=== PATIENT | female | born 1945 | race Caucasian/White ===

== ENCOUNTER 2024-01-16 14:05 | Inpatient (IN) ==
--- NOTE | 2024-01-16 14:19 | ED Triage Note ---
Date of Service January 16, 2024 Provider in Triage Author: Jesus Conley History of Present Illness This patient was briefly evaluated while in triage. An abbreviated physical exam was performed. This patient is a 78-year-old Female who presents to the ED for evaluation nausea/vomiting/diarrhea, weakness, syncope in the last several days seen by urology today and was scheduled for surgery tomorrow came from [facility] with sodium on 121 wasn't taking diabetic medications x 5 days, BSGs were in the 400s Physical Exam GENERAL: NAD CARDIOVASCULAR: RRR RESPIRATORY: CTA ABDOMEN: BS x 4. Nontender to palpation. Initial orders for labs and / or imaging were placed and patient was placed in the waiting area until a bed is available. Please see further documentation for the full ED course.
--- NOTE | 2024-01-16 15:31 | Emergency Department Note ---
Impression & Plan Weakness, Mass of bladder, Acute hyponatremia, Elevated serum creatinine ED Provider Note Provider: Walker Rahman MD DATE OF SERVICE: 01/16/2024 CHIEF COMPLAINT: Weight, nausea, abnormal blood work HISTORY OF PRESENT ILLNESS: Patient is a 78-year-old female distant history of cervical cancer, [id number] diabetes, hypertension, and recently found bladder mass sent in today after abnormal blood work. Patient's for about the past 3 weeks has been having some pain in the left lower quadrant of the abdomen/groin region. Lives in [place] by herself. Had a workup there in the outpatient setting with a CT scan showing a left bladder mass. Son lives in town here and works for the health system and as such patient came here for urology appointment regarding this today. Patient saw urology and then went to anesthesia for eval for likely cystoscopy and surgery tomorrow with urology. From this her sodium level was noted to be 121. Patient has been reporting over the past week significant nausea and vomiting. Increased weakness. Continued pain but no change in the left lower quadrant abdominal pain. Denies chest pain. Maybe a little bit winded with exertion and some mild headaches at times. Last night had a near syncopal event but did not fall to the ground when getting out of the shower. Family was there to help her. W was reportedly "out of it "for a few hours according to son and [id number]. Moving all extremities now. Does endorse a little bit of nausea. Blood sugars have been running high and the patient for almost a week has not been taking her home medications. Lives by herself but on the weekend family went to get her and bring her here so she could be cared for until her appointment today and they are concerned how long she may have been weak and not herself there. Patient does straight cath. PAST MEDICAL HISTORY: As noted above MEDICATIONS: Reviewed no medications although several days last week did not take. Has been doing hydrocodone for pain SOCIAL HISTORY: Normally resides by herself PHYSICAL EXAM: GENERAL: alert and oriented in no acute distress on stretcher Head: normocephalic and atraumatic EYES: No injection, discharge or icterus. EOMI. NECK: Trachea midline. ENT: Mucous membranes pink and moist. LUNGS: Airway patent. No retractions. Breath sounds clear with good air entry bilaterally. HEART: Regular rate and rhythm. No chest wall tenderness ABDOMEN: Soft with some mild left lower quadrant tenderness. No left flank tenderness. No peritonitis or guarding. SKIN: Acyanotic, warm, dry, without rashes EXTREMITIES: Without swelling, tenderness or deformity NEUROLOGICAL: No focal deficits. No aphasia. No facial droop or slurred speech. Ambulatory. EK bpm sinus rhythm occasional PVC. No acute ST segment elevation or depression with a QTc of 450. CONTINUOUS CARDIAC MONITORING: was ordered and showed a heart rate of 80s to 90s bpm in normal sinus rhythm rare PVCs Patient's laboratory studies and imaging reviewed. Differential includes electrolyte abnormality, CVA, ICH, meningitis, ACS, PE, appendicitis, infections, diverticulitis, UTI, obstruction, mesenteric ischemia, aortic pathology, inflammatory bowel disease, renal colic, PUD, pancreatitis, biliary pathology, hernia, volvulus, constipation, as well as other pathologies. IMPRESSION/MEDICAL DECISION MAKING: Did recheck chemistries here and confirms hyponatremia sodium 121. Patient answers questions and seems appropriate here. Does seem to minimize symptoms to some degree. Blood work shows a creatinine 1.6. Known history of left bladder mass and some left hydronephrosis based on outpatient scan available in the medical record system. Was following with urology with hopes for possible surgical evaluation of this and procedure. Given the low sodium and her nausea and vomiting discussed with her staying here for further care. Some IV fluid and antiemetics given here. Hydrocodone is working for pain at this time and she did not request anything further for this. Will have nursing obtain a straight cath bladder sample as the patient straight caths. Patient's abdominal pain has been constant and has had CT imaging for this and do not feel at this time we need repeat imaging. There are no other significant focal neurological deficits and I doubt acute CVA or head bleed at this point. Family updated on plan for further care here and hospitalist contacted. DIAGNOSIS: Weakness, hyponatremia, bladder mass, elevated creatinine DISPOSITION: Hospitalist will evaluate Patient was agreeable with this plan. Past Med/Surg History Problem List (Updated 01/16/24 @ 17:42 by Prema Bryson PA-C) Diabetes mellitus type 2 in nonobese Ureteral obstruction, left UTI (urinary tract infection) Pelvic mass Elevated serum creatinine (Acute) Acute hyponatremia (Acute) Mass of bladder (Acute) Weakness (Acute) Bladder mass Gross hematuria Encounter for pre-operative examination Hypertension Diabetes Prolapse of female pelvic organs Acute urinary retention Frequent UTI Medical History (Updated 01/16/24 @ 17:42 by Prema Bryson PA-C) Bladder mass Osteoporosis Gross hematuria GERD (gastroesophageal reflux disease) Sleep apnea no device Family history of reaction to anesthesia SISTER - N/V Nausea and vomiting after administration of anesthetic agent Frequent UTI as of 01/16/24, currently on abx HTN (hypertension) Diabetes NIDDM Per patient's daughter in law- patient went off DM meds five days ago- as of 01/15/24- glucose was in 400s- patient restarted diabetes meds 01/15/24 (except Ozempic) Cervical cancer hx 1982, hx radiation , and 2 nicole implants Surgical History S/P cystoscopy with ureteral stent placement w/ureteroscopy, bilat. RP, urethral dilation, 2021 History of endoscopy History of colonoscopy History of surgery nicole implants for hx cervical cancer History of cholecystectomy Family History Grandmother Family history of diabetes mellitus Mother Pre-diabetes Social History Smoking Status: Never smoker Second Hand Exposure: No; Do You Dip or Chew Tobacco: No; Hx Alcohol Use: Yes (years ago, no longer drinks) Hx Substance Use: No Preferred Language: Persian Communication Ability: Effective Elastic Attacher Chainstitch Required: No Beliefs That Will Affect Care: None marital status: / Current Living Situation: Alone current occupational status: retired Feels Safe at Home: Yes Assistive Devices: Glasses Allergies Allergies Allergy/AdvReac Type Severity Reaction Status Date / Time No Known Allergies Allergy Verified 01/16/24 11:49 Home Meds Home Medications Medication Instructions Recorded Confirmed diltiazem HCl 180 mg 180 mg PO QAM 06/23/21 01/16/24 capsule,extended release 24 hr (Cardizem CD) glipizide 10 mg tablet 10 mg PO QAM 06/23/21 01/16/24 lisinopril 20 mg tablet 20 mg PO QAM 06/23/21 01/16/24 magnesium oxide 400 mg PO BID 06/23/21 01/16/24 metformin 500 mg tablet 1,000 mg PO BID 06/23/21 01/16/24 pantoprazole 40 mg tablet,delayed 40 mg PO QAM 06/23/21 01/16/24 release (Protonix) sitagliptin phosphate 100 mg 100 mg PO QAM 06/23/21 01/16/24 tablet (Januvia) cinnamon bark 500 mg capsule 1,000 mg PO QAM 07/14/21 01/16/24 (Cinnamon) multivitamin 1 cap PO QAM 07/14/21 01/16/24 prednisone 2 mg tablet,delayed 2 mg PO QAM 07/14/21 01/16/24 release fluconazole 200 mg tablet 200 mg PO DAILY 01/16/24 01/16/24 gabapentin 400 mg capsule 400 mg PO TID 01/16/24 01/16/24 hydrocodone bitartrate 10 mg 10 mg PO Q4H PRN Pain 01/16/24 01/16/24 capsule, oral only, extended rel 12 hr pravastatin 20 mg tablet 20 mg PO DAILY 01/16/24 01/16/24 semaglutide 0.25 mg or 0.5 mg (2 0.5 mg subcut Q7D 01/16/24 01/16/24 mg/3 mL) subcutaneous pen injector (Ozempic) Results & Data (ED) Vital Signs Vital Signs - 24 hr 01/16/24 14:17 01/16/24 14:57 01/16/24 14:57 Temperature 36.4 C L Temperature Source Oral Pulse Rate 82 85 Pulse Rate [Apical] 87 Respiratory Rate 18 17 17 Respiratory Effort / Characteristics Non-Labored Spontaneous Non-Labored Spontaneous Respiratory Depth Normal Normal Respiratory Pattern Regular Blood Pressure 105/58 L Blood Pressure [Left Arm] 106/56 L Blood Pressure Mean 73 Blood Pressure Mean [Left Arm] 72 Blood Pressure Position [Left Arm] Sitting Pulse Oximetry 98 99 98 Oxygen Delivery Method Room Air Room Air Room Air Sepsis Recent Fever Within 48 Hours No Sepsis New/Unexplained Change in Mental Status N/A Sepsis Action Taken by Nursing No Action Required 01/16/24 15:07 01/16/24 16:08 Temperature Temperature Source Pulse Rate 93 H Pulse Rate [Apical] 81 Respiratory Rate 20 Respiratory Effort / Characteristics Non-Labored Spontaneous Respiratory Depth Normal Respiratory Pattern Blood Pressure Blood Pressure [Left Arm] 121/65 Blood Pressure Mean Blood Pressure Mean [Left Arm] 83 Blood Pressure Position [Left Arm] Semi-fowlers Pulse Oximetry 96 Oxygen Delivery Method Room Air Sepsis Recent Fever Within 48 Hours Sepsis New/Unexplained Change in Mental Status Sepsis Action Taken by Nursing Laboratory Data 01/16/24 20:13 Lab Results 01/16/24 01/16/24 Range/Units 15:07 16:26 Sodium 121 L (136-145) mmol/L Potassium 3.4 L (3.5-5.1) mmol/L Chloride 87 L (98-107) mmol/L Carbon Dioxide 23 (21-32) mmol/L Anion Gap 11 (3-11) BUN 19 (6-23) mg/dl Creatinine 1.66 H (0.6-1.2) mg/dl Est Cr Clr Drug Dosing 26.6 ml/min eGFR 31.58 BUN/Creatinine Ratio 11.4 (10-20) Glucose 123 H (70-99(Fasting)) mg/dl Osmolality 259 L (280-300) mOsm/kg Calcium 8.3 L (8.6-10.3) mg/dl Magnesium 1.7 (1.7-2.4) mg/dl Total Bilirubin 0.5 (0.2-1.0) mg/dl AST 33 (13-39) U/L ALT 20 (7-52) U/L Alkaline Phosphatase 54 (34-104) U/L Troponin I High Sens 11.1 (0-14) pg/ml Total Protein 6.9 (6.0-8.3) gm/dl Albumin 3.2 L (3.4-5.0) gm/dl Globulin 3.7 (2.5-4.0) gm/dl Albumin/Globulin Ratio 0.9 (0.9-2) TSH 2.523 (0.300-4.500) uIu/ml Urine Color Dark Yellow Urine Appearance Turbid A (Clear) Urine pH 5.5 (4.5-7.5) Ur Specific [place] 1.018 (1.000-1.030) Urine Protein 2+ H (Negative) Urine Glucose (UA) Negative (Negative) Urine Ketones Trace H (Negative) Urine Blood 2+ H (Negative) Urine Nitrite Negative (Negative) Urine Bilirubin Negative (Negative) Urine Urobilinogen Negative (Negative) Ur Leukocyte Esterase 3+ H (Negative) Urine WBC (Auto) >50 H (0-5) /hpf Urine RBC (Auto) 0-2 (0-2) /hpf U Hyaline Cast (Auto) >20 H (0-2) /lpf U Epithel Cells (Auto) 6-10 H (0-2) /hpf Urine Bacteria (Auto) None Seen (None Seen) Urine Mucus Present A (None Prsent) Urine Osmolality 307 L (500-800) mOsm/kg Ur Random Sodium 57 mmol/L Administered Medications Acetaminophen (Acetaminophen 325 Mg Tab) 650 mg PO Q4H PRN PRN Reason: Pain or Fever Stop: 02/15/24 19:26 Last Admin: 01/16/24 21:06 Dose: 650 mg Documented By: JUAN Gabapentin (Gabapentin 400 Mg Cap) 400 mg PO TID [facility] Stop: 02/15/24 20:59 Last Admin: 01/16/24 21:06 Dose: 400 mg Documented By: JUAN Ceftriaxone Sodium (Rocephin) 2,000 mg in 50 mls @ 100 mls/hr IV Q24H [facility] Stop: 01/26/24 17:59 Last Infusion: 01/16/24 18:50 Dose: Infused Documented By: Admin: 01/16/24 18:19 Dose: 100 mls/hr Documented By: ADRIANO Insulin Aspart (Insulin Aspart Per Unit Charge) 0 units SC ACHS [facility] Stop: 02/15/24 19:26 Last Admin: 01/16/24 21:47 Dose: Not Given Documented By: Admin: 01/16/24 20:57 Dose: Not Given Documented By: JUAN Insulin Glargine (Lantus Per Unit Charge) 6 units SQ BID [facility] Stop: 02/15/24 20:59 Last Admin: 01/16/24 21:47 Dose: Not Given Documented By: JUAN Miscellaneous (Carbohydrates For Hypoglycemia ) 15 - 30 gm PO UD PRN PRN Reason: Hypoglycemia Protocol Stop: 02/15/24 19:26 Last Admin: 01/16/24 20:58 Dose: 30 gm Documented By: JUAN Discontinued Medications Sodium Chloride (Nss) 500 mls @ 999 mls/hr IV .Q31M ONE Stop: 01/16/24 15:51 Last Infusion: 01/16/24 17:00 Dose: Infused Documented By: Admin: 01/16/24 16:10 Dose: 999 mls/hr Documented By: ADRIANO Ondansetron HCl (Ondansetron Inj 2 Mg/Ml 2 Ml Vial) 4 mg IV NOW STA Stop: 01/16/24 15:22 Last Admin: 01/16/24 16:10 Dose: 4 mg Documented By: ADRIANO Potassium Chloride (Potassium Chloride Crtab 20 Meq Tabcr) 40 meq PO NOW STA Stop: 01/16/24 17:18 Last Admin: 01/16/24 18:18 Dose: 40 meq Documented By: ADRIANO Discharge Plan Visit Data Chief Complaint: Abnormal Labs/Diagnostic Testing Stated Complaint: HIGH SODIUM LEVEL ED Provider: Walker Rahman Discharge Problem: Weakness, Mass of bladder, Acute hyponatremia, Elevated serum creatinine Patient Disposition: Being Evaluated by Hospitalist Discharge Instructions Interventions: ED Discharge Assessment Last Done: 01/16/24 20:18
[2024-01-16 15:52] LABS: Albumin Globulin Ratio 0.9 (0.9-2); Albumin Level 3.2 gm/dl (3.4-5.0); BUN Creatinine Ratio 11.4 (10-20); Bilirubin,Total 0.5 mg/dl (0.2-1.0); Calcium 8.3 mg/dl (8.6-10.3); Creatinine Clr Calc Pharmacy 26.6 ml/min; Globulin 3.7 gm/dl (2.5-4.0); Magnesium 1.7 mg/dl (1.7-2.4); Potassium 3.4 mmol/L (3.5-5.1); Total Protein 6.9 gm/dl (6.0-8.3)
[2024-01-16 15:59] LABS: Troponin I High Sensitivity 11.1 pg/ml (0-14)
[2024-01-16 16:08] LABS: Thyroid Stimulating Hormone 2.523 uIu/ml (0.300-4.500)
[2024-01-16] MEDS: ONDANSETRON INJ 2 MG/ML 2 ML VIAL IV STA (16:10)
[2024-01-16] MEDS: SODIUM CHLORIDE 0.9% 500 ML IV ONE (16:10)
[2024-01-16 17:05] LABS: Appearance Urine Turbid (Clear); Bacteria Urine Automated None Seen (None Seen); Bilirubin Urine Negative (Negative); Blood Urine 2+ (Negative); Cast Urine Automated >20 /lpf (0-2); Color Urine Dark Yellow; Glucose Urine UA Negative (Negative); Ketones Urine Trace (Negative); Leukocyte Esterase Urine 3+ (Negative); Mucus Urine Present (None Prsent); Nitrite Urine Negative (Negative); Protein Urine 2+ (Negative); RBC Urine Automated 0-2 /hpf (0-2); Specific Gravity Urine 1.018 (1.000-1.030); Urobilinogen Urine Negative (Negative); WBC Urine Automated >50 /hpf (0-5); pH Urine 5.5 (4.5-7.5)
--- NOTE | 2024-01-16 17:26 | History & Physical Report ---
Date of Service January 16, 2024 Assessment & Plan (1) Acute hyponatremia: Plan: Hypochloremic hyponatremia in setting of a 6x6 cm pelvic mass, n/v/d and poor oral intake - Admit to pcu - Diabetic diet - Urine osmol 307 mOsm and serum osmol is 259 suggestive of SIADH - Random urine sodium ordered, pending - Possibly mixed picture with a degree of dehydration, received 1L of NSS in ED - Repeat BMP @ 2100 and 4h until AM - Defer further fluids for now and fluid restrict to 1500 ml (2) Pelvic mass: Plan: Newly found/discovered, highly suspicious for malignancy - Likely the cause of her left lower quadrant pain and appears to be stemming from the cervix and invading the bladder and compressing the left ureter - Case discussed with Dr. Johnson, plans for tissue bx and possibly left ureteral stent tomorrow (01/16) - NPO after MN - Pain control with Dilaudid 0.25mg q4 prn moderate pain and 0.5mg q4 prn severe pain - Antiemetics with Zofran 4mg IV q6 prn n/v (3) UTI (urinary tract infection): Plan: Acute - No culture data to review as this was done at outside hospital - Leukocytosis on CBC this AM with neutrophilic predominance - UA appears grossly infected, urine culture ordered, pending - Received 3 doses of Macrobid, will d/c in favor of Ceftriaxone 2g IV daily, first dose now - Repeat CBC in AM (4) Ureteral obstruction, left: Plan: Uncertain chronicity but from effect of pelvic mass and likely contributing to her elevation in her serum creatinine - Received 1L of NSS, defer further fluids for now - NPO after MN and consult to urology, Dr. Johnson, OR tomorrow for possible stent placement - Hold Lisinopril and avoid any nephrotoxic meds in setting of mild IVONNE, repeat BMP in AM (5) Diabetes mellitus type 2 in nonobese: Plan: Chronic - Not taking any of her medications - Hold all DM meds - Basal/bolus ordered - Accuchecks ac and hs - Update A1c Plan Other medical issues - Hypokalemia - replaced with KCl 40 meq pox1 - HTN - chronic, continue Diltiazem - GERD - continue Protonix - Chronic right shoulder pain - placed on Prednisone 2mg daily x several years, does not require stress dose steroids at present. continue. Defer Lovenox due to plans for OR tomorrow with tissue bx. Will order SCDs to b/l LE. PT/OT eval and treat. AM labs ordered. Plan of care has been d/w Dr. Altamirano who will also see and evaluate this patient. Further orders will be implemented as warranted by attending. History of Present Illness Chief Complaint: Abnormal labs Primary Care Provider: MACRINA Ramirez Rosaura is a 78 yo F with a pmhx of cervical cancer s/p radiation in 1982, DMT2, HTN, and HLD who presents to the ER accompanied by her family with multiple complaints/concerns. The patient normally lives alone in [place] and her family reside in [place] (son and daughter in law). Reportedly, the patient has been suffering from over 3 weeks of left sided pelvic pain. The patient notes that her pain is exacerbated by certain position changes. She also notes that over the past week she has been having episodes of diarrhea, nausea, dry heaves and vomiting. She does not feel that it has worsened since the onset 3 weeks ago, however, since the onset, she finally presented to her family doctor last Tuesday for evaluation. She was referred to the ER where she lives where she underwent a CT scan as well as urine studies. She was found to have a pelvic mass that is compressing her left ureter as well as a UTI. She was ordered an antibiotic but it was not picked up and started until this past Tuesday by her family. Her family, who works at [employer], was able to make arrangements for her to be seen by [facility]. She had labs done this AM and had an appointment with Dr. Johnson who reviewed her CT and wanted to make arrangements for an elective tissue biopsy as well as a possible stent of the left ureter, however, she was found to have a sodium level of 121. Family felt that she warranted evaluation and possible admission and brought her to the ER. In her earlier labs, she was also noted to have a leukocytosis of 15.25 with neutrophilic predominance. Her creatinine is elevated 1.66 and potassium is low at 3.4. Her family notes that she has not been taking any of her medications and that she has not been eating/drinking well. She is also unsteady on her feet and they are concerned about her being a fall risk. In the ER, she was medicated with a dose of IV Zofran and received 1L of NSS and has been referred for admission to the hospital medicine service. Allergies Allergy/AdvReac Type Severity Reaction Status Date / Time No Known Allergies Allergy Verified 01/16/24 11:49 Home Medications Medication Instructions Recorded Confirmed Type diltiazem HCl 180 mg 180 mg PO QAM 06/23/21 01/16/24 History capsule,extended release 24 hr (Cardizem CD) glipizide 10 mg tablet 10 mg PO QAM 06/23/21 01/16/24 History lisinopril 20 mg tablet 20 mg PO QAM 06/23/21 01/16/24 History magnesium oxide 400 mg PO BID 06/23/21 01/16/24 History metformin 500 mg tablet 1,000 mg PO BID 06/23/21 01/16/24 History pantoprazole 40 mg tablet,delayed 40 mg PO QAM 06/23/21 01/16/24 History release (Protonix) sitagliptin phosphate 100 mg 100 mg PO QAM 06/23/21 01/16/24 History tablet (Januvia) cinnamon bark 500 mg capsule 1,000 mg PO QAM 07/14/21 01/16/24 History (Cinnamon) multivitamin 1 cap PO QAM 07/14/21 01/16/24 History prednisone 2 mg tablet,delayed 2 mg PO QAM 07/14/21 01/16/24 History release fluconazole 200 mg tablet 200 mg PO DAILY 01/16/24 01/16/24 History gabapentin 400 mg capsule 400 mg PO TID 01/16/24 01/16/24 History hydrocodone bitartrate 10 mg 10 mg PO Q4H PRN Pain 01/16/24 01/16/24 History capsule, oral only, extended rel 12 hr pravastatin 20 mg tablet 20 mg PO DAILY 01/16/24 01/16/24 History semaglutide 0.25 mg or 0.5 mg (2 0.5 mg subcut Q7D 01/16/24 01/16/24 History mg/3 mL) subcutaneous pen injector (Ozempic) Past Med/Surg History Problem List (Updated 01/16/24 @ 17:42 by Prema Bryson PA-C) Diabetes mellitus type 2 in nonobese Ureteral obstruction, left UTI (urinary tract infection) Pelvic mass Elevated serum creatinine (Acute) Acute hyponatremia (Acute) Mass of bladder (Acute) Weakness (Acute) Bladder mass Gross hematuria Encounter for pre-operative examination Hypertension Diabetes Prolapse of female pelvic organs Acute urinary retention Frequent UTI Medical History (Updated 01/16/24 @ 17:42 by Prema Bryson PA-C) Bladder mass Osteoporosis Gross hematuria GERD (gastroesophageal reflux disease) Sleep apnea no device Family history of reaction to anesthesia SISTER - N/V Nausea and vomiting after administration of anesthetic agent Frequent UTI as of 01/16/24, currently on abx HTN (hypertension) Diabetes NIDDM Per patient's daughter in law- patient went off DM meds five days ago- as of 01/15/24- glucose was in 400s- patient restarted diabetes meds 01/15/24 (except Ozempic) Cervical cancer hx 1982, hx radiation , and 2 nicole implants Surgical History S/P cystoscopy with ureteral stent placement w/ureteroscopy, bilat. RP, urethral dilation, 2021 History of endoscopy History of colonoscopy History of surgery nicole implants for hx cervical cancer History of cholecystectomy Family History Grandmother Family history of diabetes mellitus Mother Pre-diabetes Social History Smoking Status: Never smoker Second Hand Exposure: No; Do You Dip or Chew Tobacco: No; Hx Alcohol Use: Yes (years ago, no longer drinks) Hx Substance Use: No Preferred Language: Kazakh Communication Ability: Effective Client Customer Manager Required: No Beliefs That Will Affect Care: None marital status: / Current Living Situation: Alone current occupational status: retired Feels Safe at Home: Yes Assistive Devices: Glasses Review of Systems 2 Review of Systems: All systems reviewed and are unremarkable except as noted in HPI and below. Denies fever, chills, fatigue, headache, nasal congestion, sore throat, cough, chest pain, shortness of breath, palpitations, orthopnea, PND, constipation, dysuria, frequency, back pain, joint pain or swelling, easy bruising or bleeding, skin lesions or rashes. Physical Exam 2 Physical Exam: GENERAL: 78 yo well nourished elderly WF. NAD. EYES: EOMI. PERRLA. Anicteric. HENT: Moist mucous membranes. No scleral icterus. No cervical lymphadenopathy. LUNGS: Clear to auscultation bilaterally. No accessory muscle use. No W/R/R. CARDIOVASCULAR: Regular rate and rhythm. No M/G/R. No JVD. ABDOMEN: Soft, moderately distended with LLQ tenderness. BS normoactive x 4 quad. EXTREMITIES: No edema. Non-tender. Peripheral pulses +2/4. NEUROLOGIC: A&O x3. No focal neurological deficits. CN II-XII grossly intact. PSYCHIATRIC: Cooperative. Appropriate mood and affect. SKIN: Warm, dry, intact. No rashes or lesions. Results & Data Results & Data Vital Signs (Past 12 Hours) Vital Signs Temp Pulse Pulse Resp BP BP Pulse Ox 01/16/24 16:08 81 20 121/65 96 01/16/24 15:07 93 H 01/16/24 14:57 85 17 98 01/16/24 14:57 87 17 106/56 L 99 01/16/24 14:17 36.4 C L 82 18 105/58 L 98 O2 Del Method 01/16/24 16:08 Room Air 01/16/24 15:07 01/16/24 14:57 Room Air 01/16/24 14:57 Room Air 01/16/24 14:17 Room Air Laboratory Results 01/16/24 15:07 ECG Additional Comments: NSR w/ PVC - rate 88, no ST elevation Code Status & VTE Plan Code Status Full code upon discussion with patient and family VTE Prophylaxis Plan VTE Prophylaxis will be ordered: Yes Supervising Physician Co-Signing Physician Notes Patient seen and examined, chart reviewed, case discussed with Prema Bryson PA-C and I agree with the assessment and plan as above except as otherwise noted Labs and images reviewed 78-year-old female with past medical history of a pelvic mass highly spacious for malignancy who presents with hyponatremia and IVONNE. Also with UTI. Continue on Rocephin for UTI. Hyponatremic to 121 on admission. Urine sodium is inappropriately elevated suspect SIADH either from pain or malignancy. Patient is fluid restricted. Has received NSS 500 cc while in the ER. Restrict fluid intake to 1300 cc daily, if sodium does not improve can add salt tablets. If sodium downtrends or goes below 120 will add 50 cc boluses of 3% saline. Sodium trended every 4 hours. Signed out to overnight team for monitoring. Patient is pending stent placement for a left ureteral obstruction and biopsy of a pelvic mass. This is anticipated for 01/16 although this may need to be delayed as with optimal rate of sodium rise may only be around [id number] by this time. Seen discussed with family extensively at bedside. No additional questions. Continue as above PG Care Time/CCT Total # of Minutes Spent Total Time Spent with Patient: Total time spent is greater than 50% in coordination of care (as documented) at patient's floor/unit and/or counseling patient: 80 minutes Coding Level of Care Code 43964 INT INP/OBS CARE 3/75MIN Diagnoses Acute hyponatremia E87.1 Pelvic mass R19.00 UTI (urinary tract infection) N39.0 Ureteral obstruction, left N13.5 Diabetes mellitus type 2 in nonobese E11.9
[2024-01-16] MEDS: POTASSIUM CHLORIDE CRTAB 20 MEQ TABCR PO STA (18:18)
[2024-01-16] MEDS: cefTRIAXone SODIUM 2,000 MG/50 ML BAG IV SCH (18:19)
[2024-01-16] MEDS ORDERED: DEXTROSE 50% 50 ML SYRINGE IV PRN (19:27)
[2024-01-16] MEDS ORDERED: MAGNESIUM HYDROXIDE SUSP 30 ML UDC PO PRN (19:27)
[2024-01-16] MEDS ORDERED: ONDANSETRON INJ 2 MG/ML 2 ML VIAL IV PRN (19:27)
[2024-01-16] MEDS ORDERED: GLUCAGON FOR INJ 1 MG VIAL SQ PRN (19:27)
[2024-01-16] MEDS ORDERED: ALUMINUM/MAGNESIUM SUSP 30 ML UDC PO PRN (19:27)
[2024-01-16] MEDS ORDERED: GLUCOSE 40% GEL 15 GM TUBE PO PRN (19:27)
[2024-01-16] MEDS ORDERED: HYDROmorphone INJ 0.5 MG/0.5 ML SYR IV PRN (19:27)
[2024-01-16] MEDS ORDERED: GLUCOSE 10 TAB/TUBE PO PRN (19:27)
[2024-01-16 20:51] LABS: BUN Creatinine Ratio 13.2 (10-20); Calcium 7.9 mg/dl (8.6-10.3); Creatinine Clr Calc Pharmacy 29.2 ml/min; Potassium 3.2 mmol/L (3.5-5.1)
[2024-01-16] MEDS: INSULIN ASPART PER UNIT CHARGE SC SCH (20:57)
[2024-01-16] MEDS: CARBOHYDRATES FOR HYPOGLYCEMIA PO PRN (20:58)
[2024-01-16] MEDS: GABAPENTIN 400 MG CAP PO SCH (21:06)
[2024-01-16] MEDS: ACETAMINOPHEN 325 MG TAB PO PRN (21:06)
[2024-01-16] MEDS: LANTUS PER UNIT CHARGE SQ SCH (21:47)
--- NOTE | 2024-01-16 23:02 | Urology Consultation ---
Date of Consultation January 16, 2024 Assessment & Plan (1) Pelvic mass: Patient has been admitted on the hospitalist service. From a urologic perspective we recommend the following: The patient is tentatively scheduled for cystoscopy with potential biopsy of a pelvic mass on 01/17/[address] Johnson Patient has been found to have hyponatremia requiring admission to the hospital -The hospital service is currently working on correcting the patient's hyponatremia fluid restriction. They are going to see however sodium response to this modality with further interventions to be undertaken based on how her sodium trends. Performance of patient's cystoscopy will be dependent on patient's sodium levels on serial labs Would recommend keeping the patient n.p.o. for the present time in the event that her sodium does correct appropriately and she can undergo her planned procedure History of Present Illness Reason for Consultation: Pelvic mass Attending Physician: Yonatan Altamirano MD History of Present Illness This is a 78-year-old female who has a history of radiation for cervical cancer approximately 41 years ago. She was recently found to have a mass in the posterior aspect of the lower portion of her bladder with obstruction of the left ureter. This was diagnosed by CT scan at an outside facility on 01/08this showed the patient had a left-sided urinary obstruction secondary to encasement of the distal left ureter by soft tissue mass. Patient was seen in the office today by Dr. Osuna and the [facility] group urology and he felt it was in the best patient's interest to obtain a tissue diagnosis as this has not yet been done. Dr. Goddard had tentatively scheduled the patient for a cystoscopy and biopsy of the a forementioned mass on 01/17/2024. Patient did have outpatient labs done today in anticipation of planned procedure.. CBC revealed white blood cell count was elevated 15.2. Hemoglobin and hematocrit are 11.9 and 36.0. Platelet count was 20 17,000. Chemistry profile showed sodium is 121 with a potassium of 3.4. BUN and creatinine were 19 and 1.4. Because of patient's abnormal sodium was recommended that she report to the hospital for admission for correction of her sodium. Since arrival to the hospital she has had a repeat chemistry profile shows sod ium of 123 with a potassium of 3.2. Her BUN and creatinine are 21.5. She denies any nausea or vomiting. She denies any fevers, shakes, or chills. Patient notes that she does have a history of urinary dysfunction/urine incontinence and she self caths herself several times per day. She says she has had no difficulty cathing herself but notes that her urine output has been somewhat decreased. I visited with the patient at the bedside and she presently is resting comfortably in bed without complaints. She notes only minor discomfort on the left side of her abdomen. At the time of my interview the patient was resting comfortably in bed and she has no distress Allergies Allergy/AdvReac Type Severity Reaction Status Date / Time No Known Allergies Allergy Verified 01/16/24 11:49 Home Medications Medication Instructions Recorded Confirmed Type diltiazem HCl 180 mg 180 mg PO QAM 06/23/21 01/16/24 History capsule,extended release 24 hr (Cardizem CD) glipizide 10 mg tablet 10 mg PO QAM 06/23/21 01/16/24 History lisinopril 20 mg tablet 20 mg PO QAM 06/23/21 01/16/24 History magnesium oxide 400 mg PO BID 06/23/21 01/16/24 History metformin 500 mg tablet 1,000 mg PO BID 06/23/21 01/16/24 History pantoprazole 40 mg tablet,delayed 40 mg PO QAM 06/23/21 01/16/24 History release (Protonix) sitagliptin phosphate 100 mg 100 mg PO QAM 06/23/21 01/16/24 History tablet (Januvia) cinnamon bark 500 mg capsule 1,000 mg PO QAM 07/14/21 01/16/24 History (Cinnamon) multivitamin 1 cap PO QAM 07/14/21 01/16/24 History prednisone 2 mg tablet,delayed 2 mg PO QAM 07/14/21 01/16/24 History release fluconazole 200 mg tablet 200 mg PO DAILY 01/16/24 01/16/24 History gabapentin 400 mg capsule 400 mg PO TID 01/16/24 01/16/24 History hydrocodone bitartrate 10 mg 10 mg PO Q4H PRN Pain 01/16/24 01/16/24 History capsule, oral only, extended rel 12 hr pravastatin 20 mg tablet 20 mg PO DAILY 01/16/24 01/16/24 History semaglutide 0.25 mg or 0.5 mg (2 0.5 mg subcut Q7D 01/16/24 01/16/24 History mg/3 mL) subcutaneous pen injector (Ozempic) Patient History Medical History Bladder mass Osteoporosis Gross hematuria GERD (gastroesophageal reflux disease) Sleep apnea no device Family history of reaction to anesthesia SISTER - N/V Nausea and vomiting after administration of anesthetic agent Frequent UTI as of 01/16/24, currently on abx HTN (hypertension) Diabetes NIDDM Per patient's daughter in law- patient went off DM meds five days ago- as of 01/15/24- glucose was in 400s- patient restarted diabetes meds 01/15/24 (except Ozempic) Cervical cancer hx 1982, hx radiation , and 2 nicole implants Surgical History S/P cystoscopy with ureteral stent placement w/ureteroscopy, bilat. RP, urethral dilation, 2021 History of endoscopy History of colonoscopy History of surgery nicole implants for hx cervical cancer History of cholecystectomy Family History Grandmother Family history of diabetes mellitus Mother Pre-diabetes Social History Smoking Status: Never smoker Second Hand Exposure: No; Do You Dip or Chew Tobacco: No; Hx Alcohol Use: No Hx Substance Use: No Preferred Language: Citizen Of [place] Communication Ability: Effective Change Director Required: No Beliefs That Will Affect Care: None marital status: / Current Living Situation: Alone Current Living Situation Comment: home alone current occupational status: retired Feels Safe at Home: Yes Assistive Devices: Glasses Review of Systems Review of Systems: All systems reviewed & are unremarkable except as noted in HPI & below Physical Exam Constitutional: WD/WN, vitals as above Eyes: Wears glasses ENMT: Ears: no hearing impairment Mouth: no oropharynx abnormality Neck: trachea midline Respiratory: normal respiratory effort; no respiratory distress and no labored breathing Cardiovascular: Rate/Rhythm: regular rate and regular rhythm Gastrointestinal (Abdomen): Abdomen is soft and nondistended. There is minimal pain with palpation in the left lower quadrant of her abdomen Musculoskeletal: No calf tenderness Neurologic: moves all extremities Psychiatric: A+Ox3, euthymic affect Results & Data Vital Signs (Past 12 Hours) Vital Signs Temp Pulse Pulse Resp BP BP Pulse Ox 01/16/24 21:36 36.7 C 85 18 93/53 L 95 01/16/24 20:18 91 H 16 109/49 L 98 01/16/24 20:16 85 16 109/49 L 98 01/16/24 19:52 91 H 115/56 L 97 01/16/24 19:00 91 H 18 127/83 95 01/16/24 18:53 83 01/16/24 18:13 82 16 116/57 L 92 01/16/24 16:08 81 20 121/65 96 01/16/24 15:07 93 H 01/16/24 14:57 85 17 98 01/16/24 14:57 87 17 106/56 L 99 01/16/24 14:17 36.4 C L 82 18 105/58 L 98 O2 Del Method O2 Flow Rate 01/16/24 21:36 Room Air 01/16/24 20:18 Nasal Cannula 2 01/16/24 20:16 Nasal Cannula 2 01/16/24 19:52 Nasal Cannula 2 01/16/24 19:00 Room Air 01/16/24 18:53 01/16/24 18:13 Room Air 01/16/24 16:08 Room Air 01/16/24 15:07 01/16/24 14:57 Room Air 01/16/24 14:57 Room Air 01/16/24 14:17 Room Air PG Care Time/CCT Total # of Minutes Spent Total Time Spent with Patient: Total time spent is greater than 50% in coordination of care (as documented) at patient's floor/unit and/or counseling patient: Coding Level of Care Code None Diagnoses Pelvic mass R19.00
[2024-01-17 00:59] LABS: BUN Creatinine Ratio 12.7 (10-20); Calcium 7.5 mg/dl (8.6-10.3); Creatinine Clr Calc Pharmacy 24.4 ml/min; Potassium 3.7 mmol/L (3.5-5.1)
[2024-01-17] MEDS: predniSONE 1 MG TAB PO SCH (07:59)
[2024-01-17] MEDS: dilTIAZem HCL 180 MG CAPCR PO SCH (07:59)
[2024-01-17] MEDS: PRAVASTATIN SOD 20 MG TAB PO SCH (08:00)
[2024-01-17] MEDS: PANTOprazole 40 MG TAB PO SCH (08:00)
[2024-01-17 08:14] LABS: Basophils # (auto) 0.02 K/uL (0.00-0.20); Basophils % (auto) 0.2 %; Eosinophils # (auto) 1.91 K/uL (0.00-0.50); Eosinophils % (auto) 18.1 %; Hematocrit (blood only) 30.4 % (37.0-47.0); Hemoglobin 10.3 g/dl (12.0-16.0); Immature Granulocytes # (auto) 0.05 K/uL (0.01-0.20); Immature Granulocytes % (auto) 0.5 %; Lymphocytes # (auto) 0.86 K/uL (1.20-3.40); Lymphocytes % (auto) 8.2 %; Mean Corpuscular Hemoglobin 29.1 pg (25.0-34.0); Mean Corpuscular Hgb Conc 33.9 g/dL (32.0-36.0); Mean Corpuscular Volume 85.9 fL (80.0-100.0); Mean Platelet Volume 9.5 fL (9.4-12.4); Monocytes # (auto) 0.35 K/uL (0.11-0.59); Monocytes % (auto) 3.3 %; Neutrophils # (auto) 7.36 K/uL (1.40-6.50); Neutrophils % (auto) 69.7 %; Platelet Count 357 K/uL (130-400); RDW Coefficient of Variation 13.7 % (11.5-14.5); RDW Standard Deviation 43.6 fL (36.4-46.3); Red Blood Count 3.54 M/uL (4.20-5.40); White Blood Count 10.55 K/ul (4.8-10.8)
[2024-01-17 08:25] LABS: Estimated Average Glucose 237 mg/dl; Hemoglobin A1C 9.9 % (4.5-5.6)
[2024-01-17] MEDS ORDERED: Nursing to Pharmacy Communication SCH (08:30)
[2024-01-17 08:31] LABS: BUN Creatinine Ratio 15.6 (10-20); Calcium 7.7 mg/dl (8.6-10.3); Creatinine Clr Calc Pharmacy 27.6 ml/min; Magnesium 1.7 mg/dl (1.7-2.4); Potassium 3.8 mmol/L (3.5-5.1)
--- NOTE | 2024-01-17 10:09 | Nephrology Consultation ---
Date of Consultation January 17, 2024 Assessment & Plan (1) IVONNE (acute kidney injury): (2) Hyponatremia: (3) Ureteral obstruction, left: (4) Pelvic mass: Plan Rosaura is a 78 year old female who presented with an incidental finding of hyponatremia on a workup for a bladder mass. She is asymptomatic and this is likely a combination of volume depletion, hyperglycemia, and low dietary intake causing a moderate hyponatremia that is already self-correcting. There is low suspicion for a glucocorticoid deficiency. Hyponatremia (chronic, asymptomatic, moderate to severe, volume + solute depleted) -1g NaCl now -Plasma-Lyte 500 ml -repeat urine osmolality to monitor for improvement -continue trending labs to monitor for Na level improvement -one time dose of 10 mg prednisone if sodium and BP do not improve IVONNE -non-oliguric, latest UA shows WBC, + hyaline casts, no RBC -CT 01/08 showed L sided urinary obstruction secondary to encasement of distal left ureter -electrolytes are otherwise normal with the exception of hyponatremia -volume status: slightly hypovolemic -medications are appropriate for kidney function, gabapentin dose is excessive but she seems to be tolerating it ok -continue trending labs Pelvic mass -Patient to proceed to operating room. Case discussed with anesthesia. 0.9% saline to be administered intraoperatively with close monitoring for serum sodium. History of Present Illness Reason for Consultation: hyponatremia Requesting Physician: Kaveh Henry MD Attending Physician: Kaveh Henry MD History of Present Illness Rosaura is a 78 year old female with a past medical history including cervical cancer, non-insulin dependent diabetes mellitus, hypertension, CIC use due to obstructive urinary symptoms, bladder mass, and polymyalgia rheumatica who presents with hyponatremia. Sodium levels were 121 mEq/L at admission, now 123 mEq/L after 1 L NSS. She started having left sided pelvic pain about a week ago without radiation. CT revealed a left bladder mass and mild hydronephrosis. She was also recently sick, and endorsed nausea, vomiting, and diarrhea last night. She has not been eating well. She also reports missing several doses of medications, including a few days without prednisone. She has never seen a taproom attendant before and has no family history of kidney concerns. Today, she feels well. She denies shortness of breath, difficulty breathing, or extremity edema. Most recent labs show Na 123 mEq/L, BUN 25, Cr 1.60 (uptrending from 1.43), K 3.8 mEq/L (up from 3.4 mEq/L), A1C 9.9. Urinalysis shows UTI with urine osmolality 307 mOsm/kg. Currently NPO for cystoscopy and stent placement. Plan of care was discussed with anesthesia this AM. Allergies Allergy/AdvReac Type Severity Reaction Status Date / Time No Known Allergies Allergy Verified 01/16/24 11:49 Home Medications Medication Instructions Recorded Confirmed Type diltiazem HCl 180 mg 180 mg PO QAM 06/23/21 01/16/24 History capsule,extended release 24 hr (Cardizem CD) glipizide 10 mg tablet 10 mg PO QAM 06/23/21 01/16/24 History lisinopril 20 mg tablet 20 mg PO QAM 06/23/21 01/16/24 History magnesium oxide 400 mg PO BID 06/23/21 01/16/24 History metformin 500 mg tablet 1,000 mg PO BID 06/23/21 01/16/24 History pantoprazole 40 mg tablet,delayed 40 mg PO QAM 06/23/21 01/16/24 History release (Protonix) sitagliptin phosphate 100 mg 100 mg PO QAM 06/23/21 01/16/24 History tablet (Januvia) cinnamon bark 500 mg capsule 1,000 mg PO QAM 07/14/21 01/16/24 History (Cinnamon) multivitamin 1 cap PO QAM 07/14/21 01/16/24 History prednisone 2 mg tablet,delayed 2 mg PO QAM 07/14/21 01/16/24 History release fluconazole 200 mg tablet 200 mg PO DAILY 01/16/24 01/16/24 History gabapentin 400 mg capsule 400 mg PO TID 01/16/24 01/16/24 History hydrocodone bitartrate 10 mg 10 mg PO Q4H PRN Pain 01/16/24 01/16/24 History capsule, oral only, extended rel 12 hr pravastatin 20 mg tablet 20 mg PO DAILY 01/16/24 01/16/24 History semaglutide 0.25 mg or 0.5 mg (2 0.5 mg subcut Q7D 01/16/24 01/16/24 History mg/3 mL) subcutaneous pen injector (Ozempic) Patient History Medical History Bladder mass Osteoporosis Gross hematuria GERD (gastroesophageal reflux disease) Sleep apnea no device Family history of reaction to anesthesia SISTER - N/V Nausea and vomiting after administration of anesthetic agent Frequent UTI as of 01/16/24, currently on abx HTN (hypertension) Diabetes NIDDM Per patient's daughter in law- patient went off DM meds five days ago- as of 01/15/24- glucose was in 400s- patient restarted diabetes meds 01/15/24 (except Ozempic) Cervical cancer hx 1982, hx radiation , and 2 nicole implants Surgical History S/P cystoscopy with ureteral stent placement w/ureteroscopy, bilat. RP, urethral dilation, 2021 History of endoscopy History of colonoscopy History of surgery nicole implants for hx cervical cancer History of cholecystectomy Family History Grandmother Family history of diabetes mellitus Mother Pre-diabetes Social History Smoking Status: Never smoker Second Hand Exposure: No; Do You Dip or Chew Tobacco: No; Hx Alcohol Use: No Hx Substance Use: No Preferred Language: Cameroonian Communication Ability: Effective Correctional Therapy Teacher Required: No Beliefs That Will Affect Care: None marital status: / Current Living Situation: Alone Current Living Situation Comment: home alone current occupational status: retired Feels Safe at Home: Yes Assistive Devices: Glasses Review of Systems Review of Systems: All systems reviewed & are unremarkable except as noted in HPI & below Physical Exam Constitutional: well developed; no acute distress Eyes: + anicteric sclerae; no conjunctival abn ormality ENMT: Mouth: + dry oral mucous membranes Neck: normal visual inspection and trachea midline Respiratory: normal respiratory effort Auscultation: lungs clear to auscultation bilaterally Cardiovascular: Rate/Rhythm: regular rate Heart Sounds: normal S1 and normal S2 Extremities: no edema Musculoskeletal: Extremities: no cyanosis and no clubbing Skin: normal turgor; no jaundice Neurologic: Motor/Sensory: no tremor and no asterixis Psychiatric: Orientation: alert and oriented x 3 Genitourinary: Saenz draining concentrated urine Results & Data Vital Signs (Past 12 Hours) Vital Signs Temp Pulse Pulse Resp BP BP Pulse Ox 01/17/24 09:00 73 01/17/24 07:27 36.6 C 81 18 110/58 L 94 01/17/24 03:49 36.4 C L 74 18 95/58 L 96 01/16/24 23:51 87 O2 Del Method 01/17/24 09:00 01/17/24 07:27 Room Air 01/17/24 03:49 Room Air 01/16/24 23:51 Laboratory Results 01/17/24 01/17/24 01/17/24 07:52 07:38 07:19 WBC 10.55 RBC 3.54 L Hgb 10.3 L Hct 30.4 L MCV 85.9 MCH 29.1 MCHC 33.9 RDW Std Deviation 43.6 RDW Coeff of Anders 13.7 Plt Count 357 MPV 9.5 Immature Gran % (Auto) 0.5 Neut % (Auto) 69.7 Lymph % (Auto) 8.2 [place] % (Auto) 3.3 Eos % (Auto) 18.1 Baso % (Auto) 0.2 Neut # (Auto) 7.36 H Lymph # (Auto) 0.86 L [place] # (Auto) 0.35 Eos # (Auto) 1.91 H Baso # (Auto) 0.02 Immature Gran # (Auto) 0.05 Sodium 123 L Potassium 3.8 Chloride 92 L Carbon Dioxide 22 Anion Gap 9 BUN 25 H Creatinine 1.60 H Est Cr Clr Drug Dosing 27.6 eGFR 33.01 BUN/Creatinine Ratio 15.6 Glucose 107 H POC Glucose 110 H 64 L* Estimat Average Glucose 237 Hemoglobin A1c 9.9 H Osmolality Calcium 7.7 L Magnesium 1.7 Total Bilirubin AST ALT Alkaline Phosphatase Troponin I High Sens Total Protein Albumin Globulin Albumin/Globulin Ratio TSH Urine Color Urine Appearance Urine pH Ur Specific [place] Urine Protein Urine Glucose (UA) Urine Ketones Urine Blood Urine Nitrite Urine Bilirubin Urine Urobilinogen Ur Leukocyte Esterase Urine WBC (Auto) Urine RBC (Auto) U Hyaline Cast (Auto) U Epithel Cells (Auto) Urine Bacteria (Auto) Urine Mucus Urine Osmolality Ur Random Sodium 01/17/24 01/17/24 01/17/24 07:03 07:01 00:16 WBC RBC Hgb Hct MCV MCH MCHC RDW Std Deviation RDW Coeff of Anders Plt Count MPV Immature Gran % (Auto) Neut % (Auto) Lymph % (Auto) [place] % (Auto) Eos % (Auto) Baso % (Auto) Neut # (Auto) Lymph # (Auto) [place] # (Auto) Eos # (Auto) Baso # (Auto) Immature Gran # (Auto) Sodium 122 L Potassium 3.7 Chloride 91 L Carbon Dioxide 22 Anion Gap 9 BUN 23 Creatinine 1.81 H D Est Cr Clr Drug Dosing 24.4 eGFR 28.47 BUN/Creatinine Ratio 12.7 Glucose 127 H POC Glucose 56 L* 59 L* Estimat Average Glucose Hemoglobin A1c Osmolality Calcium 7.5 L Magnesium Total Bilirubin AST ALT Alkaline Phosphatase Troponin I High Sens Total Protein Albumin Globulin Albumin/Globulin Ratio TSH Urine Color Urine Appearance Urine pH Ur Specific [place] Urine Protein Urine Glucose (UA) Urine Ketones Urine Blood Urine Nitrite Urine Bilirubin Urine Urobilinogen Ur Leukocyte Esterase Urine WBC (Auto) Urine RBC (Auto) U Hyaline Cast (Auto) U Epithel Cells (Auto) Urine Bacteria (Auto) Urine Mucus Urine Osmolality Ur Random Sodium 01/16/24 01/16/24 01/16/24 21:46 21:17 21:15 WBC RBC Hgb Hct MCV MCH MCHC RDW Std Deviation RDW Coeff of Anders Plt Count MPV Immature Gran % (Auto) Neut % (Auto) Lymph % (Auto) [place] % (Auto) Eos % (Auto) Baso % (Auto) Neut # (Auto) Lymph # (Auto) [place] # (Auto) Eos # (Auto) Baso # (Auto) Immature Gran # (Auto) Sodium Potassium Chloride Carbon Dioxide Anion Gap BUN Creatinine Est Cr Clr Drug Dosing eGFR BUN/Creatinine Ratio Glucose POC Glucose 117 H 68 L* 58 L* Estimat Average Glucose Hemoglobin A1c Osmolality Calcium Magnesium Total Bilirubin AST ALT Alkaline Phosphatase Troponin I High Sens Total Protein Albumin Globulin Albumin/Globulin Ratio TSH Urine Color Urine Appearance Urine pH Ur Specific [place] Urine Protein Urine Glucose (UA) Urine Ketones Urine Blood Urine Nitrite Urine Bilirubin Urine Urobilinogen Ur Leukocyte Esterase Urine WBC (Auto) Urine RBC (Auto) U Hyaline Cast (Auto) U Epithel Cells (Auto) Urine Bacteria (Auto) Urine Mucus Urine Osmolality Ur Random Sodium 01/16/24 01/16/24 01/16/24 20:52 20:49 20:13 WBC RBC Hgb Hct MCV MCH MCHC RDW Std Deviation RDW Coeff of Anders Plt Count MPV Immature Gran % (Auto) Neut % (Auto) Lymph % (Auto) [place] % (Auto) Eos % (Auto) Baso % (Auto) Neut # (Auto) Lymph # (Auto) [place] # (Auto) Eos # (Auto) Baso # (Auto) Immature Gran # (Auto) Sodium 123 L Potassium 3.2 L Chloride 91 L Carbon Dioxide 22 Anion Gap 10 BUN 20 Creatinine 1.51 H Est Cr Clr Drug Dosing 29.2 eGFR 35.39 BUN/Creatinine Ratio 13.2 Glucose 46 L* POC Glucose 54 L* 53 L* Estimat Average Glucose Hemoglobin A1c Osmolality Calcium 7.9 L Magnesium Total Bilirubin AST ALT Alkaline Phosphatase Troponin I High Sens Total Protein Albumin Globulin Albumin/Globulin Ratio TSH Urine Color Urine Appearance Urine pH Ur Specific [place] Urine Protein Urine Glucose (UA) Urine Ketones Urine Blood Urine Nitrite Urine Bilirubin Urine Urobilinogen Ur Leukocyte Esterase Urine WBC (Auto) Urine RBC (Auto) U Hyaline Cast (Auto) U Epithel Cells (Auto) Urine Bacteria (Auto) Urine Mucus Urine Osmolality Ur Random Sodium 01/16/24 01/16/24 16:26 15:07 WBC RBC Hgb Hct MCV MCH MCHC RDW Std Deviation RDW Coeff of Anders Plt Count MPV Immature Gran % (Auto) Neut % (Auto) Lymph % (Auto) [place] % (Auto) Eos % (Auto) Baso % (Auto) Neut # (Auto) Lymph # (Auto) [place] # (Auto) Eos # (Auto) Baso # (Auto) Immature Gran # (Auto) Sodium 121 L Potassium 3.4 L Chloride 87 L Carbon Dioxide 23 Anion Gap 11 BUN 19 Creatinine 1.66 H Est Cr Clr Drug Dosing 26.6 eGFR 31.58 BUN/Creatinine Ratio 11.4 Glucose 123 H POC Glucose Estimat Average Glucose Hemoglobin A1c Osmolality 259 L Calcium 8.3 L Magnesium 1.7 Total Bilirubin 0.5 AST 33 ALT 20 Alkaline Phosphatase 54 Troponin I High Sens 11.1 Total Protein 6.9 Albumin 3.2 L Globulin 3.7 Albumin/Globulin Ratio 0.9 TSH 2.523 Urine Color Dark Yellow Urine Appearance Turbid A Urine pH 5.5 Ur Specific [place] 1.018 Urine Protein 2+ H Urine Glucose (UA) Negative Urine Ketones Trace H Urine Blood 2+ H Urine Nitrite Negative Urine Bilirubin Negative Urine Urobilinogen Negative Ur Leukocyte Esterase 3+ H Urine WBC (Auto) >50 H Urine RBC (Auto) 0-2 U Hyaline Cast (Auto) >20 H U Epithel Cells (Auto) 6-10 H Urine Bacteria (Auto) None Seen Urine Mucus Present A Urine Osmolality 307 L Ur Random Sodium 57
[2024-01-17] MEDS: SODIUM CHLORIDE 1 GM TABLET PO STA (10:50)
[2024-01-17] MEDS: PLASMA-LYTE A 500 ML IV ONE (10:50)
--- NOTE | 2024-01-17 10:53 | Urology Progress Note ---
Date of Service January 17, 2024 Assessment & Plan (1) Pelvic mass: (2) Acute hyponatremia: Plan 78yo F admitted with hyponatremia - Afebrile with stable vitals - Labs today show Na 123, WBC 10.55, Hgb 10.3, Creatinine 1.60 - Urine culture pending - She is on Ceftriaxone - The patient is tentatively scheduled today for TURBT and possible left stent placement with Dr. Johnson - Performance of patient's procedure will be dependent on patient's sodium levels and anesthesia clearance - Would recommend keeping the patient n.p.o. for the present time in the event she can undergo her planned procedure later today - Urology will follow along Admission and Anticipated Discharge Date Admission Date: January 16, 2024 Supervising Physician Co-Signing Physician Notes will plan to keep her on the OR schedule today to attempt to obtain a tissue diagnosis her Na levels are concerning and given her relatively dehydration recently, I consider a paraneoplastic process/SIADH on the differential list of possible causes Subjective Pt seen at bedside this AM. Awake and resting in bed on arrival. No acute distress. She had juice around 7AM. Review of Systems Constitutional: as per Subjective / HPI Genitourinary: as per Subjective / HPI Physical Exam Constitutional: no acute distress Respiratory: no respiratory distress and no labored breathing Musculoskeletal: Head/Neck/Chest: normocephalic Neurologic: moves all extremities and awake Psychiatric: A+Ox3, euthymic affect Results & Data Vital Signs (Past 12 Hours) Vital Signs Temp Pulse Pulse Resp BP BP Pulse Ox 01/17/24 09:00 73 01/17/24 07:27 36.6 C 81 18 110/58 L 94 01/17/24 03:49 36.4 C L 74 18 95/58 L 96 01/16/24 23:51 87 O2 Del Method 01/17/24 09:00 01/17/24 07:27 Room Air 01/17/24 03:49 Room Air 01/16/24 23:51 PG Care Time/CCT Total # of Minutes Spent Total Time Spent with Patient: Total time spent is greater than 50% in coordination of care (as documented) at patient's floor/unit and/or counseling patient: Coding Level of Care Code 97375 SUB INP/OBS CARE 2/35MIN Diagnoses Pelvic mass R19.00 Acute hyponatremia E87.1
--- NOTE | 2024-01-17 11:52 | Hospitalist Progress Note ---
Date of Service January 17, 2024 Assessment & Plan (1) Acute hyponatremia: Plan: -Na+ on admission 122, now 123 -hypochloremic hyponatremia with urine osm 307 and serum osm 259, possible SIADH -fluid restriction to 1500, fluids on hold -nephrology consulted -f/u repeat BMP (2) Pelvic mass: Plan: -recently found on CT 01/08 -Urology planning tissue biopsy and left ureteral stent -pain control -NPO (3) UTI (urinary tract infection): Plan: -rocephin -f/u urine C&S (4) Ureteral obstruction, left: Plan: -2nd to pelvic mass -urology following (5) Diabetes mellitus type 2 in nonobese: Plan: - Accuchecks ac and hs Plan -awaiting correcting of Na+ prior to pelvic mass biopsy and left ureteral stent placement. Admission and Anticipated Discharge Date Admission Date: January 16, 2024 Subjective Pt seen and examined resting comfortably in bed. No complaints at this time, awaiting possible urology procedure if Na+ improves. Review of Systems Review of Systems: CONST: Negative for fever, body aches and chills. HENT: Negative for neck pain/stiffness, headache, congestion, sore throat, swelling. EYES: Negative for discharge/pain or vision changes. RESP: Negative for cough/hemoptysis and shortness of breath. CV: Negative chest pain, difficulty breathing, palpitations. ABD: Negative pain, nausea, vomiting. : Negative increase frequency, dysuria, blood in urine or stool. MUSC: Negative for muscle aches, edema. SKIN: Negative rash, lesions/sores. NEURO: Negative headache, dizziness, weakness. Physical Exam Physical Exam: GENERAL APPEARANCE NAD, activity normal for age, well developed/ well nourished, no cyanosis, pallor, or diaphoresis. EYES lids/conjunctiva normal. EARS/NOSE/THROAT Mucous membranes moist, nares normal, lips/teeth normal uvula midline without oral pharyngeal erythema, exudate or swelling TMs normal bilaterally. No lymphangitis/lymphedema. HEAD/NECK normocephalic atraumatic, no facial trauma, neck is supple. RESPIRATORY respiratory effort normal, speaks in full sentences, no tripod pos ition, no accessory muscle use. Lungs clear to auscultation without rhonchi, wheezes, rales CARDIAC Regular rate and rhythm, no edema. ABDOMINAL Soft, ND/NT. No evidence of fluid wave. No pulsatile masses on exam, rebound tenderness, Landrum sign or pain over Mcburney's point. MUSCLES/EXTREMITIES No abnormal range of motion, no swelling. SKIN Warm, pink and dry. No rashes, dermatoses, petechiae or lesions. NEUROLOGICAL Speech is clear and appropriate. Normal level of consciousness. Gait and coordination are normal. 5/5 strength in all extremities. PSYCH Normal mood and affect. Judgement/competence is appropriate Results & Data Results & Data Vital Signs (Past 12 Hours) Vital Signs Temp Pulse Pulse Resp BP BP Pulse Ox 01/17/24 11:05 37.1 C 83 17 120/67 95 01/17/24 09:00 73 01/17/24 07:27 36.6 C 81 18 110/58 L 94 01/17/24 03:49 36.4 C L 74 18 95/58 L 96 01/16/24 23:51 87 O2 Del Method 01/17/24 11:05 Room Air 01/17/24 09:00 01/17/24 07:27 Room Air 01/17/24 03:49 Room Air 01/16/24 23:51 PG Care Time/CCT Total # of Minutes Spent Total Time Spent with Patient: Total time spent is greater than 50% in coordination of care (as documented) at patient's floor/unit and/or counseling patient: Coding Level of Care Code 34602 SUB INP/OBS CARE 2/35MIN Diagnoses Acute hyponatremia E87.1 Pelvic mass R19.00 UTI (urinary tract infection) N39.0 Ureteral obstruction, left N13.5 Diabetes mellitus type 2 in nonobese E11.9
[2024-01-17] MEDS: SODIUM CHLORIDE 0.9% 500 ML IV SCH (12:00)
[2024-01-17 12:26] LABS: BUN Creatinine Ratio 17.4 (10-20); Calcium 7.5 mg/dl (8.6-10.3); Creatinine Clr Calc Pharmacy 33.4 ml/min
[2024-01-17] MEDS: SCOPOLAMINE 1 MG/72 HR TDSY PATCH TD ONE (12:29)
--- NOTE | 2024-01-17 12:43 | History & Physical Bridge Note ---
Date of Service January 17, 2024 History & Physical Bridge Note I have examined the patient, reviewed the History & Physical and in the interval since the performance of the History & Physical I have noted the following changes of clinical significance: no changes noted
--- NOTE | 2024-01-17 13:55 | Operative Report ---
PG Post Operative Report Pre & Post Diagnosis Operation Date: 01/17/24 12:35 Pre-Op Diagnosis: Pelvic mass, Acute hyponatremia Post-Op Diagnosis: Pelvic mass, Acute hyponatremia I identified the patient and participated in the time-out.: Yes Procedure Operation Date: 01/17/24 12:35 <No data on this case meets the specified criteria> Surgeon Harsh Johnson MD Securities Underwriter none Estimated Blood Loss 0 Findings Consistent with Post-Op Diagnosis Specimens 1. Vaginal fibrinous exudate 2. Vaginal wall biopsy Description of Procedure The patient was identified in the preoperative holding area, appropriate informed consents were reviewed and completed and the patient was transferred to the operative suite. Upon arrival, appropriate antibiotics and anesthesia were administered and the patient was placed in dorsal lithotomy position and prepped and draped in sterile fashion. To begin the case I passed a 21 [place]raini cystoscope with 30 degree lens. Inspection revealed a relatively healthy appearing bladder without any mass effect or mucosal changes. Left and right ureteral orifices were identified in orthotopic position. She has some catheter related cystitis on the upper wall from self catheterizations but otherwise no abnormalities. Certainly no evidence of TCC. Full inspection was conducted with both a 30 and 70 degree lens. Of note, this patient had prior radiation therapy for cervical cancer 41 years ago and on preoperative imaging appears to have some development of a mass posterior to the bladder and impacting the left trigone and distal left ureter. I anticipated seeing some abnormality of the bladder wall, however inspection failed to confirm this. Following my full inspection I turned my attention to the left UO and cannulated it with a sensor wire which advanced the kidney without difficulty. I then placed a 7 [place]raini by 26 cm silicone catheter. There was good curl in the kidney as well as the bladder. Given that her initial hope was to obtain tissue for potential diagnosis and guidance of future treatments, I elected to perform a vaginoscopy with the cystoscope. Inspection revealed a white fibrinous material filling the upper aspect of the vaginal vault. I attempted to grasp some of this material with a grasping forcep, however it was quite adherent to the wall and did not want to be removed easily. A cash applications representative sample was collected and passed off the table. More importantly, clearing this area allowed exposure of some of the underlying tissue. Although I cannot definitively say that it was grossly abnormal in appearance, I did attempt to perform tube vaginal wall biopsies of the base of the fibrinous area. These were passed off the table as a separate specimen. Hemostasis was excellent. I elected to conclude the case at that time and reversed from anesthesia. If we do not have tissue diagnosis from the procedure today, I think we would likely have to engage either gynecology or interventional radiology to pursue biopsy of another area. I attest to the content of the Intraoperative Record and any orders documented therein. Any exceptions are noted below.
[2024-01-17] MEDS: CHECK SCOPOLAMINE PATCH PLACEMENT SCH (15:45)
[2024-01-17] MEDS: HYDROmorphone INJ 0.5 MG/0.5 ML SYR IV PRN (15:55)
[2024-01-17 16:43] LABS: BUN Creatinine Ratio 14.7 (10-20); Calcium 7.5 mg/dl (8.6-10.3); Creatinine Clr Calc Pharmacy 34.2 ml/min; Potassium 3.8 mmol/L (3.5-5.1)
[2024-01-17] MEDS: SODIUM CHLORIDE 1 GM TABLET PO ONE (17:46)
[2024-01-18 08:08] LABS: Albumin Level 2.9 gm/dl (3.4-5.0); BUN Creatinine Ratio 13.9 (10-20); Calcium 7.7 mg/dl (8.6-10.3); Creatinine Clr Calc Pharmacy 40.8 ml/min; Phosphorus 2.2 mg/dl (2.5-4.9); Potassium 4.3 mmol/L (3.5-5.1)
--- NOTE | 2024-01-18 08:33 | Hospitalist Progress Note ---
Date of Service January 18, 2024 Assessment & Plan (1) Pelvic mass: Plan: -recently found on CT 01/08-> history of cervical cancer 41 years ago s/p radiation -cystoscopy 01/16 did not reveal overt bladder mass and his recommendation was to obtain additional samples in an alternative manner pending Transvaginal US< possible gyne consult [facility] some discussion from family that this may have been infection, requests to keep rocephin (2) UTI (urinary tract infection): Plan: -rocephin, inital culture was < 1000 colonies (3) Ureteral obstruction, left: Plan: -2nd to pelvic mass -urology following renal function stable (4) Diabetes mellitus type 2 in nonobese: Plan: - Accu checks ac and hs family requests to go home on insulin Admission and Anticipated Discharge Date Admission Date: January 16, 2024 Subjective pt has no complaints is ambulatory, st cath by nurses, decided on [facility] Physical Exam Physical Exam: pt is without distress cardiac is regular lungs are clear abd is soft and non tender Results & Data Results & Data Vital Signs (Past 12 Hours) Vital Signs Temp Pulse Pulse Resp BP Pulse Ox O2 Del Method 01/18/24 07:25 98.8 F 80 17 111/64 95 Room Air 01/18/24 03:37 98.4 F 82 21 119/61 94 Room Air 01/17/24 23:26 79 01/17/24 22:34 98.2 F 81 17 117/64 96 Room Air Laboratory Results reviewed chemistry spoke to family on phone spoke to [facility] PG Care Time/CCT Total # of Minutes Spent Total Time Spent with Patient: Total time spent is greater than 50% in coordination of care (as documented) at patient's floor/unit and/or counseling patient: Coding Level of Care Code 70780 SUB INP/OBS CARE 3/50MIN Diagnoses Pelvic mass R19.00 UTI (urinary tract infection) N39.0 Ureteral obstruction, left N13.5 Diabetes mellitus type 2 in nonobese E11.9
--- NOTE | 2024-01-18 09:46 | Nephrology Progress Note ---
Date of Service January 18, 2024 Assessment & Plan (1) IVONNE (acute kidney injury): (2) Hyponatremia: (3) Ureteral obstruction, left: (4) Pelvic mass: Plan Rosaura is a 78 year old female who presented with an incidental finding of hyponatremia on a workup for a bladder mass. Hyponatremia attributed to a combination of volume depletion, hyperglycemia, and low dietary intake. Hyponatremia - Improved - Volume status acceptable - Normal kidney function - Encourage oral solute intake IVONNE - Improved - Attributed to intravascular volume depletion Pelvic mass - Pathology pending Admission and Anticipated Discharge Date Admission Date: January 16, 2024 Subjective No acute events overnight. Rosaura feels well this AM. She reports good appetite. No fluid retention or edema. Lightheadedness has improved. Tolerated cystoscopy/vaginoscopy well. Review of Systems Review of Systems: All systems reviewed & are unremarkable except as noted in HPI & below Physical Exam Constitutional: well developed; no acute distress Eyes: + anicteric sclerae; no conjunctival abn ormality ENMT: Mouth: + dry oral mucous membranes Neck: normal visual inspection and trachea midline Respiratory: normal respiratory effort Auscultation: lungs clear to auscultation bilaterally Cardiovascular: Rate/Rhythm: regular rate Heart Sounds: normal S1 and normal S2 Extremities: no edema Musculoskeletal: Extremities: no cyanosis and no clubbing Skin: normal turgor; no jaundice Neurologic: Motor/Sensory: no tremor and no asterixis Psychiatric: Orientation: alert and oriented x 3 Results & Data Vital Signs (Past 12 Hours) Vital Signs Temp Pulse Pulse Resp BP Pulse Ox O2 Del Method 01/18/24 08:00 86 01/18/24 07:25 37.1 C 80 17 111/64 95 Room Air 01/18/24 03:37 36.9 C 82 21 119/61 94 Room Air 01/17/24 23:26 79 01/17/24 22:34 36.8 C 81 17 117/64 96 Room Air Laboratory Results Laboratory Results - last 24 hr 01/17/24 01/17/24 01/17/24 11:19 11:57 14:04 Sodium 125 L Potassium 4.0 Chloride 94 L Carbon Dioxide 23 Anion Gap 8 BUN 23 Creatinine 1.32 H Est Cr Clr Drug Dosing 33.4 eGFR 41.58 BUN/Creatinine Ratio 17.4 Glucose 94 POC Glucose 101 H 94 Calcium 7.5 L Phosphorus Albumin 01/17/24 01/17/24 01/17/24 15:58 16:21 20:27 Sodium 127 L Potassium 3.8 Chloride 97 L Carbon Dioxide 22 Anion Gap 8 BUN 19 Creatinine 1.29 H Est Cr Clr Drug Dosing 34.2 eGFR 42.75 BUN/Creatinine Ratio 14.7 Glucose 111 H POC Glucose 117 H 142 H Calcium 7.5 L Phosphorus Albumin 01/18/24 01/18/24 07:03 07:33 Sodium 134 L Potassium 4.3 Chloride 100 Carbon Dioxide 26 Anion Gap 8 BUN 15 Creatinine 1.08 Est Cr Clr Drug Dosing 40.8 eGFR 52.90 BUN/Creatinine Ratio 13.9 Glucose 227 H POC Glucose 229 H Calcium 7.7 L Phosphorus 2.2 L Albumin 2.9 L PG Care Time/CCT Total # of Minutes Spent Total Time Spent with Patient: Total time spent is greater than 50% in coordination of care (as documented) at patient's floor/unit and/or counseling patient: Coding Level of Care Code 96344 SUB INP/OBS CARE 3/50MIN Diagnoses IVONNE (acute kidney injury) N17.9 Hyponatremia E87.1 Ureteral obstruction, left N13.5 Pelvic mass R19.00
--- NOTE | 2024-01-18 11:24 | Electrocardiogram Report ---
Test Reason : Blood Pressure : */* mmHG Vent. Rate : 88 BPM Atrial Rate : 88 BPM P-R Int : 126 ms QRS Dur : 90 ms QT Int : 372 ms P-R-T Axes : 42 -1 34 degrees QTcB Int : 450 ms Sinus rhythm with occasional Premature ventricular complexes Otherwise normal ECG When compared with ECG of 16-Jan-2024 11:45, (unconfirmed) Premature ventricular complexes are now Present Confirmed by Justyn Beyer ([id number]) on 01/18/2024 11:23:34 AM Referred By: Confirmed By: Justyn Beyer
[2024-01-18] MEDS ORDERED: SODIUM PHOSPHATE 3 MMOL/1 ML INFUSION IV STA (15:35)
[2024-01-18] MEDS: SODIUM PHOSPHATE 15 MMOL in SODIUM CHLORIDE 0.9% 250 ML IV ONE (16:24)
--- NOTE | 2024-01-19 01:19 | Ultrasound Report ---
Exam(s): US PELVIS EXAM: US Pelvis Transabdominal, Complete CLINICAL HISTORY: Reason for exam: eval pelvic mass. TECHNIQUE: Real-time complete transabdominal pelvic ultrasound with image documentation. The patient refused endovaginal scanning. COMPARISON: No relevant prior studies available. FINDINGS: Uterus/cervix: The uterus is small at 5.5 x 4.8 x 2.0 cm. The endometrial stripe measures approximately 2 mm.. No myometrial mass. Right ovary: 3.0 x 1.6 x 2.4 cm cyst in the region of the right ovary. A small amount of blood flow is seen along the periphery. Left ovary: Not visualized due to overlying gas. Free fluid: No free fluid. Bladder: Unremarkable as visualized. Wall is normal thickness for degree of distention. Other: There appears to be a complex fluid collection near the region of the cervix measuring up to 6.6 x 5.8 x 2.1 cm. IMPRESSION: Complex lower pelvic fluid collection near the cervix which may represent an abscess. This appears larger than a CT scan of January 09, 2024. Electronically signed by: Royer Haji MD 01/19/24 01:17 AM
[2024-01-19 07:46] LABS: Hematocrit (blood only) 30.4 % (37.0-47.0); Hemoglobin 9.8 g/dl (12.0-16.0); Mean Corpuscular Hemoglobin 28.9 pg (25.0-34.0); Mean Corpuscular Hgb Conc 32.2 g/dL (32.0-36.0); Mean Corpuscular Volume 89.7 fL (80.0-100.0); Mean Platelet Volume 9.3 fL (9.4-12.4); Platelet Count 377 K/uL (130-400); RDW Coefficient of Variation 14.7 % (11.5-14.5); RDW Standard Deviation 47.7 fL (36.4-46.3); Red Blood Count 3.39 M/uL (4.20-5.40); White Blood Count 9.42 K/ul (4.8-10.8)
[2024-01-19 08:12] LABS: BUN Creatinine Ratio 8.6 (10-20); Creatinine Clr Calc Pharmacy 47.4 ml/min; Potassium 4.4 mmol/L (3.5-5.1)
--- NOTE | 2024-01-19 08:43 | Hospitalist Progress Note ---
Date of Service January 19, 2024 Assessment & Plan (1) Pelvic mass: Plan: -recently found on CT 01/08-> history of cervical cancer 41 years ago s/p radiation -cystoscopy 01/16 did not reveal overt bladder mass and his recommendation was to obtain additional samples in an alternative manner Transvaginal US< complex fluid collection seen on imaging gyne feels not entirely consistent with abscess, not tender, also not consistent with recurrent cervical ca, recommend gye onc follow up, [facility] ask for [facility] referral consider discharge on po antibiotic once blood glucose in control, will need follow up with bracer onc and family wants to establish a local pcp (2) Ureteral obstruction, left: Plan: -2nd to pelvic mass -urology following, after cysto did not recommend stents aicha on ckd 3 resolved renal function stable SIADH, hyponatremia resolved with fluid collection, release fluid restriction (3) Diabetes mellitus type 2 in nonobese: Plan: - poor contorol aic is 9.9 Accu checks ac and hs family requests to go home on insulin, rug inspector is seeing will have home regimen calculated (4) UTI (urinary tract infection): Plan: -rocephin, inital culture was < 1000 colonies urine infection ruled out Admission and Anticipated Discharge Date Admission Date: January 16, 2024 Subjective No acute events overnight. Feeling better overall.. Appetite is good. Denies orthostatic lightheadedness able to walk around room updated family Physical Exam Physical Exam: pt is without distress cardiac is regular lungs are clear abd is soft and non tender Results & Data Results & Data Vital Signs (Past 12 Hours) Vital Signs Temp Pulse Pulse Resp BP Pulse Ox O2 Del Method 01/19/24 06:51 98.2 F 77 18 125/55 L 95 Room Air 01/19/24 03:00 99.0 F 78 20 111/54 L 92 Room Air 01/18/24 22:56 98.2 F 76 20 139/59 L 95 Room Air 01/18/24 22:32 77 Laboratory Results review cbc review chemistry PG Care Time/CCT Total # of Minutes Spent Total Time Spent with Patient: Total time spent is greater than 50% in coordination of care (as documented) at patient's floor/unit and/or counseling patient: Coding Level of Care Code 36400 SUB INP/OBS CARE 3/50MIN Diagnoses Pelvic mass R19.00 Ureteral obstruction, left N13.5 Diabetes mellitus type 2 in nonobese E11.9 UTI (urinary tract infection) N39.0
[2024-01-19] MEDS: 4.5GM X1 IV STA (08:49)
--- NOTE | 2024-01-19 08:52 | Urology Progress Note ---
<Statement entered by Jordi Duffy MD - 01/19/24 12:27> I have discussed Ms. Pino's case with MACRINA Garcia and agree with the above documentation. Cystoscopy did not identify any abnormalities within the bladder. Vaginoscopy demonstrated necrotic tissue. Further workup pending with CREDIT CONTROL OFFICER. She can resume CIC. No plan for additional urologic intervention at this point. Please call with any questions or concerns -Jordi Duffy MD. Date of Service January 19, 2024 Assessment & Plan (1) Pelvic mass: Plan 78yo F admitted with hyponatremia on preop labs. Recent pelvic mass found on CT 01/08-this showed the patient had a left-sided urinary obstruction secondary to encasement of the distal left ureter by soft tissue mass. - Pt s/p day 2 cystoscopy/vaginoscopy with left stent placement with Dr. Johnson. No bladder masses were found, healthy appearing bladder. He did obtain biopsies during vaginoscopy -Pathology revealed necrotic tissue and inflamed patient -Gynecology has been consulted for further evaluation - Afebrile, hemodynamically stable - Labs today show Na 135, WBC 9.42, Hgb 9.8, Creatinine 0.93 - Urine culture showed no growth - She is on Zosyn - Urology will s/o. Please contact us for any further questions or concerns. - We can arrange outpatient follow-up once discharged. Admission and Anticipated Discharge Date Admission Date: January 16, 2024 Subjective Pt seen at bedside this AM. Awake and resting in bed on arrival. No acute distress. Denies pain, acute urological concerns History of CIC at home Currently being straight cathed in hospital Review of Systems Constitutional: as per Subjective / HPI Genitourinary: as per Subjective / HPI Physical Exam Constitutional: well developed and well nourished; no acute distress Respiratory: normal respiratory effort and able to speak in complete sentences Musculoskeletal: Extremities: extremities normal to inspection Psychiatric: Orientation: alert and oriented x 3 Results & Data Vital Signs (Past 12 Hours) Vital Signs Temp Pulse Pulse Resp BP Pulse Ox O2 Del Method 01/19/24 06:51 36.8 C 77 18 125/55 L 95 Room Air 01/19/24 03:00 37.2 C 78 20 111/54 L 92 Room Air 01/18/24 22:56 36.8 C 76 20 139/59 L 95 Room Air 01/18/24 22:32 77 PG Care Time/CCT Total # of Minutes Spent Total Time Spent with Patient: Total time spent is greater than 50% in coordination of care (as documented) at patient's floor/unit and/or counseling patient: Coding Level of Care Code 78076 SUB INP/OBS CARE 25MIN Diagnoses Pelvic mass R19.00
[2024-01-19] MEDS: POLYETHYLENE (MIRALAX) 17 GM PACK PO PRN (08:55)
--- NOTE | 2024-01-19 10:25 | OB/GYN Consultation ---
Date of Consultation January 19, 2024 Assessment & Plan (1) Pelvic mass: (2) History of cervical cancer: Plan Discussed with patient her history and findings on exam and imaging. Description of paracervical mass by CT more soft tissue mass like but imaging by u/s, looks more like collection. Of note, based on dimensions and imaging by u/s of this area, more likely a collection of fluid (6x6x2), which is not how cervical cancer would spread, it would be more mass like and firm and so far I can't appreciate that on bedside exam. She has been on abx and i see wbc has been driven down to normal but if was abscess not only would i suspect iv abx would not have hit it for trt, but if it did, it is really no different in size which is strange and would suspect until drained she would be tender and she is not. Obviously some type of mass that needs further investigation and from school crossing guard standpoint best done with school crossing guard oncology as consult. She notes her original trt for cx cancer was in [place] but that was 40yrs ago. She can consider consult with [facility] school crossing guard onc and we can facilitate referral if primary team needs us to do so. I wrote down my name and referral options for her to review with her family. I offered to speak to her family but she declined. History of Present Illness Reason for Consultation: vaginal lesion Requesting Physician: Dr. Lay Attending Physician: Anastacio Lay MD History of Present Illness 78yo with cc of being asked for school crossing guard consult by Dr. Lay after vaginal lesion noted on eua and collection seen paracervical on imaging. Patient had cervical cancer 40yrs ago treated with radiation. Up until 2-3 yrs ago was seeing her school crossing guard regularly in [place], [place]. She also has seen Urogyn at [facility] in 2021. Both of whom told her that her vagina is scarred and foreshortened due to her radiation. They cannot see her cx on exam is what she has been told. She notes she was having cold sx for about a week and then on and off for 10d prior to her admission she has having left sided pelvic and groin pain. Could be sharp, came and went. She went to ER more near where she lives and had a CT scan and saw urology near her and they felt there was some type of mass blocking her left ureter and she was considering surgery with them. Upon discussion with her son and daughter in law, they wanted [place] [facility] [place] and [place]. She came to her son's home in [place] this past weekend for a planned apt with urology on tuesday. She saw urology and had planned surgery for but when she had PATs on tuesday, her sodium was too low and she was called in for admission. On that tuesday she did say she had some n/v. On she did have the urologic surgery and of note a stent was placed and since that time has had resolution of her left sided pain. At that time, on , bx taken of exudate and lesion of vagina by urology that returned as inflammation. She feels well today. No fever. No pain. She does say she is on iv abx. She does CIC at home and has incontinence. She thinks is close to being ready for next cath. She feels her iv abx are for uti, but i see on 01/15 straight cath culture no infection noted. Imaging in system reviewed and pelvic u/s imaging reviewed. She does have right ovarian cyst that is small with no internal vascularity. There is description of [id number] collection near cx on u/s which correlates to what is described as a soft tissue mass in the CT scan from outside hospital. Same dimensions virtually. OBGYNH: x 1, regular school crossing guard care up until 2-3 yrs ago, no concern for recurrence. did not have any recent imaging ie. last 10yrs by u/s for any reason she can recall with that provider. he retired. not sa for 20yrs. prior to that was sa for about 20yrs after her radiation trt for cervical cancer. All Active Problems (Updated 01/17/24 @ 12:23 by Lamin Rothman DO) Hyponatremia (Medical) E87.1 - Hypo-osmolality and hyponatremia (ICD-10) IVONNE (acute kidney injury) (Medical) N17.9 - Acute kidney failure, unspecified (ICD-10) Diabetes mellitus type 2 in nonobese (Medical) E11.9 - Type 2 diabetes mellitus without complications (ICD-10) Ureteral obstruction, left (Medical) N13.5 - Crossing vessel and stricture of ureter without hydronephrosis (ICD- 10) UTI (urinary tract infection) (Medical) N39.0 - Urinary tract infection, site not specified (ICD-10) Pelvic mass (Medical) R19.00 - Intra-abdominal and pelvic swelling, mass and lump, unspecified site (ICD-10) Mass of bladder (Acute Medical) N32.89 - Other specified disorders of bladder (ICD-10) Weakness (Acute Medical) R53.1 - Weakness (ICD-10) Gross hematuria (Medical) R31.0 - Gross hematuria (ICD-10) Hypertension (Medical) I10 - Essential (primary) hypertension (ICD-10 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.9 - Female genital prolapse, unspecified (ICD-10) Acute urinary retention (Medical) R33.8 - Other retention of urine (ICD-10) Frequent UTI (Medical) N39.0 - Urinary tract infection, site not specified (ICD-10) Allergies Allergy/AdvReac Type Severity Reaction Status Date / Time No Known Allergies Allergy Verified 01/16/24 11:49 Home Medications Medication Instructions Recorded Confirmed Type diltiazem HCl 180 mg 180 mg PO QAM 06/23/21 01/16/24 History capsule,extended release 24 hr (Cardizem CD) glipizide 10 mg tablet 10 mg PO QAM 06/23/21 01/16/24 History lisinopril 20 mg tablet 20 mg PO QAM 06/23/21 01/16/24 History magnesium oxide 400 mg PO BID 06/23/21 01/16/24 History metformin 500 mg tablet 1,000 mg PO BID 06/23/21 01/16/24 History pantoprazole 40 mg tablet,delayed 40 mg PO QAM 06/23/21 01/16/24 History release (Protonix) sitagliptin phosphate 100 mg 100 mg PO QAM 06/23/21 01/16/24 History tablet (Januvia) cinnamon bark 500 mg capsule 1,000 mg PO QAM 07/14/21 01/16/24 History (Cinnamon) multivitamin 1 cap PO QAM 07/14/21 01/16/24 History prednisone 2 mg tablet,delayed 2 mg PO QAM 07/14/21 01/16/24 History release fluconazole 200 mg tablet 200 mg PO DAILY 01/16/24 01/16/24 History gabapentin 400 mg capsule 400 mg PO TID 01/16/24 01/16/24 History hydrocodone bitartrate 10 mg 10 mg PO Q4H PRN Pain 01/16/24 01/16/24 History capsule, oral only, extended rel 12 hr pravastatin 20 mg tablet 20 mg PO DAILY 01/16/24 01/16/24 History semaglutide 0.25 mg or 0.5 mg (2 0.5 mg subcut Q7D 01/16/24 01/16/24 History mg/3 mL) subcutaneous pen injector (Ozempic) Patient History Medical History Bladder mass Osteoporosis Gross hematuria GERD (gastroesophageal reflux disease) Sleep apnea no device Family history of reaction to anesthesia SISTER - N/V Nausea and vomiting after administration of anesthetic agent Frequent UTI as of 01/16/24, currently on abx HTN (hypertension) Diabetes NIDDM Per patient's daughter in law- patient went off DM meds five days ago- as of 01/15/24- glucose was in 400s- patient restarted diabetes meds 01/15/24 (except Ozempic) Cervical cancer hx 1982, hx radiation , and 2 nicole implants Surgical History S/P cystoscopy with ureteral stent placement w/ureteroscopy, bilat. RP, urethral dilation, 2021 History of endoscopy History of colonoscopy History of surgery nicole implants for hx cervical cancer History of cholecystectomy Family History Grandmother Family history of diabetes mellitus Mother Pre-diabetes Social History Smoking Status: Never smoker Second Hand Exposure: No; Do You Dip or Chew Tobacco: No; Hx Alcohol Use: No Hx Substance Use: No Preferred Language: Azerbaijani Communication Ability: Effective Publishing Systems Analyst Required: No Beliefs That Will Affect Care: None marital status: / Current Living Situation: Alone Current Living Situation Comment: home alone current occupational status: retired Feels Safe at Home: Yes Assistive Devices: Cane Review of Systems Constitutional: as per Subjective / HPI Physical Exam Constitutional: WD/WN, vitals as above Gastrointestinal (Abdomen): Percussion/Palpation: abdomen soft; abdomen nontender and no guarding Neurologic: grossly normal Psychiatric: A+Ox3, euthymic affect Genitourinary: normal external appearance (atrophy) Speculum/Bimanual Exam: normal bimanual exam (cannot palpate cx, some adhesions at cuff palpated. no lesion or mass palp) and normal vaginal palpation; no abnormal vaginal discharge (not noted on glove), no vaginal tenderness, no vaginal mass, uterus not enlarged, uterus nontender and no adnexal mass (mobile pelvis) Results & Data Vital Signs (Past 12 Hours) Vital Signs Temp Pulse Pulse Resp BP Pulse Ox O2 Del Method 01/19/24 06:51 98.2 F 77 18 125/55 L 95 Room Air 01/19/24 03:00 99.0 F 78 20 111/54 L 92 Room Air 01/18/24 22:56 98.2 F 76 20 139/59 L 95 Room Air 01/18/24 22:32 77 PG Care Time/CCT Total # of Minutes Spent Total Time Spent with Patient: Total time spent is greater than 50% in coordination of care (as documented) at patient's floor/unit and/or counseling patient: Coding Level of Care Code 24610 INT INP/OBS CARE 3/75MIN Diagnoses Pelvic mass R19.00 History of cervical cancer Z85.41
--- NOTE | 2024-01-19 10:39 | Nephrology Progress Note ---
Date of Service January 19, 2024 Assessment & Plan (1) IVONNE (acute kidney injury): (2) Hyponatremia: (3) Ureteral obstruction, left: (4) Pelvic mass: Plan Rosaura is a 78 year old female who presented with an incidental finding of hyponatremia on a workup for a bladder mass. Hyponatremia attributed to a combination of volume depletion, hyperglycemia, and low dietary intake. Sodium improved with isotonic fluids and oral NaCl. Serum sodium acceptable. No free water restriction. No additional recommendations at this time. However, outpatient follow up to monitor serum sodium is encouraged. Hyponatremia - Volume status acceptable - Normal kidney function - Encourage oral solute intake - Follow up in the nephrology clinic within 1-2 weeks of hospital discharge IVONNE - Improved - Attributed to intravascular volume depletion Pelvic mass - Pathology nondiagnostic - Pelvic/vaginal US and bulk sealer operator consult pending Admission and Anticipated Discharge Date Admission Date: January 16, 2024 Subjective No acute events overnight. No complaints this AM. Feeling better overall. No fluid retention or edema. Appetite is good. Denies orthostatic lightheadedness. Review of Systems Review of Systems: All systems reviewed & are unremarkable except as noted in HPI & below Physical Exam Constitutional: well developed; no acute distress Eyes: + anicteric sclerae ENMT: Mouth: oral mucous membranes not dry Neck: normal visual inspection and trachea midline Respiratory: normal respiratory effort Cardiovascular: Rate/Rhythm: regular rate Extremities: no edema Skin: no jaundice Neurologic: Motor/Sensory: no tremor and no asterixis Psychiatric: Orientation: alert and oriented x 3 Results & Data Vital Signs (Past 12 Hours) Vital Signs Temp Pulse Resp BP Pulse Ox O2 Del Method 01/19/24 06:51 36.8 C 77 18 125/55 L 95 Room Air 01/19/24 03:00 37.2 C 78 20 111/54 L 92 Room Air 01/18/24 22:56 36.8 C 76 20 139/59 L 95 Room Air Laboratory Results Laboratory Results - last 24 hr 01/18/24 01/18/24 01/18/24 11:32 16:22 19:51 WBC RBC Hgb Hct MCV MCH MCHC RDW Std Deviation RDW Coeff of Anders Plt Count MPV Sodium Potassium Chloride Carbon Dioxide Anion Gap BUN Creatinine Est Cr Clr Drug Dosing eGFR BUN/Creatinine Ratio Glucose POC Glucose 285 H 255 H 267 H Calcium 01/19/24 01/19/24 06:50 07:00 WBC 9.42 RBC 3.39 L Hgb 9.8 L Hct 30.4 L MCV 89.7 MCH 28.9 MCHC 32.2 RDW Std Deviation 47.7 H RDW Coeff of Anders 14.7 H Plt Count 377 MPV 9.3 L Sodium 135 L Potassium 4.4 Chloride 100 Carbon Dioxide 29 Anion Gap 6 BUN 8 Creatinine 0.93 Est Cr Clr Drug Dosing 47.4 eGFR 63.30 BUN/Creatinine Ratio 8.6 L Glucose 216 H POC Glucose 213 H Calcium 8.0 L PG Care Time/CCT Total # of Minutes Spent Total Time Spent with Patient: Total time spent is greater than 50% in coordination of care (as documented) at patient's floor/unit and/or counseling patient: Coding Level of Care Code 24816 SUB INP/OBS CARE 2/35MIN Diagnoses IVONNE (acute kidney injury) N17.9 Hyponatremia E87.1 Ureteral obstruction, left N13.5 Pelvic mass R19.00
[2024-01-19] MEDS ORDERED: CARBOHYDRATES FOR HYPOGLYCEMIA PO PRN (12:01)
[2024-01-19] MEDS ORDERED: GLUCOSE 40% GEL 15 GM TUBE PO PRN (12:01)
[2024-01-19] MEDS ORDERED: DEXTROSE 50% 50 ML SYRINGE IV PRN (12:01)
[2024-01-19] MEDS ORDERED: GLUCOSE 10 TAB/TUBE PO PRN (12:01)
[2024-01-19] MEDS ORDERED: GLUCAGON FOR INJ 1 MG VIAL SQ PRN (12:01)
[2024-01-19] MEDS ORDERED: INSULIN HUMAN NPH SC SCH (12:15)
[2024-01-19] MEDS: PIPERACILLIN/TAZOBACTAM 4.5 GM/100 ML BAG IV SCH (12:33)
[2024-01-19] MEDS: NovoLIN-N (NPH) PER UNIT CHARGE SQ ONE (12:43)
[2024-01-19] MEDS ORDERED: INSULIN ASPART PER UNIT CHARGE SC SCH (16:30)
[2024-01-19] MEDS: LANTUS PER UNIT CHARGE SQ SCH (20:33)
--- NOTE | 2024-01-20 08:50 | Communication Note ---
Date of Service: January 20, 2024 spoke to pt this am. she thinks going home today. again discussed consult with screw machine tender onc and let us know if needs help facilitating will sign off.
--- NOTE | 2024-01-20 12:41 | Discharge Summary ---
Discharge Summary Date of Service January 20, 2024 Principal Dx & Hospital Course #1 = Principal Diagnosis (1) Pelvic mass: -recently found on CT 01/08-> history of cervical cancer 41 years ago s/p radiation -cystoscopy 01/16 did not reveal overt bladder mass and his recommendation was to obtain additional samples in an alternative manner Transvaginal US< complex fluid collection seen on imaging gyne feels not entirely consistent with abscess, not tender, also not consistent with recurrent cervical ca, recommend gye onc follow up, was originally seen in [facility] will ask for re referral Pathology reveals necrotic tissue. This will need further evaluation on an outpatient basis. The patient is aware (2) Ureteral obstruction, left: -2nd to pelvic mass -urology following, after cysto did not recommend stents aicha on ckd 3 resolved renal function stable SIADH, hyponatremia resolved with fluid collection, release fluid restriction (3) Diabetes mellitus type 2 in nonobese: - poor contorol aic is 9.9 Accu checks ac and hs The patient request to go home on Lantus. Ozempic and Januvia have been discontinued. (4) UTI (urinary tract infection): -rocephin, inital culture was < 1000 colonies urine infection ruled out Plan Home today, January 19. 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 The patient normally lives alone in [place] and her family reside in [place] (son and daughter in law). Reportedly, the patient has been suffering from over 3 weeks of left sided pelvic pain. The patient notes that her pain is exacerbated by certain position changes. She also notes that over the past week she has been having episodes of diarrhea, nausea, dry heaves and vomiting. She does not feel that it has worsened since the onset 3 weeks ago, however, since the onset, she finally presented to her family doctor last Tuesday for evaluation. She was referred to the ER where she lives where she underwent a CT scan as well as urine studies. She was found to have a pelvic mass that is compressing her left ureter as well as a UTI. She was ordered an antibiotic but it was not picked up and started until this past Tuesday by her family. Her family, who works at [employer], was able to make arrangements for her to be seen by [facility]. She had labs done this AM and had an appointment with Dr. Johnson who reviewed her CT and wanted to make arrangements for an elective tissue biopsy as well as a possible stent of the left ureter, however, she was found to have a sodium level of 121. Family felt that she warranted evaluation and possible admission and brought her to the ER. In her earlier labs, she was also noted to have a leukocytosis of 15.25 with neutrophilic predominance. Her creatinine is elevated 1.66 and potassium is low at 3.4. Her family notes that she has not been taking any of her medications and that she has not been eating/drinking well. She is also unsteady on her feet and they are concerned about her being a fall risk. In the ER, she was medicated with a dose of IV Zofran and received 1L of NSS and has been referred for admission to the hospital medicine service. Discharge Exam General-alert and oriented x3, no fever, no chills HEENT-head atraumatic and normocephalic, pupils equal and reactive to light, extraocular muscles intact Neck-no lymphadenopathy or thyromegaly, trachea midline Chest-clear to auscultation. No rales, wheezing or rhonchi Cardiac-regular rate and rhythm, normal S1 and S2 Abdomen-normal bowel sounds, no hepatosplenomegaly Extremities-no cyanosis, clubbing, or edema Neuro-cranial nerves II through XII intact, motor and sensory function within normal limits, strength symmetrical, no focal deficits Psych-normal affect, normal mood Discharge Plan Discharge Items Patient Disposition: Home - Self-Care Reason For Visit: HYPONATREMIA, OIBSTRUCTIVE PELVIC MASS Discharge Diagnosis: Pelvic mass, left ureteral obstruction, hyponatremia, hypokalemia, acute on chronic kidney disease stage III Activity: Resume your previous activity Non-emergency contact: Primary Care Provider and Quality Review Specialist Call non-emergency contact if: your symptoms worsen Follow-up/Referrals: Peyton Norwood CRNP [Nurse Practitioner] - 01/25/24 10:00 am (APPOINTMENT WILL BE AT [facility] [address] [address] Phone Number- [phone]) Suad Trevino CRNP [Primary Care Provider] - Diet: Carb Consistent or DM2 Addtl Attending Provider Instructions: Use Lantus insulin 10 units twice daily, at breakfast and at suppertime. Check glucose levels before each insulin injection and record on paper for PCP to review. Prescriptions have been sent to your pharmacy. The biopsy done on January 16 reveals only necrotic tissue. You will need continued outpatient follow-up for further evaluation of the pelvic mass. Pending Studies at Discharge: No Stand-Alone Forms: My [facility], Smoking Cessation Medications and DC Order Prescriptions: New insulin glargine [Lantus Solostar U-100 Insulin] 100 unit/mL (3 mL) insulin pen 10 unit subcut BID Qty: 15 0RF Continued glipizide 10 mg tablet 10 mg PO QAM metformin 500 mg tablet 1,000 mg PO BID diltiazem HCl [Cardizem CD] 180 mg capsule,extended release 24hr 180 mg PO QAM lisinopril 20 mg tablet 20 mg PO QAM pantoprazole [Protonix] 40 mg tablet,delayed release (DR/EC) 40 mg PO QAM magnesium oxide 400 mg magnesium capsule 400 mg PO BID hydrocodone bitartrate 10 mg capsule, oral only, ER 12hr 10 mg PO Q4H PRN (Reason: Pain) fluconazole 200 mg tablet 200 mg PO DAILY prednisone 2 mg Tablet,Delayed Release (Dr/Ec) 2 mg PO QAM multivitamin Capsule 1 cap PO QAM cinnamon bark [Cinnamon] 500 mg Capsule 1,000 mg PO QAM pravastatin 20 mg tablet 20 mg PO DAILY gabapentin 400 mg capsule 400 mg PO TID Discontinued Januvia 100 mg tablet 100 mg PO QAM Ozempic 0.25 mg or 0.5 mg (2 mg/3 mL) pen injector 0.5 mg subcut Q7D Patient Comments: tuesday Discharge Orders: Discharge Order (Routine); Ordered 01/20/24 Ordered By: Royer Smith Admission Data Admit Date/Time: 01/16/24 17:10 Attending Provider: Royer Smith Admit Provider: Yonatan Altamirano Primary Care Provider: Suad Trevino Other Providers: Yonatan Altamirano; Lamin Rothman; Xenia Burgos Hospital Stay Data Consultations 01/16/24 16:08 ED Decision to Admit Stat 01/16/24 19:27 Consult Urology Routine 01/17/24 07:51 Consult Nephrology Routine 01/19/24 08:09 Consult Gynecology Routine Procedures Performed Operation Date: 01/17/24 12:35 Actual Procedures p Transurethral Resection Bladder Tumor(Not Applicable) - Harsh Johnson MD s Left Ureteral Stent Placement(Left) - Harsh Johnson MD Diagnostic Imagining Performed 01/18/24 15:11 US pelvic complete Routine Pending Results Patient Have Any Pending Studies at Discharge: No Discharge Instructions Given to Patient (Per Discharging Provider) Use Lantus insulin 10 units twice daily, at breakfast and at suppertime. Check glucose levels before each insulin injection and record on paper for PCP to review. Prescriptions have been sent to your pharmacy. The biopsy done on January 16 reveals only necrotic tissue. You will need continued outpatient follow-up for further evaluation of the pelvic mass. Total Time Total Time Spent Total Time Spent (In Minutes): 45 minutes Coding Level of Care Code 74979 INP/OBS DISCH >30 MIN Diagnoses Pelvic mass R19.00 Ureteral obstruction, left N13.5 Diabetes mellitus type 2 in nonobese E11.9 UTI (urinary tract infection) N39.0
== END 2024-01-20 18:36 | disposition home or self-care (01) | DRG 746 ==
LOC: ED 14:05 → EDINP 17:10 → SUATTDRO 17:10 → 2S 20:18

== ENCOUNTER 2024-03-09 22:10 | Inpatient (IN) ==
[2024-03-09 22:44] LABS: Basophils # (auto) 0.02 K/uL (0.00-0.20); Basophils % (auto) 0.1 %; Eosinophils % (auto) 0.7 %; Hemoglobin 11.4 g/dl (12.0-16.0); Immature Granulocytes # (auto) 0.04 K/uL (0.01-0.20); Immature Granulocytes % (auto) 0.3 %; Lymphocytes # (auto) 1.29 K/uL (1.20-3.40); Lymphocytes % (auto) 9.2 %; Mean Corpuscular Hemoglobin 28.4 pg (25.0-34.0); Mean Corpuscular Hgb Conc 32.6 g/dL (32.0-36.0); Mean Corpuscular Volume 87.3 fL (80.0-100.0); Mean Platelet Volume 9.9 fL (9.4-12.4); Monocytes # (auto) 0.17 K/uL (0.11-0.59); Monocytes % (auto) 1.2 %; Neutrophils # (auto) 12.36 K/uL (1.40-6.50); Neutrophils % (auto) 88.5 %; Platelet Count 375 K/uL (130-400); RDW Standard Deviation 44.6 fL (36.4-46.3); Red Blood Count 4.01 M/uL (4.20-5.40); White Blood Count 13.98 K/ul (4.8-10.8)
[2024-03-09 23:00] LABS: Albumin Globulin Ratio 1.1 (0.9-2); Albumin Level 3.3 gm/dl (3.4-5.0); BUN Creatinine Ratio 20.7 (10-20); Bilirubin,Total 0.5 mg/dl (0.2-1.0); Calcium 8.6 mg/dl (8.6-10.3); Creatinine Clr Calc Pharmacy 32.1 ml/min; Globulin 3.1 gm/dl (2.5-4.0); Potassium 3.7 mmol/L (3.5-5.1); Total Protein 6.4 gm/dl (6.0-8.3)
--- NOTE | 2024-03-09 23:37 | Emergency Department Note ---
Impression & Plan Complicated UTI (urinary tract infection), Severe sepsis, Closed head injury, Syncope and collapse ED Provider Note Name: MASOOD STRAUSS Age: 78 Sex: Female Arrives Via: Ambulance Informant: Patient, son and [id number] ED Provider: Jordi Simental MD Chief Complaint: Syncope Impression: As per impressions above Medical Decision Makin-year-old female arrives for evaluation of syncope following a days worth of weakness and fatigue. Syncope resulted in head injury with 10 to 15-second loss of consciousness. Arrives awake alert oriented neuro intact. Patient with a long history of UTIs as she does straight catheter self via urostomy. On arrival patient is mildly hypotensive hypothermic and I have concern for infection. Cultures and lactate ordered. Lactate modestly elevated. Patient likely has severe sepsis secondary to UTI. She was given empiric cefepime as that bacteria previously and UA. She was given 2 L normal saline bolus IV for sepsis resuscitation. Repeat sepsis evaluation at 2 AM on 03/10/2024 patient is stable looks well with improvement in blood pressure and good mental status. Patient does not have septic shock. Patient will be hospitalized for management further. Patient did strike head and the CT head and cervical spine were obtained. Fortunately no intracranial hemorrhage or mass effect or fracture. Patient does not have any resulting neurologic deficits nor significant headache at this time. No indication or need for transfer to trauma center at this point. Triage/Nursing Notes reviewed by Me Differential:Infection, dehydration, metabolic abnormality, hypo/hyperglycemia, electrolyte disturbance, anemia, hypoxia, cardiac sources, intracerebral event, toxicologic, neurologic, as well as other pathologies. Vital Signs: reviewed and remarkable for hypothermia, hypotension Interventions: nss bolus 2 L IV, cefepime 2 gm iv Labs:ED labs Reviewed by me and remarkable for elevated lactic acid, elevated wbc Imaging: CT of the head without contrast as per my informal interpretation reveals no intracranial hemorrhage or mass effect. CT of the cervical spine without contrast as per my informal interpretation reveals no fracture or dislocation. CTs were confirmed by radiology. EKG:As per my interpretation. Indication syncope. Normal sinus rhythm at 77 bpm QTc of 439. There is no ectopy nor ischemia. When compared to January 16, 2024 there is no significant change. Cardiac/Tele Monitoring: Cardiac Monitoring: An Order was placed for continuous cardiac monitoring. The monitor shows a rate of 70 with a normal sinus rhythm. Consults:Discussed with Dr King of [facility] Hospitalist service for further management Plan: Disposition:Hospitalization. Condition: Good History of Present Illness: 78-year-old female arrives for evaluation of syncope. Patient was trying to go to the bathroom this evening when she had a syncopal episode. Patient did fall and strike the back of her head on ceramic tile. She had a second syncopal event shortly thereafter that this. Patient unresponsive for 10 to 15 seconds maintained airway and was breathing throughout though. Patient has been feeling ill for the last 24 to 36 hours. Associated with nausea, vomiting, chills, mild confusion. She has long history UTIs secondary to straight cathing her urostomy. She follows closely with urology and was actually just on Cipro about 2 weeks ago for a UTI that was reportedly resistant to doxycycline. Due to developing symptoms today family did give her a dose of Macrobid. Later this evening she had a second dose. A bit after that she took some Benadryl as she was starting to get some red areas of her arms and legs with a possible hive on her abdomen. Patient did lose bowel control this evening. Rash has resolved. Denies any current headache, neck pain, chest pain, abdominal pain or concerning signs or symptoms. Past Medical History:See Below Home Medications:See Below Allergies:See Below Vitals:Blood Pressure: 107/60, Pulse 75, RR 18, T 35.3 C, O2 96% on RA Physical Exam: GENERAL: Patient is tired appearing and in mild distress. HEAD: Large hematoma posterior lower left scalp NECK: Non tender, no stepoff RESPIRATORY: No dyspnea. Clear to auscultation and equal bilaterally. CARDIOVASCULAR: Regular rate and rhythm.No murmur appreciated. GASTROINTESTINAL: Abdomen soft, non-tender, no peritonitis. EXTREMITIES: Normal motion all extremities, no cyanosis, no edema. NEUROLOGIC: Alert and oriented. No focal neurologic deficits appreciated SKIN: No rash, no jaundice, no diaphoresis. PSYCH: Appropriate GCS: 15 ED Course: Times/Reassessments: Patient does appear much improved following fluid resuscitation. Critical Care: I have personally spent 40 minutes of critical care time in the direct management of this patient. Severe sepsis secondary to complicated UTI with hypothermia, hypotension and elevated WBC & Lactic acid. This was a life/limb threatening event. This 40 minutes is in excess of all separately billable procedures. Jordi Simental MD Past Med/Surg History Problem List (Updated 03/10/24 @ 04:11 by Jordi Simental MD) Syncope and collapse (Acute) Closed head injury (Acute) Severe sepsis (Acute) Complicated UTI (urinary tract infection) (Acute) Sepsis due to urinary tract infection Ureterovaginal fistula Encounter for pre-operative examination Ureteral obstruction, left Pelvic mass Weakness (Acute) Bladder mass Gross hematuria Hypertension Diabetes Prolapse of female pelvic organs Frequent UTI Medical History Bladder mass Osteoporosis GERD (gastroesophageal reflux disease) Sleep apnea no device Family history of reaction to anesthesia SISTER - N/V Nausea and vomiting after administration of anesthetic agent Frequent UTI as of 02/24/24, currently on abx HTN (hypertension) Diabetes NIDDM Cervical cancer hx 1982, hx radiation , and 2 nicole implants Surgical History History of transurethral resection of bladder tumor (TURBT) w/stent placement, 01/17/24, [facility] S/P cystoscopy with ureteral stent placement w/ureteroscopy, bilat. 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 Beliefs That Will Affect Care: None marital status: / Current Living Situation: Alone Current Living Situation Comment: home alone current occupational status: retired Feels Safe at Home: Yes Assistive Devices: Cane Allergies Allergies Allergy/AdvReac Type Severity Reaction Status Date / Time nitrofurantoin Allergy Intermediate Redness of Verified 03/10/24 01:59 [From Macrobid] Skin Home Meds Home Medications Medication Instructions Recorded Confirmed diltiazem HCl 180 mg 180 mg PO QAM 06/23/21 03/10/24 capsule,extended release 24 hr (Cardizem CD) lisinopril 20 mg tablet 20 mg PO QAM 06/23/21 03/10/24 magnesium oxide 400 mg PO BID 06/23/21 03/10/24 metformin 500 mg tablet 1,000 mg PO BID 06/23/21 03/10/24 pantoprazole 40 mg tablet,delayed 40 mg PO QAM 06/23/21 03/10/24 release (Protonix) multivitamin 1 cap PO QAM 07/14/21 03/10/24 gabapentin 400 mg capsule 400 mg PO TID 01/16/24 03/10/24 pravastatin 20 mg tablet 20 mg PO QAM 03/09/24 03/10/24 insulin glargine 100 unit/mL (3 20 unit subcut QA 03/10/24 03/10/24 mL) subcutaneous pen (Lantus Solostar U-100 Insulin) Results & Data (ED) Vital Signs Vital Signs - 24 hr 03/09/24 21:54 03/09/24 22:17 03/10/24 00:06 Temperature 35.3 C L Temperature Source Oral Pulse Rate 76 75 Pulse Rate [Apical] 83 Pulse Rhythm [Apical] Regular Pulse Strength [Apical] Normal Respiratory Rate 18 18 Respiratory Effort / Characteristics Non-Labored Spontaneous Non-Labored Spontaneous Respiratory Depth Normal Normal Respiratory Pattern Regular Regular Blood Pressure 107/60 Blood Pressure [Right Arm] 109/51 L Blood Pressure Mean 75 Blood Pressure Mean [Right Arm] 70 Blood Pressure Position [Right Arm] Semi-fowlers Pulse Oximetry 96 98 Oxygen Delivery Method Room Air Room Air Sepsis Recent Fever Within 48 Hours No Sepsis New/Unexplained Change in Mental Status N/A Sepsis Action Taken by Nursing No Action Required 03/10/24 02:00 03/10/24 02:10 Temperature 36.6 C Temperature Source Oral Pulse Rate 76 Pulse Rate [Apical] 75 Pulse Rhythm [Apical] Regular Pulse Strength [Apical] Normal Respiratory Rate 18 Respiratory Effort / Characteristics Non-Labored Spontaneous Respiratory Depth Normal Respiratory Pattern Regular Blood Pressure Blood Pressure [Right Arm] 104/53 L Blood Pressure Mean Blood Pressure Mean [Right Arm] 70 Blood Pressure Position [Right Arm] Semi-fowlers Pulse Oximetry 94 Oxygen Delivery Method Room Air Sepsis Recent Fever Within 48 Hours Sepsis New/Unexplained Change in Mental Status Sepsis Action Taken by Nursing Laboratory Data 03/09/24 22:25 03/09/24 22:25 Lab Results 03/09/24 03/09/24 03/10/24 Range/Units 22:25 23:48 00:01 WBC 13.98 H (4.8-10.8) K/ul RBC 4.01 L (4.20-5.40) M/uL Hgb 11.4 L (12.0-16.0) g/dl Hct 35.0 L (37.0-47.0) % MCV 87.3 (80.0-100.0) fL MCH 28.4 (25.0-34.0) pg MCHC 32.6 (32.0-36.0) g/dL RDW Std Deviation 44.6 (36.4-46.3) fL RDW Coeff of Anders 14.0 (11.5-14.5) % Plt Count 375 (130-400) K/uL MPV 9.9 (9.4-12.4) fL Immature Gran % (Auto) 0.3 % Neut % (Auto) 88.5 % Lymph % (Auto) 9.2 % [place] % (Auto) 1.2 % Eos % (Auto) 0.7 % Baso % (Auto) 0.1 % Neut # (Auto) 12.36 H (1.40-6.50) K/uL Lymph # (Auto) 1.29 (1.20-3.40) K/uL [place] # (Auto) 0.17 (0.11-0.59) K/uL Eos # (Auto) 0.10 (0.00-0.50) K/uL Baso # (Auto) 0.02 (0.00-0.20) K/uL Immature Gran # (Auto) 0.04 (0.01-0.20) K/uL Sodium 134 L (136-145) mmol/L Potassium 3.7 (3.5-5.1) mmol/L Chloride 102 (98-107) mmol/L Carbon Dioxide 23 (21-32) mmol/L Anion Gap 9 (3-11) BUN 29 H (6-23) mg/dl Creatinine 1.40 H (0.6-1.2) mg/dl Est Cr Clr Drug Dosing 32.1 ml/min eGFR 38.75 BUN/Creatinine Ratio 20.7 H (10-20) Glucose 175 H (70-99(Fasting)) mg/dl Lactate 2.2 H* (0.4-2.0) mmol/L Calcium 8.6 (8.6-10.3) mg/dl Magnesium 1.4 L (1.7-2.4) mg/dl Total Bilirubin 0.5 (0.2-1.0) mg/dl AST 10 L (13-39) U/L ALT 7 (7-52) U/L Alkaline Phosphatase 41 (34-104) U/L Troponin I High Sens 4.4 (0-14) pg/ml Total Protein 6.4 (6.0-8.3) gm/dl Albumin 3.3 L (3.4-5.0) gm/dl Globulin 3.1 (2.5-4.0) gm/dl Albumin/Globulin Ratio 1.1 (0.9-2) Procalcitonin 0.11 (0-0.5) ng/ml Urine Color Dark Yellow Urine Appearance Turbid A (Clear) Urine pH 5.0 (4.5-7.5) Ur Specific [place] 1.019 (1.000-1.030) Urine Protein 2+ H (Negative) Urine Glucose (UA) Negative (Negative) Urine Ketones Trace H (Negative) Urine Blood 1+ H (Negative) Urine Nitrite Negative (Negative) Urine Bilirubin Negative (Negative) Urine Urobilinogen Negative (Negative) Ur Leukocyte Esterase 3+ H (Negative) Urine WBC (Auto) >50 H (0-5) /hpf Urine RBC (Auto) 0-2 (0-2) /hpf U Hyaline Cast (Auto) >20 H (0-2) /lpf U Epithel Cells (Auto) 3-5 H (0-2) /hpf Urine Bacteria (Auto) 1+ H (None Seen) Urine Yeast Present A (None Prsent) Administered Medications Sodium Chloride (Nss) 1,000 mls @ 80 mls/hr IV .[id number] HANNAH Stop: 03/10/24 14:59 Last Admin: 03/10/24 03:52 Dose: 80 mls/hr Documented By: IDD Discontinued Medications Sodium Chloride (Nss) 1,000 mls @ 999 mls/hr IV .Q1H1M ONE Stop: 03/10/24 00:32 Last Infusion: 03/10/24 02:01 Dose: Infused Documented By: Admin: 03/10/24 00:00 Dose: 999 mls/hr Documented By: IDD Cefepime HCl (Maxipime 2000mg) 2,000 mg in 20 mls @ 5 mls/min IV NOW STA; Protocol Stop: 03/10/24 00:12 Last Admin: 03/10/24 00:57 Dose: 5 mls/min Documented By: IDD Sodium Chloride (Nss) 1,000 mls @ 999 mls/hr IV .Q1H1M ONE Stop: 03/10/24 01:09 Last Infusion: 03/10/24 02:01 Dose: Infused Documented By: Admin: 03/10/24 00:45 Dose: 999 mls/hr Documented By: IDD Albumin Human (Albumin 25%) 25 gm in 100 mls @ 50 mls/hr IV ONE ONE Stop: 03/10/24 04:23 Last Admin: 03/10/24 03:51 Dose: 50 mls/hr Documented By: IDD Imaging Data Radiologist's Impression: Cervical Spine CT 03/09/24 23:32 EXAM: CT cervical spine wo con CLINICAL HISTORY: fall, head injury with loc, r/o trauma TECHNIQUE: Computed tomography of the cervical spine performed without intravenous contrast. Contiguous axial images were obtained from the skull base to T2, with sagittal and coronal reformatted images reconstructed from the axial data. CT scan was performed according to ALARA (as low as reasonably achievable). COMPARISON: None FINDINGS: Loss of cervical lordosis - suggest possibility of muscle spasm/positional. Degenerative changes involving cervical spine in the form of multilevel marginal osteophytes, disc space reduction and facetal arthrosis. Posterior uncovertebral arthrosis is noted at C3-C4 to C6-C7 C6-C7 levels, which indenting ventral thecal sac and causes bilateral neuroforaminal narrowing. Cervical vertebral bodies are normal in height and alignment, with no evidence of fracture or subluxation. Lateral masses of C1 are symmetrical, and the dens is intact. Prevertebral soft tissues are not widened. The remaining suprahyoid and infrahyoid soft tissues in the neck are unremarkable. Thyroid gland appears unremarkable. IMPRESSION: 1.No acute fracture or subluxation in the cervical spine. 2. Cervical spondylosis. Electronically signed by Dale Quintero 03-10-2024 02:[address] 03/09/24 23:32 EXAM: CT head/brain wo con CLINICAL HISTORY: fall, head injury with loc, r/o trauma TECHNIQUE: Multiple axial images are obtained from the skull base to the vertex without contrast. CT scan was performed according to ALARA (as low as reasonable achievable). COMPARISON: None. FINDINGS: There is cerebral atrophy. No evidence of space occupying lesion, hemorrhage, edema, mass effect, midline shift, extra axial collection, or hydrocephalus is noted. Basal cisterns are symmetric and normal in size and configuration. There are scattered periventricular hypodensities as can be seen with chronic microvascular ischemic changes. The andersen-white matter differentiation is preserved. Visualized paranasal sinuses and mastoid air cells are well aerated. Orbital contents are within normal limits. Bony structures are intact. IMPRESSION: 1. No evidence of acute intracranial abnormality is demonstrated. 2. Chronic microvascular ischemic changes. 3. Cerebral atrophy. Electronically signed by Dale Quintero 03-10-2024 01:36 AM Discharge Plan Visit Data Chief Complaint: Fall Stated Complaint: FELL, HIT HEAD, SYNCOPE ED Provider: Jordi Simental Discharge Problem: Complicated UTI (urinary tract infection), Severe sepsis, Closed head injury, Syncope and collapse Patient Disposition: Admitted As Inpatient Discharge Instructions Interventions: ED Discharge Assessment Last Done: 03/10/24 03:32 Discharge Problem: Closed head injury Qualifiers: Encounter type: initial encounter Qualified Code(s): S09.90XA - Unspecified injury of head, initial encounter
[2024-03-10 00:05] LABS: Troponin I High Sensitivity 4.4 pg/ml (0-14)
[2024-03-10 00:40] LABS: Appearance Urine Turbid (Clear); Bacteria Urine Automated 1+ (None Seen); Bilirubin Urine Negative (Negative); Blood Urine 1+ (Negative); Cast Urine Automated >20 /lpf (0-2); Color Urine Dark Yellow; Glucose Urine UA Negative (Negative); Ketones Urine Trace (Negative); Leukocyte Esterase Urine 3+ (Negative); Nitrite Urine Negative (Negative); Protein Urine 2+ (Negative); RBC Urine Automated 0-2 /hpf (0-2); Specific Gravity Urine 1.019 (1.000-1.030); Urobilinogen Urine Negative (Negative); WBC Urine Automated >50 /hpf (0-5)
[2024-03-10] MEDS: SODIUM CHLORIDE 0.9% 1,000 ML IV ONE ×2 (00:45)
[2024-03-10] MEDS: CEFEPIME 2000MG 2,000 MG/20 ML SYR IV STA (00:57)
--- NOTE | 2024-03-10 01:36 | CT Scan Report ---
EXAM: CT head/brain wo con CLINICAL HISTORY: fall, head injury with loc, r/o trauma TECHNIQUE: Multiple axial images are obtained from the skull base to the vertex without contrast. CT scan was performed according to ALARA (as low as reasonable achievable). COMPARISON: None. FINDINGS: There is cerebral atrophy. No evidence of space occupying lesion, hemorrhage, edema, mass effect, midline shift, extra axial collection, or hydrocephalus is noted. Basal cisterns are symmetric and normal in size and configuration. There are scattered periventricular hypodensities as can be seen with chronic microvascular ischemic changes. The andersen-white matter differentiation is preserved. Visualized paranasal sinuses and mastoid air cells are well aerated. Orbital contents are within normal limits. Bony structures are intact. IMPRESSION: 1. No evidence of acute intracranial abnormality is demonstrated. 2. Chronic microvascular ischemic changes. 3. Cerebral atrophy. Electronically signed by Dale Quintero 03-10-2024 01:36 AM
--- NOTE | 2024-03-10 02:14 | CT Scan Report ---
EXAM: CT cervical spine wo con CLINICAL HISTORY: fall, head injury with loc, r/o trauma TECHNIQUE: Computed tomography of the cervical spine performed without intravenous contrast. Contiguous axial images were obtained from the skull base to T2, with sagittal and coronal reformatted images reconstructed from the axial data. CT scan was performed according to ALARA (as low as reasonably achievable). COMPARISON: None FINDINGS: Loss of cervical lordosis - suggest possibility of muscle spasm/positional. Degenerative changes involving cervical spine in the form of multilevel marginal osteophytes, disc space reduction and facetal arthrosis. Posterior uncovertebral arthrosis is noted at C3-C4 to C6-C7 C6-C7 levels, which indenting ventral thecal sac and causes bilateral neuroforaminal narrowing. Cervical vertebral bodies are normal in height and alignment, with no evidence of fracture or subluxation. Lateral masses of C1 are symmetrical, and the dens is intact. Prevertebral soft tissues are not widened. The remaining suprahyoid and infrahyoid soft tissues in the neck are unremarkable. Thyroid gland appears unremarkable. IMPRESSION: 1.No acute fracture or subluxation in the cervical spine. 2. Cervical spondylosis. Electronically signed by Dale Quintero 03-10-2024 02:13 AM
--- OUTSIDE RECORDS SUMMARY | 2024-03-10 02:33 | External Medical Summary | Summary of Care ---
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 [facility] What condition is the patient being referred for? 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 (Adult - for ages 18 years and over) Not on file 08/23/2023 Is your family able to pay t he heat, water, or electric bill? (Household - for ages 0-17 years) Not on file 08/23/2023 Does your family have access to good internet? (Household - for ages 0-17 years) Not on file 08/23/2023 Social Connections Answer Date Recorded How often do you feel lonely or isolated from those around you? 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 Ordered: 03/02/2024 Health Maintenance Due Date Last Done Comments Depression Screening 1957 Hepatitis C Screening 1964 DTap/Tdap Vaccines (1 - Tdap) 1965 Pneumococcal Vaccine: 50+ Ye ars (1 of 1 - PCV) 1996 Zoster Vaccines (1 of 2) 1996 DXA Scan 11/11/2011 COVID-19 Vaccine ( - 2023-2 5 season) 2023 Influenza Vaccine (FLU shot) (#1) 2023 HPV (Gardasil) Vaccine Aged Out No lo nger eligible based on patient's age to complete this topic Hepatitis B Vaccine Aged Out No longe r eligible based on patient's age to complete this topic MENINGOCOCCAL (MENACTRA/MENVEO) Aged Out No longer eligible based on patient's age to complete this topic documented as of this encounter Medical Devices Not on filedocumented as of this encounter Visit Diagnoses Diagnosis 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
--- NOTE | 2024-03-10 02:34 | History & Physical Report ---
Date of Service March 10, 2024 Assessment & Plan (1) Sepsis due to urinary tract infection: (2) Complicated UTI (urinary tract infection): (3) IVONNE (acute kidney injury): (4) Frequent UTI: Plan The patient is a 78-year-old female with a past medical history including diabetes mellitus, bladder mass, hypertension, peripheral neuropathy, hypomagnesemia, GERD, hyperlipidemia, history of recurrent UTI, and history of ureteral stone. The patient presents to the emergency department after syncopal episode, mild head trauma, and associated confusion, nausea, vomiting and chills. Patient presents to the emergency department after a syncopal episode at home, while patient was attempting to go to the bathroom, where she fell and did strike the back of her head on a ceramic tile. She did have a second syncopal episode duration of 10 to 15 seconds shortly afterwards. Family reports that she has been not feeling well over the past 1 to 2 days. She has had nausea, vomiting, chills and some mild confusion. She underwent a left ureteral stent exchange with cystoscopy retrograde pyelogram on 03/02/2024. She had been placed on Cipro which she been taking twice a day as directed. #Sepsis/hypotension due to urinary tract infection- Follow urine culture and sensitivity Empiric cefepime 2 g IV every 12 hours begun in the ED Status post normal saline 1 L bolus IV x 2 Give albumin 25 g IV x 1, placed on NSS at 80 mL/h x 1 L UTI on 02/24/2024 with pansensitive Pseudomonas UTI on 01/16/2024 with a Aerococcus UTI on 09/15/2021 with Klebsiella UTI on 08/05 and 08/19/2021 with Enterococcus faecalis Admit to monitored bed for close blood pressure monitoring Consult urology, as patient had cystoscopy with retrograde pyelogram and left ureteral stent exchange on 03/02/2024 Of note, patient has an outpatient appointment at [facility] in [place] on 03/12/2024 for consult regarding a potential diverticulum surgery, that will need to be confirmed and/or rearranged Hypertension- Patient's blood pressure is relatively low at this time hold lisinopril and diltiazem Fluid resuscitation as noted Diabetes mellitus- Holding metformin decrease glargine from 20 to 10 units subcu every morning Placed on Accu-Cheks with NovoLog SSI Chronic medical issues: Peripheral neuropathy-temporarily holding gabapentin while n.p.o. GERD-placed pantoprazole 40 mg IV daily Hyperlipidemia and temporarily have pravastatin on hold while n.p.o. History of Present Illness Chief Complaint: Patient presents to the emergency department after a syncopal episode at home, while patient was attempting to go to the bathroom, where she fell and did strike the back of her head on a ceramic tile. She did have a second syncopal episode duration of 10 to 15 seconds shortly afterwards. Family reports that she has been not feeling well over the past 1 to 2 days. She has had nausea, vomiting, chills and some mild confusion. She underwent a left ureteral stent exchange with cystoscopy retrograde pyelogram on 03/02/2024. She had been placed on Cipro which she been taking twice a day as directed. Primary Care Provider: MACRINA Ramirez The patient is a 78-year-old female with a past medical history including diabetes mellitus, bladder mass, hypertension, peripheral neuropathy, hypomagnesemia, GERD, hyperlipidemia, history of recurrent UTI, and history of ureteral stone. The patient presents to the emergency department after syncopal episode, mild head trauma, and associated confusion, nausea, vomiting and chills. Allergies Allergy/AdvReac Type Severity Reaction Status Date / Time nitrofurantoin Allergy Intermediate Redness of Verified 03/10/24 01:59 [From Macrobid] Skin Home Medications Medication Instructions Recorded Confirmed Type diltiazem HCl 180 mg 180 mg PO QAM 06/23/21 03/10/24 History capsule,extended release 24 hr (Cardizem CD) lisinopril 20 mg tablet 20 mg PO QAM 06/23/21 03/10/24 History magnesium oxide 400 mg PO BID 06/23/21 03/10/24 History metformin 500 mg tablet 1,000 mg PO BID 06/23/21 03/10/24 History pantoprazole 40 mg tablet,delayed 40 mg PO QAM 06/23/21 03/10/24 History release (Protonix) multivitamin 1 cap PO QAM 07/14/21 03/10/24 History gabapentin 400 mg capsule 400 mg PO TID 01/16/24 03/10/24 History pravastatin 20 mg tablet 20 mg PO QAM 03/09/24 03/10/24 History insulin glargine 100 unit/mL (3 20 unit subcut QAM 03/10/24 03/10/24 History mL) subcutaneous pen (Lantus Solostar U-100 Insulin) Past Med/Surg History Problem List (Updated 03/10/24 @ 03:08 by Tian King MD) Complicated UTI (urinary tract infection) Sepsis due to urinary tract infection Ureterovaginal fistula Encounter for pre-operative examination Ureteral obstruction, left Pelvic mass Weakness (Acute) Bladder mass Gross hematuria Hypertension Diabetes Prolapse of female pelvic organs Frequent UTI Medical History Bladder mass Osteoporosis GERD (gastroesophageal reflux disease) Sleep apnea no device Family history of reaction to anesthesia SISTER - N/V Nausea and vomiting after administration of anesthetic agent Frequent UTI as of 02/24/24, currently on abx HTN (hypertension) Diabetes NIDDM Cervical cancer hx 1982, hx radiation , and 2 nicole implants Surgical History History of transurethral resection of bladder tumor (TURBT) w/stent placement, 01/17/24, [facility], [place] S/P cystoscopy with ureteral stent placement w/ureteroscopy, bilat. RP, urethral dilation, 2021 History of endoscopy History of colonoscopy History of surgery nicole implants for hx cervical cancer History of cholecystectomy Family History Grandmother Family history of diabetes mellitus Mother Pre-diabetes Social History Smoking Status: Never smoker Second Hand Exposure: No; Do You Dip or Chew Tobacco: No; Hx Alcohol Use: No Hx Substance Use: No Preferred Language: [place] Communication Ability: Effective Hand Umbrella Tipper Required: No Beliefs That Will Affect Care: None marital status: / Current Living Situation: Alone Current Living Situation Comment: home alone current occupational status: retired Feels Safe at Home: Yes Assistive Devices: Cane Review of Systems Review of Systems: The patient was initially not responsive during examination, but woke up, and was very alert, responsive, and had none of the symptoms as noted above all been resolved. Physical Exam Physical Exam: The patient is awake, alert and oriented 3, well developed and well nourished, normocephalic and atraumatic, lying in bed and in no acute distress. HEENT--PERRL, EOMI, mucous membranes and oropharynx mildly dry. Neck--supple. No JVD. No bruits. Thyroid normal, trachea midline, no adenopathy. Heart--normal S1 and S2. No murmurs, rubs or gallops. Lungs--clear bilaterally, no respiratory distress, no accessory muscle use. Abdomen--normal bowel sounds and soft. Nontender. Nondistended, no hernias or masses, no organomegaly. Extremities--no cyanosis or clubbing. No edema. There are good distal pulses b/l. Dermatologic--normal skin turgor, normal color, no abnormal lymph nodes, no rash. Neurologic--cranial nerves II through XII grossly intact. Rheumatologic--normal range of motion. Psychiatric--normal affect. Results & Data Results & Data Vital Signs (Past 12 Hours) Vital Signs Temp Pulse Pulse Resp BP BP Pulse Ox 03/10/24 02:10 76 03/10/24 02:00 36.6 C 75 18 104/53 L 94 03/10/24 00:06 83 18 109/51 L 98 03/09/24 22:17 75 03/09/24 21:54 35.3 C L 76 18 107/60 96 O2 Del Method 03/10/24 02:10 03/10/24 02:00 Room Air 03/10/24 00:06 Room Air 03/09/24 22:17 03/09/24 21:54 Room Air Laboratory Results Laboratory Results WBC 13.98 K/ul (4.8-10.8) H 03/09/24 22: RBC 4.01 M/uL (4.20-5.40) L 03/09/24 22:25 Hgb 11.4 g/dl (12.0-16.0) L 03/09/24 22:25 Hct 35.0 % (37.0-47.0) L 03/09/24 22:25 MCV 87.3 fL (80.0-100.0) 03/09/24 22:25 MCH 28.4 pg (25.0-34.0) 03/09/24 22:25 MCHC 32.6 g/dL (32.0-36.0) 03/09/24: RDW Std Deviation 44.6 fL (36.4-46.3) 03/09/24: RDW Coeff of Anders 14.0 % (11.5-14.5) 03/09/24: Plt Count 375 K/uL (130-400) 03/09/24: MPV 9.9 fL (9.4-12.4) 03/09/24 22: Immature Gran % (Auto) 0.3 % 03/09/24: Neut % (Auto) 88.5 % 03/09/24: Lymph % (Auto) 9.2 % 03/09/24: [place] % (Auto) 1.2 % 03/09/24: Eos % (Auto) 0.7 % 03/09/24: Baso % (Auto) 0.1 % 03/09/24: Neut # (Auto) 12.36 K/uL (1.40-6.50) H 03/09/24: Lymph # (Auto) 1.29 K/uL (1.20-3.40) 03/09/24: [place] # (Auto) 0.17 K/uL (0.11-0.59) 03/09/24: Eos # (Auto) 0.10 K/uL (0.00-0.50) 03/09/24:25 Baso # (Auto) 0.02 K/uL (0.00-0.20) 03/09/24: Immature Gran # (Auto) 0.04 K/uL (0.01-0.20) 03/09/24 22: Sodium 134 mmol/L (136-145) L 03/09/24 22: Potassium 3.7 mmol/L (3.5-5.1) 03/09/24: Chloride 102 mmol/L (98-107) 03/09/24 22: Carbon Dioxide 23 mmol/L (21-32) 03/09/24 22:25 Anion Gap 9 (3-11) 03/09/24: BUN 29 mg/dl (6-23) H 03/09/24: Creatinine 1.40 mg/dl (0.6-1.2) H 03/09/24 22:25 Est Cr Clr Drug Dosing 32.1 ml/min 03/09/24 22: eGFR 38.75 03/09/24: BUN/Creatinine Ratio 20.7 (10-20) H 03/09/24 22: Glucose 175 mg/dl (70-99(Fasting)) H 03/09/24: Lactate 1.1 mmol/L (0.4-2.0) 03/10/24 02:42 Calcium 8.6 mg/dl (8.6-10.3) 03/09/24: Total Bilirubin 0.5 mg/dl (0.2-1.0) 03/09/24: AST 10 U/L (13-39) L 03/09/24: ALT 7 U/L (7-52) 03/09/24: Alkaline Phosphatase 41 U/L (34-104) 03/09/24: Troponin I High Sens 4.4 pg/ml (0-14) 03/09/24 22: Total Protein 6.4 gm/dl (6.0-8.3) 03/09/24 22: Albumin 3.3 gm/dl (3.4-5.0) L 03/09/24: Globulin 3.1 gm/dl (2.5-4.0) 03/09/24: Albumin/Globulin Ratio 1.1 (0.9-2) 03/09/24: Procalcitonin 0.11 ng/ml (0-0.5) 03/09/24 22: Urine Color Dark Yellow 03/10/24 00: Urine Appearance Turbid (Clear) A 03/10/24 00: Urine pH 5.0 (4.5-7.5) 03/10/24 00: Ur Specific [place] 1.019 (1.000-1.030) 03/10/24 00:01 Urine Protein 2+ (Negative) H 03/10/24 00:01 Urine Glucose (UA) Negative (Negative) 03/10/24 00: Urine Ketones Trace (Negative) H 03/10/24 00:01 Urine Blood 1+ (Negative) H 03/10/24 00:01 Urine Nitrite Negative (Negative) 03/10/24 00:01 Urine Bilirubin Negative (Negative) 03/10/24 00:01 Urine Urobilinogen Negative (Negative) 03/10/24 00:01 Ur Leukocyte Esterase 3+ (Negative) H 03/10/24 00:01 Urine WBC (Auto) >50 /hpf (0-5) H 03/10/24 00:01 Urine RBC (Auto) 0-2 /hpf (0-2) 03/10/24 00:01 U Hyaline Cast (Auto) >20 /lpf (0-2) H 03/10/24 00:01 U Epithel Cells (Auto) 3-5 /hpf (0-2) H 03/10/24 00:01 Urine Bacteria (Auto) 1+ (None Seen) H 03/10/24 00:01 Urine Yeast Present (None Prsent) A 03/10/24 00:[address] 03/09/24 23:32 EXAM: CT cervical spine wo con CLINICAL HISTORY: fall, head injury with loc, r/o trauma TECHNIQUE: Computed tomography of the cervical spine performed without intravenous contrast. Contiguous axial images were obtained from the skull base to T2, with sagittal and coronal reformatted images reconstructed from the axial data. CT scan was performed according to ALARA (as low as reasonably achievable). COMPARISON: None FINDINGS: Loss of cervical lordosis - suggest possibility of muscle spasm/positional. Degenerative changes involving cervical spine in the form of multilevel marginal osteophytes, disc space reduction and facetal arthrosis. Posterior uncovertebral arthrosis is noted at C3-C4 to C6-C7 C6-C7 levels, which indenting ventral thecal sac and causes bilateral neuroforaminal narrowing. Cervical vertebral bodies are normal in height and alignment, with no evidence of fracture or subluxation. Lateral masses of C1 are symmetrical, and the dens is intact. Prevertebral soft tissues are not widened. The remaining suprahyoid and infrahyoid soft tissues in the neck are unremarkable. Thyroid gland appears unremarkable. IMPRESSION: 1.No acute fracture or subluxation in the cervical spine. 2. Cervical spondylosis. Electronically signed by Dale Quintero 03-10-2024 02:[address] 03/09/24 23:32 EXAM: CT head/brain wo con CLINICAL HISTORY: fall, head injury with loc, r/o trauma TECHNIQUE: Multiple axial images are obtained from the skull base to the vertex without contrast. CT scan was performed according to ALARA (as low as reasonable achievable). COMPARISON: None. FINDINGS: There is cerebral atrophy. No evidence of space occupying lesion, hemorrhage, edema, mass effect, midline shift, extra axial collection, or hydrocephalus is noted. Basal cisterns are symmetric and normal in size and configuration. There are scattered periventricular hypodensities as can be seen with chronic microvascular ischemic changes. The andersen-white matter differentiation is preserved. Visualized paranasal sinuses and mastoid air cells are well aerated. Orbital contents are within normal limits. Bony structures are intact. IMPRESSION: 1. No evidence of acute intracranial abnormality is demonstrated. 2. Chronic microvascular ischemic changes. 3. Cerebral atrophy. Electronically signed by Dale Quintero 03-10-2024 01:36 AM Code Status & VTE Plan Code Status Full code VTE Prophylaxis Plan VTE Prophylaxis will be ordered: Yes PG Care Time/CCT Total # of Minutes Spent Total Time Spent with Patient: Total time spent is greater than 50% in coordination of care (as documented) at patient's floor/unit and/or counseling patient: Coding Level of Care Code 96663 INT INP/OBS CARE 3/75MIN Diagnoses Sepsis due to urinary tract infection A41.9; N39.0 Complicated UTI (urinary tract infection) N39.0 IVONNE (acute kidney injury) N17.9 Frequent UTI N39.0
[2024-03-10 03:19] LABS: Magnesium 1.4 mg/dl (1.7-2.4)
[2024-03-10] MEDS ORDERED: ACETAMINOPHEN 1000 MG/100 ML IV IV PRN (03:32)
[2024-03-10] MEDS ORDERED: GLUCAGON FOR INJ 1 MG VIAL SQ PRN (03:32)
[2024-03-10] MEDS ORDERED: CARBOHYDRATES FOR HYPOGLYCEMIA PO PRN (03:32)
[2024-03-10] MEDS ORDERED: GLUCOSE 40% GEL 15 GM TUBE PO PRN (03:32)
[2024-03-10] MEDS ORDERED: ONDANSETRON INJ 2 MG/ML 2 ML VIAL IV PRN (03:32)
[2024-03-10] MEDS ORDERED: DEXTROSE 50% 50 ML SYRINGE IV PRN (03:32)
[2024-03-10] MEDS ORDERED: GLUCOSE 10 TAB/TUBE PO PRN (03:32)
[2024-03-10] MEDS: ALBUMIN 25% 25 GM/100 ML VIAL IV ONE (03:51)
[2024-03-10] MEDS: SODIUM CHLORIDE 0.9% 1,000 ML IV SCH (03:52)
--- NOTE | 2024-03-10 07:38 | Hospitalist Progress Note ---
Date of Service March 10, 2024 Assessment & Plan (1) Sepsis due to urinary tract infection: (2) Complicated UTI (urinary tract infection): (3) Frequent UTI: Plan The patient is a 78-year-old female with a past medical history including diabetes mellitus, bladder mass, hypertension, peripheral neuropathy, hypomagnesemia, GERD, hyperlipidemia, history of recurrent UTI, and history of ureteral stone. The patient presents to the emergency department after syncopal episode, mild head trauma, and associated confusion, nausea, vomiting and chills. Patient presents to the emergency department after a syncopal episode at home, while patient was attempting to go to the bathroom, where she fell and did strike the back of her head on a ceramic tile. She did have a second syncopal episode duration of 10 to 15 seconds shortly afterwards. Family reports that she has been not feeling well over the past 1 to 2 days. She has had nausea, vomiting, chills and some mild confusion. She underwent a left ureteral stent exchange with cystoscopy retrograde pyelogram on 03/02/2024. She had been placed on Cipro which she been taking twice a day as directed. #Sepsis/hypotension due to urinary tract infection- - Follow urine culture and sensitivity - Empiric cefepime 2 g IV every 12 hours begun in the ED - Status post normal saline 1 L bolus IV x 2 - Give albumin 25 g IV x 1, placed on NSS at 80 mL/h x 1 L - UTI on 02/24/2024 with pansensitive Pseudomonas - UTI on 01/16/2024 with a Aerococcus - UTI on 09/15/2021 with Klebsiella - UTI on 08/05 and 08/19/2021 with Enterococcus faecalis - Consult urology, as patient had cystoscopy with retrograde pyelogram and left ureteral stent exchange on 03/02/2024 - Of note, patient has an outpatient appointment at [facility] in [place] on 03/12/2024 for consult regarding a potential diverticulum surgery, that will need to be confirmed and/or rearranged #Syncope - in the setting of sepsis, hypotension - CT head / CT C-spine without any acute abnormalities - cont telemetry #Hypertension- - Patient's blood pressure is relatively low at this time hold lisinopril and diltiazem - Fluid resuscitation as noted #Diabetes mellitus- - Holding metformin decrease glargine from 20 to 10 units subcu every morning - Placed on Accu-Cheks with NovoLog SSI Chronic medical issues: Peripheral neuropathy-temporarily holding gabapentin GERD-placed pantoprazole 40 mg IV daily Hyperlipidemia and temporarily have pravastatin Dispo: if BCx neg x48 hrs, will discharge her Admission and Anticipated Discharge Date Admission Date: March 10, 2024 Subjective Admitted yesterday Currently no new complaints Review of Systems Review of Systems: Comprehensive ROS neg Physical Exam Physical Exam: Gen: NAD, lying in bed comfortable HEENT: NC/AT, MMM Lungs: CTAB CVS: s1s2nl, RRR Abd: nl bowel sounds, soft, NT Results & Data Results & Data Vital Signs (Past 12 Hours) Vital Signs Temp Pulse Pulse Resp BP BP Pulse Ox 03/10/24 07:08 74 03/10/24 04:41 75 18 98/49 L 97 03/10/24 04:40 76 16 98/49 L 96 03/10/24 03:32 03/10/24 03:00 75 18 105/53 L 98 03/10/24 02:10 76 03/10/24 02:00 36.6 C 75 18 104/53 L 94 03/10/24 00:06 83 18 109/51 L 98 03/09/24 22:17 75 03/09/24 21:54 35.3 C L 76 18 107/60 96 Pulse Ox O2 Del Method O2 Del Method 03/10/24 07:08 03/10/24 04:41 Room Air 03/10/24 04:40 Room Air 03/10/24 03:32 94 Room Air 03/10/24 03:00 Room Air 03/10/24 02:10 03/10/24 02:00 Room Air 03/10/24 00:06 Room Air 03/09/24 22:17 03/09/24 21:54 Room Air PG Care Time/CCT Total # of Minutes Spent Total Time Spent with Patient: Total time spent is greater than 50% in coordination of care (as documented) at patient's floor/unit and/or counseling patient: Coding Level of Care Code 60053 SUB INP/OBS CARE 3/50MIN Diagnoses Sepsis due to urinary tract infection A41.9; N39.0 Complicated UTI (urinary tract infection) N39.0 Frequent UTI N39.0
[2024-03-10 08:24] LABS: Basophils # (auto) 0.02 K/uL (0.00-0.20); Basophils % (auto) 0.2 %; Eosinophils # (auto) 0.45 K/uL (0.00-0.50); Eosinophils % (auto) 3.8 %; Hematocrit (blood only) 29.9 % (37.0-47.0); Hemoglobin 9.6 g/dl (12.0-16.0); Immature Granulocytes # (auto) 0.07 K/uL (0.01-0.20); Immature Granulocytes % (auto) 0.6 %; Lymphocytes # (auto) 0.98 K/uL (1.20-3.40); Lymphocytes % (auto) 8.2 %; Mean Corpuscular Hemoglobin 28.2 pg (25.0-34.0); Mean Corpuscular Hgb Conc 32.1 g/dL (32.0-36.0); Mean Corpuscular Volume 87.7 fL (80.0-100.0); Mean Platelet Volume 9.7 fL (9.4-12.4); Monocytes # (auto) 0.37 K/uL (0.11-0.59); Monocytes % (auto) 3.1 %; Neutrophils # (auto) 10.01 K/uL (1.40-6.50); Neutrophils % (auto) 84.1 %; Platelet Count 298 K/uL (130-400); RDW Coefficient of Variation 14.2 % (11.5-14.5); RDW Standard Deviation 45.4 fL (36.4-46.3); Red Blood Count 3.41 M/uL (4.20-5.40)
[2024-03-10 08:46] LABS: Albumin Level 3.3 gm/dl (3.4-5.0); BUN Creatinine Ratio 22.3 (10-20); Calcium 8.1 mg/dl (8.6-10.3); Creatinine Clr Calc Pharmacy 34.5 ml/min; Phosphorus 2.8 mg/dl (2.5-4.9); Potassium 4.3 mmol/L (3.5-5.1)
[2024-03-10] MEDS: INSULIN ASPART PER UNIT CHARGE SC SCH (09:14)
[2024-03-10] MEDS: LANTUS PER UNIT CHARGE SQ SCH (09:22)
[2024-03-10] MEDS: PANTOprazole 40 MG/10 ML SYR IV SCH (09:22)
[2024-03-10 09:30] LABS: Estimated Average Glucose 183 mg/dl
--- NOTE | 2024-03-10 10:22 | Urology Consultation ---
Date of Consultation March 10, 2024 Assessment & Plan (1) Ureterovaginal fistula: (2) Complicated UTI (urinary tract infection): Plan 1. Ureterovaginal fistula She has a consultation with a tertiary center Tuesday for definitive repair Absolutely no role for intervention acutely 2. UTIs This is really more of an infectious disease issue as given her fistula she will probably be chronically infected Treat with antibiotics I am not even 100% certain that this is the true underlying pathology behind today's visit, however I think would be appropriate to treat her empirically and I assume her cultures will ultimately show a positive result No real role for intervention or management for the remainder of this hospitalization barring a substantial change, please call us if other issues arise History of Present Illness Attending Physician: Judith Martin MD History of Present Illness This 78-year-old female known to our service 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 She has had prior radiation for cervical cancer He has an appointment in [place] on Tuesday to consider definitive repair of this fistula She reports that yesterday she developed nausea and vomiting This led to generalized ill feeling and ultimately an ER visit She has not had severe urinary symptoms that are out of her normal range She has been afebrile since arrival She has a slight leukocytosis of 11,000 Creatinine is at baseline She has had Pseudomonas in her urine recently and I strongly suspect she will have a positive culture again today Subjectively she reports that she feels drastically improved today She has had no imaging since arrival Allergies Allergy/AdvReac Type Severity Reaction Status Date / Time nitrofurantoin Allergy Intermediate Redness of Verified 03/10/24 01:59 [From Macrobid] Skin Home Medications Medication Instructions Recorded Confirmed Type diltiazem HCl 180 mg 180 mg PO QAM 06/23/21 03/10/24 History capsule,extended release 24 hr (Cardizem CD) lisinopril 20 mg tablet 20 mg PO QAM 06/23/21 03/10/24 History magnesium oxide 400 mg PO BID 06/23/21 03/10/24 History metformin 500 mg tablet 1,000 mg PO BID 06/23/21 03/10/24 History pantoprazole 40 mg tablet,delayed 40 mg PO QAM 06/23/21 03/10/24 History release (Protonix) multivitamin 1 cap PO QAM 07/14/21 03/10/24 History gabapentin 400 mg capsule 400 mg PO TID 01/16/24 03/10/24 History pravastatin 20 mg tablet 20 mg PO QAM 03/09/24 03/10/24 History insulin glargine 100 unit/mL (3 20 unit subcut QAM 03/10/24 03/10/24 History mL) subcutaneous pen (Lantus Solostar U-100 Insulin) Patient History Medical History Bladder mass Osteoporosis GERD (gastroesophageal reflux disease) Sleep apnea no device Family history of reaction to anesthesia SISTER - N/V Nausea and vomiting after administration of anesthetic agent Frequent UTI as of 02/24/24, currently on abx HTN (hypertension) Diabetes NIDDM Cervical cancer hx 1982, hx radiation , and 2 nicole implants Surgical History History of transurethral resection of bladder tumor (TURBT) w/stent placement, 01/17/24, [facility] S/P cystoscopy with ureteral stent placement w/ureteroscopy, bilat. RP, urethral dilation, 2021 History of endoscopy History of colonoscopy History of surgery nicole implants for hx cervical cancer History of cholecystectomy Family History Grandmother Family history of diabetes mellitus Mother Pre-diabetes Social History Smoking Status: Never smoker Second Hand Exposure: No; Do You Dip or Chew Tobacco: No; Hx Alcohol Use: No Hx Substance Use: No Preferred Language: German Communication Ability: Effective Student Worker Required: No Beliefs That Will Affect Care: None marital status: / Current Living Situation: Family Current Living Situation Comment: home alone current occupational status: retired Other Information That Helps Us Care for You: No Feels Safe at Home: Yes Safety Concerns: Feels Safe At This Time Assistive Devices: None Review of Systems Review of Systems: The patient was initially not responsive during examination, but woke up, and was very alert, responsive, and had none of the symptoms as noted above all been resolved. Physical Exam Constitutional: well developed and well nourished Neck: neck nontender Respiratory: normal respiratory effort; no respiratory distress and does not use accessory muscles Cardiovascular: Rate/Rhythm: regular rate Vessels: radial pulses present Extremities: no edema Gastrointestinal (Abdomen): Inspection/Auscultation: abdomen normal to inspection Percussion/Palpation: abdomen soft; abdomen nontender and no guarding Musculoskeletal: Head/Neck/Chest: normocephalic and head atraumatic Extremities: extremities normal to inspection Skin: no rashes and no lesions Trauma: no evidence of skin trauma Neurologic: awake; not obtunded Speech / Cognition: normal speech Motor/Sensory: no tremor Psychiatric: Orientation: alert and oriented x 3 Lymphatic: no lymphadenopathy Results & Data Vital Signs (Past 12 Hours) Vital Signs Temp Pulse Pulse Resp BP Pulse Ox Pulse Ox 03/10/24 07:08 74 03/10/24 04:41 75 18 98/49 L 97 03/10/24 04:40 76 16 98/49 L 96 03/10/24 03:32 94 03/10/24 03:00 75 18 105/53 L 98 03/10/24 02:10 76 03/10/24 02:00 36.6 C 75 18 104/53 L 94 03/10/24 00:06 83 18 109/51 L 98 O2 Del Method O2 Del Method 03/10/24 07:08 03/10/24 04:41 Room Air 03/10/24 04:40 Room Air 03/10/24 03:32 Room Air 03/10/24 03:00 Room Air 03/10/24 02:10 03/10/24 02:00 Room Air 03/10/24 00:06 Room Air PG Care Time/CCT Total # of Minutes Spent Total Time Spent with Patient: Total time spent is greater than 50% in coordination of care (as documented) at patient's floor/unit and/or counseling patient: Coding Level of Care Code 70065 IN/OBS CONSULT LVL 4,60M Diagnoses Ureterovaginal fistula N82.1 Complicated UTI (urinary tract infection) N39.0
[2024-03-10] MEDS: CEFEPIME 2000MG 2,000 MG/20 ML SYR IV SCH (12:55)
[2024-03-11 06:59] LABS: Basophils # (auto) 0.02 K/uL (0.00-0.20); Basophils % (auto) 0.2 %; Eosinophils # (auto) 0.96 K/uL (0.00-0.50); Eosinophils % (auto) 11.4 %; Hematocrit (blood only) 29.7 % (37.0-47.0); Hemoglobin 9.6 g/dl (12.0-16.0); Immature Granulocytes # (auto) 0.03 K/uL (0.01-0.20); Immature Granulocytes % (auto) 0.4 %; Lymphocytes # (auto) 1.19 K/uL (1.20-3.40); Lymphocytes % (auto) 14.2 %; Mean Corpuscular Hemoglobin 28.8 pg (25.0-34.0); Mean Corpuscular Hgb Conc 32.3 g/dL (32.0-36.0); Mean Corpuscular Volume 89.2 fL (80.0-100.0); Mean Platelet Volume 9.9 fL (9.4-12.4); Monocytes # (auto) 0.42 K/uL (0.11-0.59); Neutrophils # (auto) 5.77 K/uL (1.40-6.50); Neutrophils % (auto) 68.8 %; Platelet Count 296 K/uL (130-400); RDW Coefficient of Variation 14.3 % (11.5-14.5); RDW Standard Deviation 46.5 fL (36.4-46.3); Red Blood Count 3.33 M/uL (4.20-5.40); White Blood Count 8.39 K/ul (4.8-10.8)
[2024-03-11 07:07] VITALS: BP 131/67
[2024-03-11 07:27] LABS: Albumin Level 3.5 gm/dl (3.4-5.0); BUN Creatinine Ratio 18.3 (10-20); Calcium 8.7 mg/dl (8.6-10.3); Creatinine Clr Calc Pharmacy 42.4 ml/min; Phosphorus 2.7 mg/dl (2.5-4.9); Potassium 4.5 mmol/L (3.5-5.1)
--- NOTE | 2024-03-11 12:13 | XRay Report ---
XR ankle LT min 3V routine CLINICAL HISTORY: recent fall, r/o fx COMPARISON: None FINDINGS: Alignment of the left ankle is anatomic. There is no acute fracture within the distal left tibia or fibula. Talar dome is intact. There are no osseous lesions. Joint spaces are preserved. The re is mild posterior and plantar calcaneal spurring. Soft tissue swelling of the plantar hindfoot is present. A 5 mm ossific/calcific density along the plantar aspect of the posterior calcaneus is noted . IMPRESSION: 1. Anatomic alignment of left ankle. No distal left tibial or fibular fracture. 2. Soft tissue swelling of the plantar hindfoot. 5 mm ossific/calcific density along the plantar aspe ct of the posterior calcaneus. This may be chronic although a small acute fracture fragment could caroline ear similar. This could be correlated with point tenderness. ACT 112: Negative or not required by law. Electronically signed by: Efrain Bella M.D. 03/11/2024 12:11 PM
--- NOTE | 2024-03-11 12:18 | XRay Report ---
XR foot LT min 3V routine CLINICAL HISTORY: recent fall, r/o fx COMPARISON: None FINDINGS: Tarsometatarsal joints are intact. There is a small 4 mm ossific/calcific density along th e plantar calcaneus. There may be posterior heel soft tissue swelling. Cortical irregularity and luce ncies within the neck and heads of the second through fifth metatarsals are noted. IMPRESSION: 1. Cortical irregularity and lucencies within the heads and necks of the second through fifth metatar sals. The findings favor acute minimally displaced fractures. A CT of the left foot could be obtained for further evaluation. 2. 4 mm of/calcific density along the plantar calcaneus. This is likely chronic although an acute fra cture fragment could appear similar. This can be assessed on the CT. ACT 112: Negative or not required by law. Electronically signed by: Efrain Bella M.D. 03/11/2024 12:16 PM
--- NOTE | 2024-03-11 15:22 | CT Scan Report ---
CT left foot without contrast History: Pain/weakness Comparison: None Technique: CT performed of the left foot without IV contrast. Dose reduction techniques were achieved by using automatic exposure control and/or adjustment of mA and/or kV according to patient size and/or use of iterative reconstruction technique. Findings: Nondisplaced fractures are seen at the metaphyses of the distal second, third, fourth, and fifth metatarsals. The Lisfranc joint appears normally in alignment. The first metatarsal appears grossly intact. At the anterior process of the calcaneus, there appears to be a thin, curvilinear nondisplaced fracture line extending through the tip. Remainder of the calcaneus appears intact. Plantar calcaneal and Achilles insertional enthesophyte seen. The bones are osteopenic. Joint spaces are normally aligned. No visualized soft tissue abnormality. No aggressive osseous lesion. Impression: Nondisplaced fractures involving the distal metaphyses of the 2nd through 5th metatarsal. Tiny, nondisplaced fracture through the tip of the anterior process of the calcaneus, located about the lateral aspect of the foot. Electronically signed by Harsh Ann 03-11-2024 3:22 PM
[2024-03-11 15:33] VITALS: PULSE 76; RESP 20; TEMP 97.9; O2SAT 96
--- NOTE | 2024-03-11 15:44 | Discharge Summary ---
Discharge Summary Date of Service March 11, 2024 Principal Dx & Hospital Course #1 = Principal Diagnosis (1) Sepsis due to urinary tract infection: (2) Complicated UTI (urinary tract infection): (3) Frequent UTI: Plan The patient is a 78-year-old female with a past medical history including diabetes mellitus, bladder mass, hypertension, peripheral neuropathy, hypomagnesemia, GERD, hyperlipidemia, history of recurrent UTI, and history of ureteral stone. The patient presents to the emergency department after syncopal episode, mild head trauma, and associated confusion, nausea, vomiting and chills. Patient presents to the emergency department after a syncopal episode at home, while patient was attempting to go to the bathroom, where she fell and did strike the back of her head on a ceramic tile. She did have a second syncopal episode duration of 10 to 15 seconds shortly afterwards. Family reports that she has been not feeling well over the past 1 to 2 days. She has had nausea, vomiting, chills and some mild confusion. She underwent a left ureteral stent exchange with cystoscopy retrograde pyelogram on 03/02/2024. She had been placed on Cipro which she been taking twice a day as directed. #Sepsis/hypotension due to urinary tract infection- - UCx growing E faecium, final sensitivities pending, pt understands to follow final results with Urology , discharging pt on Linezolid BID x10 days - BCx neg x24 hrs, pt understands to follow final results with Urology. She also understands to go to the hospital if she is develops fevers / chills, and overall sick - Status post normal saline 1 L bolus IV x 2 - Give albumin 25 g IV x 1, placed on NSS at 80 mL/h x 1 L - UTI on 02/24/2024 with pansensitive Pseudomonas - UTI on 01/16/2024 with a Aerococcus - UTI on 09/15/2021 with Klebsiella - UTI on 08/05 and 08/19/2021 with Enterococcus faecalis - Consult urology, as patient had cystoscopy with retrograde pyelogram and left ureteral stent exchange on 03/02/2024 - Of note, patient has an outpatient appointment at [facility] in [place] on 03/12/2024 for consult regarding a potential fistula surgery #Syncope - in the setting of sepsis, hypotension - CT head / CT C-spine without any acute abnormalities #Hypertension- - Patient's blood pressure is relatively low at this time hold lisinopril and diltiazem - Fluid resuscitation as noted #Diabetes mellitus- - Holding metformin decrease glargine from 20 to 10 units subcu every morning - Placed on Accu-Cheks with NovoLog SSI Chronic medical issues: Peripheral neuropathy-temporarily holding gabapentin GERD-placed pantoprazole 40 mg IV daily Hyperlipidemia and temporarily have pravastatin Dispo: given appointment at [facility], will discharge her today. Pt and family understands that this is an unusual circumstances, thus if pt shows any signs of worsening, pt should be taken to the nearest ER. Currently pt is hemodynamically stable for discharge. Admission HPI Per Admitting Provider The patient is a 78-year-old female with a past medical history including diabetes mellitus, bladder mass, hypertension, peripheral neuropathy, hypomagnesemia, GERD, hyperlipidemia, history of recurrent UTI, and history of ureteral stone. The patient presents to the emergency department after syncopal episode, mild head trauma, and associated confusion, nausea, vomiting and chills. Discharge Exam Gen: NAD, lying in bed comfortable HEENT: NC/AT, MMM Lungs: CTAB CVS: [id number], RRR Abd: nl bowel sounds, soft, NT Discharge Plan Discharge Items Patient Disposition: Home - Self-Care Reason For Visit: SEPSIS DUE TO UTI/STENT Discharge Diagnosis: Complicated UTI Activity: As commented below Activity Comment: Weightbearing as tolerated on the left foot Non-emergency contact: Urologist Call non-emergency contact if: you have any medication questions and your symptoms worsen Follow-up/Referrals: Harsh Johnson MD [Family Provider] - Yonatan Varma MD [Surgeon] - Suad Trevino CRNP [Primary Care Provider] - Diet: Carb Consistent or DM2 and Heart Healthy Addtl Attending Provider Instructions: 1. Please follow up your blood culture results with Dr. Johnson. If positive, please return to the hospital 2. Please follow up your final urine culture with Dr. Johnson. 3. Please follow up with your primary care doctor in about 7 to 10 days. 4. Please follow up with Dr. Varma (orthopedics) in one week for further ma nagement of your metatarsal fractures. Current recommendation is postop shoe, walker and weightbearing as tolerated 5. If you feel unwell, develop fevers / chills, lethargy, please get evaluated in a hospital Pending Studies at Discharge: Yes Studies:: Final UCx sensitivities, BCx results Stand-Alone Forms: [facility], Smoking Cessation Medications and DC Order Prescriptions: New linezolid 600 mg tablet 600 mg PO BID 10 Days Qty: 20 0RF (DME) walker Misc See Rx Instructions .Route Qty: 1 0RF Rx Instructions: As directed Continued metformin 500 mg tablet 1,000 mg PO BID diltiazem HCl [Cardizem CD] 180 mg capsule,extended release 24hr 180 mg PO QAM lisinopril 20 mg tablet 20 mg PO QAM pantoprazole [Protonix] 40 mg tablet,delayed release (DR/EC) 40 mg PO QAM magnesium oxide 400 mg magnesium capsule 400 mg PO BID multivitamin Capsule 1 cap PO QAM pravastatin 20 mg tablet 20 mg PO QAM insulin glargine [Lantus Solostar U-100 Insulin] 100 unit/mL (3 mL) insulin pen 20 unit subcut QAM Patient Comments: takes 20 units QAM gabapentin 400 mg capsule 400 mg PO TID Discharge Orders: Discharge Order (Routine); Ordered 03/11/24 Ordered By: Judith Montgomery/Other Patient Handouts: Managing Type 2 Diabetes Admission Data Admit Date/Time: 03/10/24 02:33 Attending Provider: Judith Martin Admit Provider: Tian King Primary Care Provider: Suad Trevino Other Providers: Harsh Johnson; Tian King Hospital Stay Data Consultations 03/10/24 01:43 ED Decision to Admit Stat 03/10/24 03:32 Consult Urology Routine Diagnostic Imagining Performed 03/09/24 23:32 CT cervical spine wo con Stat CT head/brain wo con Stat 03/11/24 14:00 CT foot LT wo con Stat Discharge Instructions Given to Patient (Per Discharging Provider) 1. Please follow up your blood culture results with Dr. Johnson. If positive, please return to the hospital 2. Please follow up your final urine culture with Dr. Johnson. 3. Please follow up with your primary care doctor in about 7 to 10 days. 4. Please follow up with Dr. Varma (orthopedics) in one week for further management of your metatarsal fractures. Current recommendation is postop shoe, walker and weightbearing as tolerated 5. If you feel unwell, develop fevers / chills, lethargy, please get evaluated in a hospital Total Time Total Time Spent Total Time Spent (In Minutes): 50 Coding Level of Care Code 41226 INP/OBS DISCH >30 MIN Diagnoses Sepsis due to urinary tract infection A41.9; N39.0 Complicated UTI (urinary tract infection) N39.0 Frequent UTI N39.0
[2024-03-11] MEDS: LINEZOLID 600 MG TAB PO ONE (16:47)
--- NOTE | 2024-03-12 09:03 | Electrocardiogram Report ---
Test Reason : Blood Pressure : */* mmHG Vent. Rate : 77 BPM Atrial Rate : 77 BPM P-R Int : 132 ms QRS Dur : 82 ms QT Int : 388 ms P-R-T Axes : -10 17 14 degrees QTcB Int : 439 ms Normal sinus rhythm Normal ECG When compared with ECG of 16-Jan-2024 14:37, Premature ventricular complexes are no longer Present Confirmed by Justyn Beyer ([id number]) on 03/12/2024 9:03:35 AM Referred By: REFERRED SELF Confirmed By: Justyn Beyer
== END 2024-03-11 17:50 | disposition home or self-care (01) | DRG 872 ==
LOC: ED 22:10 → EDINP 03-10 02:33 → SUATTDRO 03-10 02:33 → 2S 03-10 03:32

== ENCOUNTER 2024-03-14 22:47 | Inpatient (IN) ==
[2024-03-14 23:57] LABS: Basophils # (auto) 0.04 K/uL (0.00-0.20); Basophils % (auto) 0.5 %; Eosinophils # (auto) 1.22 K/uL (0.00-0.50); Eosinophils % (auto) 14.6 %; Hematocrit (blood only) 30.6 % (37.0-47.0); Hemoglobin 9.8 g/dl (12.0-16.0); Immature Granulocytes # (auto) 0.03 K/uL (0.01-0.20); Immature Granulocytes % (auto) 0.4 %; Lymphocytes # (auto) 2.12 K/uL (1.20-3.40); Lymphocytes % (auto) 25.3 %; Mean Corpuscular Hemoglobin 28.1 pg (25.0-34.0); Mean Corpuscular Volume 87.7 fL (80.0-100.0); Mean Platelet Volume 9.4 fL (9.4-12.4); Monocytes # (auto) 0.54 K/uL (0.11-0.59); Monocytes % (auto) 6.4 %; Neutrophils # (auto) 4.43 K/uL (1.40-6.50); Neutrophils % (auto) 52.8 %; Platelet Count 305 K/uL (130-400); RDW Coefficient of Variation 14.3 % (11.5-14.5); RDW Standard Deviation 45.6 fL (36.4-46.3); Red Blood Count 3.49 M/uL (4.20-5.40); White Blood Count 8.38 K/ul (4.8-10.8)
[2024-03-15 00:16] LABS: Albumin Globulin Ratio 1.1 (0.9-2); Albumin Level 3.7 gm/dl (3.4-5.0); BUN Creatinine Ratio 15.2 (10-20); Bilirubin,Total 0.3 mg/dl (0.2-1.0); Creatinine Clr Calc Pharmacy 48.2 ml/min; Globulin 3.4 gm/dl (2.5-4.0); Potassium 3.8 mmol/L (3.5-5.1); Total Protein 7.1 gm/dl (6.0-8.3)
[2024-03-15] MEDS: SODIUM CHLORIDE 0.9% 1,000 ML IV ONE (00:25)
[2024-03-15] MEDS: ONDANSETRON INJ 2 MG/ML 2 ML VIAL IV STA (00:25)
[2024-03-15 01:17] LABS: Appearance Urine Cloudy (Clear); Bacteria Urine Automated None Seen (None Seen); Bilirubin Urine Negative (Negative); Blood Urine 3+ (Negative); Calcium Oxalate Crystals Urine Present (None Prsent); Cast Urine Automated 0-2 /lpf (0-2); Color Urine Yellow; Epithelial Cell Urine Auto 0-2 /hpf (0-2); Glucose Urine UA Negative (Negative); Ketones Urine Negative (Negative); Leukocyte Esterase Urine 3+ (Negative); Nitrite Urine Negative (Negative); Protein Urine 2+ (Negative); RBC Urine Automated >20 /hpf (0-2); Specific Gravity Urine 1.018 (1.000-1.030); Urobilinogen Urine Negative (Negative); WBC Urine Automated >50 /hpf (0-5); pH Urine 5.5 (4.5-7.5)
[2024-03-15] MEDS: DAPTOmycin 325 MG in SYRINGE 0 ML IV STA (01:48)
[2024-03-15 01:49] LABS: Adenovirus PCR Not Detected (NotDetected); Bordetella parapertussis PCR Not Detected (NotDetected); Bordetella pertussis PCR Not Detected (NotDetected); Chlamydia pneumoniae PCR Not Detected (NotDetected); Coronavirus 229E PCR Not Detected (NotDetected); Coronavirus CoV-2 (COVID19)PCR Not Detected (NotDetected); Coronavirus HKU1 PCR Not Detected (NotDetected); Coronavirus NL63 PCR Not Detected (NotDetected); Coronavirus OC43PCR Not Detected (NotDetected); Human Metapneumovirus PCR Not Detected (NotDetected); Influenza A PCR Not Detected (NotDetected); Influenza B PCR Not Detected (NotDetected); Mycoplasma pneumoniae PCR Not Detected (NotDetected); Parainfluenza Virus 1 PCR Not Detected (NotDetected); Parainfluenza Virus 2 PCR Not Detected (NotDetected); Parainfluenza Virus 3 PCR Not Detected (NotDetected); Parainfluenza Virus 4 PCR Not Detected (NotDetected); Respiratory Syncytial VirusPCR Not Detected (NotDetected); Rhinovirus/Enterovirus PCR Not Detected (NotDetected)
--- NOTE | 2024-03-15 04:41 | History & Physical Report ---
Date of Service March 15, 2024 Assessment & Plan (1) Complicated UTI (urinary tract infection): (2) Frequent UTI: (3) Ureterovaginal fistula: (4) Diabetes: (5) Hypertension: (6) GERD (gastroesophageal reflux disease): (7) HLD (hyperlipidemia): (8) Peripheral neuropathy: Plan 78 yo female PMHx T2DM on insulin, HTN, GERD, HLD, peripheral neuropathy, recurrent UTI and L-ureterovaginal fistula admitted for nausea and diarrhea. #Urinary Tract Infection Urine culture sent - follow Continue daptomycin, ER physician discussed with pharmacy Monitor for signs of sepsis Given recurrence of UTIs and definitive treatment of fistula likely not for at least one month, would consider ID consult re: suppressive abx until closure of fistula is achieved CBC, CMP, Mag ordered with AM labs UTI on 03/10/24 with relatively resistant Enterococcus faecalis - currently being treated for this UTI on 02/24/2024 with pansensitive Pseudomonas UTI on 01/16/2024 with a Aerococcus UTI on 09/15/2021 with Klebsiella UTI on 08/05 and 08/19/2021 with Enterococcus faecalis #Ureterovaginal fistula as above, would consider ID consult re: suppressive antibiotics #T2DM home meds held last A1c 8.0 on 03/10/24 glargine 10U BID (home dosing is 20U daily) ISS #HTN continue diltiazem continue lisinopril #HLD hold statin 2/2 daptomycin use #GERD continue Protonix #Peripheral neuropathy continue gabapentin FENGI: T2DM diet, heart healthy Code status: full DVT prophylaxis: Lovenox Isolation: none Disposition: medical History of Present Illness Primary Care Provider: MACRINA Ramirez 78 yo female PMHx T2DM on insulin, HTN, GERD, HLD, peripheral neuropathy, recurrent UTI and L-ureterovaginal fistula admitted for nausea and diarrhea. Per patient and her son, she has a pattern over the last few months of developing nausea and vomiting and subsequently developing sepsis with a urinary source. She was recently discharged from [facility] on 03/11/24 after developing sepsis 2/2 urinary source. Her urine culture at that admission grew Enterococcus faecium that had an extensive resistance pattern but was susceptible to linezolid. She was discharged on linezolid. During that same admission she was diagnosed with m etatarsal fracture of the left foot. She is currently in a hard shoe for this. She was recently diagnosed with a L-ureterovaginal fistula 03/02/[address] Johnson. She was seen on 03/12/24 by urogyenecology at [facility] for consultation re: reconstruction. She will undergo cystoscopy there at the end of this month in order to plan for this procedure. At the time of examination, the patient was resting comfortably without acute complaints. ED course: VSS, Labs largely unremarkable 1L NSS Zofran IV x1 Started on Daptomycin Allergies Allergy/AdvReac Type Severity Reaction Status Date / Time nitrofurantoin Allergy Intermediate Redness of Verified 03/10/24 01:59 [From Macrobid] Skin Home Medications Medication Instructions Recorded Confirmed Type diltiazem HCl 180 mg 180 mg PO QAM 06/23/21 03/14/24 History capsule,extended release 24 hr (Cardizem CD) lisinopril 20 mg tablet 20 mg PO QAM 06/23/21 03/14/24 History magnesium oxide 400 mg PO BID 06/23/21 03/14/24 History metformin 500 mg tablet 1,000 mg PO BID 06/23/21 03/14/24 History pantoprazole 40 mg tablet,delayed 40 mg PO QAM 06/23/21 03/14/24 History release (Protonix) multivitamin 1 cap PO QAM 07/14/21 03/14/24 History gabapentin 400 mg capsule 400 mg PO TID 01/16/24 03/14/24 History pravastatin 20 mg tablet 20 mg PO QAM 03/09/24 03/14/24 History insulin glargine 100 unit/mL (3 20 unit subcut QAM 03/10/24 03/14/24 History mL) subcutaneous pen (Lantus Solostar U-100 Insulin) linezolid 600 mg tablet 600 mg PO BID 10 days #20 tabs 03/11/24 03/14/24 Rx walker #1 ea 03/11/24 03/14/24 Rx Past Med/Surg History Problem List (Updated 03/15/24 @ 04:54 by Karl Bonds DO) Peripheral neuropathy HLD (hyperlipidemia) Complicated UTI (urinary tract infection) (Acute) Ureterovaginal fistula Pelvic mass Weakness (Acute) Bladder mass Hypertension Diabetes Prolapse of female pelvic organs Frequent UTI Medical History (Updated 03/15/24 @ 04:54 by Karl Bonds DO) Syncope and collapse Closed head injury Severe sepsis Sepsis due to urinary tract infection Encounter for pre-operative examination Ureteral obstruction, left Gross hematuria Bladder mass Osteoporosis GERD (gastroesophageal reflux disease) Sleep apnea no device Family history of reaction to anesthesia SISTER - N/V Nausea and vomiting after administration of anesthetic agent Frequent UTI as of 02/24/24, currently on abx HTN (hypertension) Diabetes NIDDM Cervical cancer hx 1982, hx radiation , and 2 nicole implants Surgical History History of transurethral resection of bladder tumor (TURBT) w/stent placement, 01/17/24, [facility] S/P cystoscopy with ureteral stent placement w/ureteroscopy, bilat. 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 Beliefs That Will Affect Care: None marital status: / Current Living Situation: Alone Current Living Situation Comment: home alone current occupational status: retired Other Information That Helps Us Care for You: No Feels Safe at Home: Yes Safety Concerns: Feels Safe At This Time Assistive Devices: Glasses Assistive Devices Comment: straight cath self Review of Systems Review of Systems: reviewed, per HPI Physical Exam Physical Exam: Constitutional: well-appearing, no acute distress HEENT: NCAT, no conjunctival injection CV: regular rhythm, no murmur appreciated, extremities well-perfused, no LE edema Resp: CTABL, no wheezes/rales/rhonchi appreciated, no increased work of breathing GI: soft, nondistended, nontender, BS normoactive MSK: L foot in hard shoe Skin: warm, dry, no rash appreciated Neuro: alert, oriented, no focal neurologic deficit appreciated Results & Data Results & Data Vital Signs (Past 12 Hours) Vital Signs Temp Pulse Pulse Resp BP BP Pulse Ox 03/15/24 03:29 69 03/15/24 03:00 71 18 140/65 98 03/15/24 02:30 63 16 136/69 95 03/15/24 02:00 64 20 141/66 H 95 03/15/24 01:30 64 23 155/62 H 98 03/15/24 01:00 66 18 147/91 H 96 03/15/24 00:31 62 18 153/65 H 99 03/15/24 00:15 36.8 C 67 17 167/73 H 98 03/15/24 00:14 68 19 98 03/14/24 23:31 67 03/14/24 23:30 67 17 177/60 H 98 03/14/24 22:48 36.5 C 68 16 147/65 H 98 O2 Del Method 03/15/24 03:29 03/15/24 03:00 Room Air 03/15/24 02:30 Room Air 03/15/24 02:00 Room Air 03/15/24 01:30 Room Air 03/15/24 01:00 Room Air 03/15/24 00:31 Room Air 03/15/24 00:15 Room Air 03/15/24 00:14 Room Air 03/14/24 23:31 03/14/24 23:30 Room Air 03/14/24 22:48 Room Air Laboratory Results Laboratory Results WBC 8.38 K/ul (4.8-10.8) 03/14/24 23:30 RBC 3.49 M/uL (4.20-5.40) L 03/14/24 23:30 Hgb 9.8 g/dl (12.0-16.0) L 03/14/24 23:30 Hct 30.6 % (37.0-47.0) L 03/14/24 23:30 MCV 87.7 fL (80.0-100.0) 03/14/24 23:30 MCH 28.1 pg (25.0-34.0) 03/14/24 23:30 MCHC 32.0 g/dL (32.0-36.0) 03/14/24 23:30 RDW Std Deviation 45.6 fL (36.4-46.3) 03/14/24 23:30 RDW Coeff of Anders 14.3 % (11.5-14.5) 03/14/24 23: Plt Count 305 K/uL (130-400) 03/14/24 23:30 MPV 9.4 fL (9.4-12.4) 03/14/24 23: Immature Gran % (Auto) 0.4 % 03/14/24 23:30 Neut % (Auto) 52.8 % 03/14/24 23:30 Lymph % (Auto) 25.3 % 03/14/24 23:30 [place] % (Auto) 6.4 % 03/14/24 23: Eos % (Auto) 14.6 % 03/14/24 23: Baso % (Auto) 0.5 % 03/14/24 23:30 Neut # (Auto) 4.43 K/uL (1.40-6.50) 03/14/24 23:30 Lymph # (Auto) 2.12 K/uL (1.20-3.40) 03/14/24 23:30 [place] # (Auto) 0.54 K/uL (0.11-0.59) 03/14/24 23:30 Eos # (Auto) 1.22 K/uL (0.00-0.50) H 03/14/24 23:30 Baso # (Auto) 0.04 K/uL (0.00-0.20) 03/14/24 23:30 Immature Gran # (Auto) 0.03 K/uL (0.01-0.20) 03/14/24 23:30 Sodium 138 mmol/L (136-145) 03/14/24 23:30 Potassium 3.8 mmol/L (3.5-5.1) 03/14/24 23: Chloride 104 mmol/L (98-107) 03/14/24 23: Carbon Dioxide 25 mmol/L (21-32) 03/14/24 23:30 Anion Gap 9 (3-11) 03/14/24 23:30 BUN 14 mg/dl (6-23) 03/14/24 23: Creatinine 0.92 mg/dl (0.6-1.2) 03/14/24 23:30 Est Cr Clr Drug Dosing 48.2 ml/min 03/14/24 23:30 eGFR 64.13 03/14/24 23:30 BUN/Creatinine Ratio 15.2 (10-20) 03/14/24 23:30 Glucose 100 mg/dl (70-99(Fasting)) H 03/14/24 23:30 Lactate 1.3 mmol/L (0.4-2.0) 03/15/24 01:08 Calcium 9.0 mg/dl (8.6-10.3) 03/14/24 23:30 Total Bilirubin 0.3 mg/dl (0.2-1.0) 03/14/24 23:30 AST 9 U/L (13-39) L 03/14/24 23:30 ALT 7 U/L (7-52) 03/14/24 23:30 Alkaline Phosphatase 39 U/L (34-104) 03/14/24 23:30 Total Protein 7.1 gm/dl (6.0-8.3) 03/14/24 23:30 Albumin 3.7 gm/dl (3.4-5.0) 03/14/24 23:30 Globulin 3.4 gm/dl (2.5-4.0) 03/14/24 23:30 Albumin/Globulin Ratio 1.1 (0.9-2) 03/14/24 23:30 Procalcitonin 0.11 ng/ml (0-0.5) 03/14/24 23:30 Urine Color Yellow 03/15/24 00:35 Urine Appearance Cloudy (Clear) A 03/15/24 00:35 Urine pH 5.5 (4.5-7.5) 03/15/24 00:35 Ur Specific [place] 1.018 (1.000-1.030) 03/15/24 00:35 Urine Protein 2+ (Negative) H 03/15/24 00:35 Urine Glucose (UA) Negative (Negative) 03/15/24 00:35 Urine Ketones Negative (Negative) 03/15/24 00:35 Urine Blood 3+ (Negative) H 03/15/24 00:35 Urine Nitrite Negative (Negative) 03/15/24 00:35 Urine Bilirubin Negative (Negative) 03/15/24 00:35 Urine Urobilinogen Negative (Negative) 03/15/24 00:35 Ur Leukocyte Esterase 3+ (Negative) H 03/15/24 00:35 Urine WBC (Auto) >50 /hpf (0-5) H 03/15/24 00:35 Urine RBC (Auto) >20 /hpf (0-2) H 03/15/24 00:35 U Hyaline Cast (Auto) 0-2 /lpf (0-2) 03/15/24 00:35 U Epithel Cells (Auto) 0-2 /hpf (0-2) 03/15/24 00:35 Urine Bacteria (Auto) None Seen (None Seen) 03/15/24 00:35 Calcium Oxalate Crystal Present (None Prsent) A 03/15/24 00:35 Urine Yeast Present (None Prsent) A 03/15/24 00:35 Adenovirus (PCR) Not Detected (NotDetected) 03/15/24 00:35 B. pertussis DNA (PCR) Not Detected (NotDetected) 03/15/24 00:35 B.parapertussis DNA PCR Not Detected (NotDetected) 03/15/24 00:35 C. pneumoniae DNA (PCR) Not Detected (NotDetected) 03/15/24 00:35 Coronavirus OC43 (PCR) Not Detected (NotDetected) 03/15/24 00:35 Coronavirus HKU1 (PCR) Not Detected (NotDetected) 03/15/24 00:35 Coronavirus 229E (PCR) Not Detected (NotDetected) 03/15/24 00:35 SARS-CoV-2 (PCR) Not Detected (NotDetected) 03/15/24 00:35 Coronavirus NL63 (PCR) Not Detected (NotDetected) 03/15/24 00:35 Human Metapneumovir PCR Not Detected (NotDetected) 03/15/24 00:35 Influenza Type A (PCR) Not Detected (NotDetected) 03/15/24 00:35 Influenza Type B (PCR) Not Detected (NotDetected) 03/15/24 00:35 M. pneumoniae (PCR) Not Detected (NotDetected) 03/15/24 00:35 Parainfluenza 1 (PCR) Not Detected (NotDetected) 03/15/24 00:35 Parainfluenza 2 (PCR) Not Detected (NotDetected) 03/15/24 00:35 Parainfluenza 3 (PCR) Not Detected (NotDetected) 03/15/24 00:35 Parainfluenza 4 (PCR) Not Detected (NotDetected) 03/15/24 00:35 RSV (PCR) Not Detected (NotDetected) 03/15/24 00:35 Entero/Rhino (PCR) Not Detected (NotDetected) 03/15/24 00:35 Code Status & VTE Plan VTE Prophylaxis Plan VTE Prophylaxis will be ordered: Yes Supervising Physician Co-Signing Physician Notes Patient discussed with ER provider, seen and examined, chart reviewed, case discussed with Dr. Bonds and I agree with the assessment and plan as above. In brief, patient is a 78yo female with history of ureterovaginal fistula presenting with complicated UTI. On exam she is afebrile and HD stable, non-toxic in appearance Resting comfortably Skin intact MMM, Neck supple +S1/S2, regular, no m/r/g CTA Abdomen soft, NT/ND Ext warm and well perfused Labs and images reviewed Assessment/Plan Complicated UTI, no sepsis present -Daptomycin per review of prior culture data and discussion with ER/Pharmacy Patient is already set up for additional workup and management of her fistula which should ideally help alleviate her frequent UTIs Remainder as above Resident Activity Tracking Resident Involvement: Resident Care Provided Care Provided: Adult Hospital Medicine
[2024-03-15] MEDS ORDERED: MAGNESIUM HYDROXIDE SUSP 30 ML UDC PO PRN (06:04)
[2024-03-15] MEDS ORDERED: CARBOHYDRATES FOR HYPOGLYCEMIA PO PRN (06:04)
[2024-03-15] MEDS ORDERED: ONDANSETRON INJ 2 MG/ML 2 ML VIAL IV PRN (06:04)
[2024-03-15] MEDS ORDERED: ACETAMINOPHEN 325 MG TAB PO PRN (06:04)
[2024-03-15] MEDS ORDERED: DEXTROSE 50% 50 ML SYRINGE IV PRN (06:04)
[2024-03-15] MEDS ORDERED: MELATONIN 3 MG TAB PO PRN (06:04)
[2024-03-15] MEDS ORDERED: GLUCOSE 40% GEL 15 GM TUBE PO PRN (06:04)
[2024-03-15] MEDS ORDERED: GLUCOSE 10 TAB/TUBE PO PRN (06:04)
[2024-03-15] MEDS ORDERED: POLYETHYLENE (MIRALAX) 17 GM PACK PO PRN (06:04)
[2024-03-15] MEDS ORDERED: ALUMINUM/MAGNESIUM SUSP 30 ML UDC PO PRN (06:04)
[2024-03-15] MEDS ORDERED: GLUCAGON FOR INJ 1 MG VIAL SQ PRN (06:04)
--- NOTE | 2024-03-15 06:08 | Emergency Department Note ---
Impression & Plan Ureterovaginal fistula, Complicated UTI (urinary tract infection) ED Provider Note CHIEF COMPLAINT: nausea, vomiting diarrhea, possible UTI HISTORY OF PRESENT ILLNESS: This 78-year-old female patient past medical history of ureterovaginal fistula, peripheral neuropathy, hyperlipidemia, complicated UTIs, hypertension, diabetes presents to the emergency department with complaints of nausea, vomiting and diarrhea. The patient states this is how her urinary tract infections typically present themselves. Son states this has happened in the past, the patient became hyponatremic, weak and fell, breaking her foot. He was concerned enough to not let her go to sleep this evening. Patient does self catheterize as she is not able to adequately empty the bladder. Son states she does dribble constantly through the vagina. She was recently hospitalized last week, discharged on linezolid based on Enterococcus sensitivities on urinary cultures and discharged to follow-up with urology at [facility]. Son states there is a date at the end of the month for the patient to have her "preliminary surgery" involving a cystoscopy and bladder studies. True reconstructive surgery and definitive surgery for the fistula has not yet been scheduled. REVIEW OF SYSTEMS: A review of systems was performed with positives and pertinent negatives listed in the history of present illness. 10 systems were reviewed and are otherwise negative. ALLERGIES: see below MEDICATIONS: see below PMH: see below SOCIAL HISTORY: see below DDx: UTI, sepsis, viral gastroenteritis, dehydration, bowel obstruction among others. PHYSICAL EXAM: Vital signs reviewed. General: Chronically ill-appearing 78-year-old female, in no significant distress. HEENT: No scleral icterus, PERRLA, neck supple. moist mucous membranes Cardiovascular: Regular rate and rhythm, no extra sounds. Pulmonary: Clear to auscultation bilaterally, normal work of breathing. Abdomen: Soft, obese, nontender, nondistended, positive bowel sounds. Musculoskeletal: Atraumatic, no peripheral edema. Neurologic: Patient awake alert and oriented x 3, speech is clear Skin: Warm, dry, no rash EMERGENCY DEPARTMENT COURSE/MDM: This patient was evaluated and appeared to be in no significant distress. IV access was obtained and laboratory work was drawn. The patient was placed on the awake overnight monitor and noted to be in a normal sinus rhythm. Her vital signs have remained stable and she is afebrile. Laboratory work reveals a normal WBC and lactate. UA is concerning for infection will be sent for culture. After reviewing the patient's previous urine cultures, she was given a dose of IV daptomycin after blood cultures were obtained. IV fluids were continued and the patient was given IV Zofran for nausea. Patient's case was discussed with the hospitalist service, Dr. Maier, who will evaluate the patient for admission and further management. MONITORING: An order for cardiac monitoring was placed and the patient is noted to be in a NSR at 68 beats per minute. DISPOSITION: admission Past Med/Surg History Problem List (Updated 03/16/24 @ 05:43 by Jody Fernando MD) Peripheral neuropathy HLD (hyperlipidemia) Complicated UTI (urinary tract infection) (Acute) Ureterovaginal fistula (Acute) Pelvic mass Weakness (Acute) Bladder mass Hypertension Diabetes Prolapse of female pelvic organs Frequent UTI Medical History Syncope and collapse Closed head injury Severe sepsis Sepsis due to urinary tract infection Encounter for pre-operative examination Ureteral obstruction, left Gross hematuria Bladder mass Osteoporosis GERD (gastroesophageal reflux disease) Sleep apnea no device Family history of reaction to anesthesia SISTER - N/V Nausea and vomiting after administration of anesthetic agent Frequent UTI as of 02/24/24, currently on abx HTN (hypertension) Diabetes NIDDM Cervical cancer hx 1982, hx radiation , and 2 nicole implants Surgical History History of transurethral resection of bladder tumor (TURBT) w/stent placement, 01/17/24, [facility] S/P cystoscopy with ureteral stent placement w/ureteroscopy, bilat. RP, urethral dilation, 2021 History of endoscopy History of colonoscopy History of surgery nicole implants for hx cervical cancer History of cholecystectomy Family History Grandmother Family history of diabetes mellitus Mother Pre-diabetes Social History Smoking Status: Never smoker Second Hand Exposure: No; Do You Dip or Chew Tobacco: No; Tobacco Cessation Education Requested by Patient: No Hx Alcohol Use: No Hx Substance Use: No Preferred Language: Danish Communication Ability: Effective General Operations Agent Required: No Beliefs That Will Affect Care: None marital status: / Current Living Situation: Alone Current Living Situation Comment: home alone current occupational status: retired Other Information That Helps Us Care for You: No Feels Safe at Home: Yes Safety Concerns: Feels Safe At This Time Assistive Devices: Glasses Assistive Devices Comment: straight cath self Allergies Allergies Allergy/AdvReac Type Severity Reaction Status Date / Time nitrofurantoin Allergy Intermediate Redness of Verified 03/10/24 01:59 [From Macrobid] Skin Home Meds Home Medications Medication Instructions Recorded Confirmed diltiazem HCl 180 mg 180 mg PO QAM 06/23/21 03/14/24 capsule,extended release 24 hr (Cardizem CD) lisinopril 20 mg tablet 20 mg PO QAM 06/23/21 03/14/24 magnesium oxide 400 mg PO BID 06/23/21 03/14/24 metformin 500 mg tablet 1,000 mg PO BID 06/23/21 03/14/24 pantoprazole 40 mg tablet,delayed 40 mg PO QAM 06/23/21 03/14/24 release (Protonix) multivitamin 1 cap PO QAM 07/14/21 03/14/24 gabapentin 400 mg capsule 400 mg PO TID 01/16/24 03/14/24 pravastatin 20 mg tablet 20 mg PO QAM 03/09/24 03/14/24 insulin glargine 100 unit/mL (3 20 unit subcut QA 03/10/24 03/14/24 mL) subcutaneous pen (Lantus Solostar U-100 Insulin) Previous Rx's Medication Instructions Recorded linezolid 600 mg tablet 600 mg PO BID 10 days #20 tabs 03/11/24 walker #1 ea 03/11/24 Results & Data (ED) Vital Signs Vital Signs - 24 hr 03/14/24 22:48 03/14/24 23:30 03/14/24 23:31 Temperature 36.5 C Temperature Source Oral Pulse Rate 68 67 Pulse Rate [Apical] 67 Pulse Rate from SpO2 Sensor Respiratory Rate 16 17 Respiratory Effort / Characteristics Non-Labored Spontaneous Non-Labored Respiratory Depth Normal Normal Respiratory Pattern Regular Blood Pressure 147/65 H Blood Pressure [Right Arm] 177/60 H Blood Pressure Mean 92 Blood Pressure Mean [Right Arm] 99 Blood Pressure Position Sitting Pulse Oximetry 98 98 Oxygen Delivery Method Room Air Room Air Sepsis Recent Fever Within 48 Hours Yes Sepsis New/Unexplained Change in Mental Status N/A Sepsis Action Taken by Nursing No Action Required 03/15/24 00:14 03/15/24 00:15 03/15/24 00:31 Temperature 36.8 C Temperature Source Oral Pulse Rate 68 62 Pulse Rate [Apical] 67 Pulse Rate from SpO2 Sensor Respiratory Rate 19 17 18 Respiratory Effort / Characteristics Non-Labored Respiratory Depth Normal Respiratory Pattern Regular Blood Pressure 153/65 H Blood Pressure [Right Arm] 167/73 H Blood Pressure Mean 95 Blood Pressure Mean [Right Arm] 104 Blood Pressure Position Pulse Oximetry 98 98 99 Oxygen Delivery Method Room Air Room Air Room Air Sepsis Recent Fever Within 48 Hours Sepsis New/Unexplained Change in Mental Status Sepsis Action Taken by Nursing 03/15/24 01:00 03/15/24 01:30 03/15/24 02:00 Temperature Temperature Source Pulse Rate 66 64 64 Pulse Rate [Apical] Pulse Rate from SpO2 Sensor Respiratory Rate 18 23 20 Respiratory Effort / Characteristics Respiratory Depth Respiratory Pattern Blood Pressure 147/91 H 155/62 H 141/66 H Blood Pressure [Right Arm] Blood Pressure Mean 97 78 110 Blood Pressure Mean [Right Arm] Blood Pressure Position Pulse Oximetry 96 98 95 Oxygen Delivery Method Room Air Room Air Room Air Sepsis Recent Fever Within 48 Hours Sepsis New/Unexplained Change in Mental Status Sepsis Action Taken by Nursing 03/15/24 02:30 03/15/24 03:00 03/15/24 03:29 Temperature Temperature Source Pulse Rate 63 71 69 Pulse Rate [Apical] Pulse Rate from SpO2 Sensor Respiratory Rate 16 18 Respiratory Effort / Characteristics Respiratory Depth Respiratory Pattern Blood Pressure 136/69 140/65 Blood Pressure [Right Arm] Blood Pressure Mean 116 109 Blood Pressure Mean [Right Arm] Blood Pressure Position Pulse Oximetry 95 98 Oxygen Delivery Method Room Air Room Air Sepsis Recent Fever Within 48 Hours Sepsis New/Unexplained Change in Mental Status Sepsis Action Taken by Nursing 03/15/24 04:00 03/15/24 05:00 03/15/24 05:36 Temperature 36.8 C Temperature Source Oral Pulse Rate 61 70 67 Pulse Rate [Apical] Pulse Rate from SpO2 Sensor 68 Respiratory Rate 17 16 20 Respiratory Effort / Characteristics Respiratory Depth Respiratory Pattern Blood Pressure 145/61 H 151/66 H 147/70 H Blood Pressure [Right Arm] Blood Pressure Mean 90 110 Blood Pressure Mean [Right Arm] Blood Pressure Position Pulse Oximetry 97 95 96 Oxygen Delivery Method Room Air Room Air Room Air Sepsis Recent Fever Within 48 Hours Sepsis New/Unexplained Change in Mental Status Sepsis Action Taken by [facility] Medications Current Medication List: was personally reviewed by me Laboratory Data Attestation: I reviewed the patient's lab results. 03/14/24 23:30 03/14/24 23:30 Lab Results 03/14/24 03/15/24 03/15/24 Range/Units 23:30 00:35 01:08 WBC 8.38 (4.8-10.8) K/ul RBC 3.49 L (4.20-5.40) M/uL Hgb 9.8 L (12.0-16.0) g/dl Hct 30.6 L (37.0-47.0) % MCV 87.7 (80.0-100.0) fL MCH 28.1 (25.0-34.0) pg MCHC 32.0 (32.0-36.0) g/dL RDW Std Deviation 45.6 (36.4-46.3) fL RDW Coeff of Anders 14.3 (11.5-14.5) % Plt Count 305 (130-400) K/uL MPV 9.4 (9.4-12.4) fL Immature Gran % (Auto) 0.4 % Neut % (Auto) 52.8 % Lymph % (Auto) 25.3 % Bl[place] % (Auto) 6.4 % Eos % (Auto) 14.6 % Baso % (Auto) 0.5 % Neut # (Auto) 4.43 (1.40-6.50) K/uL Lymph # (Auto) 2.12 (1.20-3.40) K/uL Bladen # (Auto) 0.54 (0.11-0.59) K/uL Eos # (Auto) 1.22 H (0.00-0.50) K/uL Baso # (Auto) 0.04 (0.00-0.20) K/uL Immature Gran # (Auto) 0.03 (0.01-0.20) K/uL Sodium 138 (136-145) mmol/L Potassium 3.8 (3.5-5.1) mmol/L Chloride 104 (98-107) mmol/L Carbon Dioxide 25 (21-32) mmol/L Anion Gap 9 (3-11) BUN 14 (6-23) mg/dl Creatinine 0.92 (0.6-1.2) mg/dl Est Cr Clr Drug Dosing 48.2 ml/min eGFR 64.13 BUN/Creatinine Ratio 15.2 (10-20) Glucose 100 H (70-99(Fasting)) mg/dl Lactate 1.3 (0.4-2.0) mmol/L Calcium 9.0 (8.6-10.3) mg/dl Total Bilirubin 0.3 (0.2-1.0) mg/dl AST 9 L (13-39) U/L ALT 7 (7-52) U/L Alkaline Phosphatase 39 (34-104) U/L Total Protein 7.1 (6.0-8.3) gm/dl Albumin 3.7 (3.4-5.0) gm/dl Globulin 3.4 (2.5-4.0) gm/dl Albumin/Globulin Ratio 1.1 (0.9-2) Procalcitonin 0.11 (0-0.5) ng/ml Urine Color Yellow Urine Appearance Cloudy A (Clear) Urine pH 5.5 (4.5-7.5) Ur Specific [place] 1.018 (1.000-1.030) Urine Protein 2+ H (Negative) Urine Glucose (UA) Negative (Negative) Urine Ketones Negative (Negative) Urine Blood 3+ H (Negative) Urine Nitrite Negative (Negative) Urine Bilirubin Negative (Negative) Urine Urobilinogen Negative (Negative) Ur Leukocyte Esterase 3+ H (Negative) Urine WBC (Auto) >50 H (0-5) /hpf Urine RBC (Auto) >20 H (0-2) /hpf U Hyaline Cast (Auto) 0-2 (0-2) /lpf U Epithel Cells (Auto) 0-2 (0-2) /hpf Urine Bacteria (Auto) None Seen (None Seen) Calcium Oxalate Crystal Present A (None Prsent) Urine Yeast Present A (None Prsent) Adenovirus (PCR) Not Detected (NotDetected) B. pertussis DNA (PCR) Not Detected (NotDetected) B.parapertussis DNA PCR Not Detected (NotDetected) C. pneumoniae DNA (PCR) Not Detected (NotDetected) Coronavirus OC43 (PCR) Not Detected (NotDetected) Coronavirus HKU1 (PCR) Not Detected (NotDetected) Coronavirus 229E (PCR) Not Detected (NotDetected) SARS-CoV-2 (PCR) Not Detected (NotDetected) Coronavirus NL63 (PCR) Not Detected (NotDetected) Human Metapneumovir PCR Not Detected (NotDetected) Influenza Type A (PCR) Not Detected (NotDetected) Influenza Type B (PCR) Not Detected (NotDetected) M. pneumoniae (PCR) Not Detected (NotDetected) Parainfluenza 1 (PCR) Not Detected (NotDetected) Parainfluenza 2 (PCR) Not Detected (NotDetected) Parainfluenza 3 (PCR) Not Detected (NotDetected) Parainfluenza 4 (PCR) Not Detected (NotDetected) RSV (PCR) Not Detected (NotDetected) Entero/Rhino (PCR) Not Detected (NotDetected) Administered Medications Diltiazem HCl (Diltiazem Hcl 180 Mg Capcr) 180 mg PO QAM [facility] Stop: 04/14/24 08:59 Last Admin: 03/15/24 08:26 Dose: 180 mg Documented By: ARAM Enoxaparin Sodium (Enoxaparin Inj 40 Mg/0.4 Ml Syr) 40 mg SQ Q24H [facility] Stop: 04/14/24 08:59 Last Admin: 03/15/24 08:26 Dose: Not Given Documented By: ARAM Gabapentin (Gabapentin 400 Mg Cap) 400 mg PO TID [facility] Stop: 04/14/24 08:59 Last Admin: 03/15/24 21:05 Dose: Not Given Documented By: Admin: 03/15/24 13:39 Dose: Not Given Documented By: Admin: 03/15/24 08:27 Dose: Not Given Documented By: ARAM Daptomycin 225 mg/ Syringe 4.5 mls @ 2.25 mls/min IV Q24H [facility]; Protocol Stop: 03/26/24 00:59 Last Admin: 03/16/24 00:22 Dose: 2.25 mls/min Documented By: OSMAN Insulin Aspart (Insulin Aspart Per Unit Charge) 0 units SC ACHS [facility] Stop: 04/14/24 07:29 Last Admin: 03/15/24 21:05 Dose: Not Given Documented By: OSMAN Co-signed By: CASSANDRA Admin: 03/15/24 17:52 Dose: Not Given Documented By: ARAM Co-signed By: BARBARA Admin: 03/15/24 12:37 Dose: 4 units Documented By: ARAM Co-signed By: MEGAN Admin: 03/15/24 08:28 Dose: 4 units Documented By: ARAM Co-signed By: MEGAN Insulin Glargine (Lantus Per Unit Charge) 10 units SQ BID [facility] Stop: 04/14/24 08:59 Last Admin: 03/15/24 21:04 Dose: 10 units Documented By: OSMAN Co-signed By: CASSANDRA Admin: 03/15/24 08:30 Dose: 10 units Documented By: ARAM Co-signed By: MEGAN Lisinopril (Lisinopril 20 Mg Tab) [facility] [place] Stop: 04/14/24 08:59 Last Admin: 03/15/24 08:26 Dose: 20 mg Documented By: ARAM Magnesium Oxide (Magnesium Oxide 400 Mg Tab) 400 mg PO BID [facility] Stop: 04/14/24 08:59 Last Admin: 03/15/24 21:04 Dose: 400 mg Documented By: Admin: 03/15/24 08:26 Dose: 400 mg Documented By: ARAM Multivitamins (Multivitamin Tab) [facility] [place] Stop: 04/14/24 08:59 Last Admin: 03/15/24 08:26 Dose: 1 tab Documented By: ARAM Pantoprazole Sodium (Pantoprazole 40 Mg Tab) [facility] [place] Stop: 04/14/24 08:59 Last Admin: 03/15/24 08:26 Dose: 40 mg Documented By: ARAM Discontinued Medications Sodium Chloride (Nss) 1,000 mls @ 999 mls/hr IV .Q1H1M ONE Stop: 03/15/24 01:13 Last Infusion: 03/15/24 01:44 Dose: Infused Documented By: Admin: 03/15/24 00:25 Dose: 999 mls/hr Documented By: SIERRA Daptomycin 325 mg/ Syringe 6.5 mls @ 3.25 mls/min IV Q24H [facility]; Protocol Stop: 03/15/24 00:20 Last Admin: 03/15/24 01:48 Dose: 3.25 mls/min Documented By: SIERRA Ondansetron HCl (Ondansetron Inj 2 Mg/Ml 2 Ml Vial) 4 mg IV NOW [facility] Stop: 03/15/24 00:14 Last Admin: 03/15/24 00:25 Dose: 4 mg Documented By: CDM Discharge Plan Visit Data Chief Complaint: Vomiting Stated Complaint: VOMINTING, NAUSEA ED Provider: Jody Fernando Discharge Problem: Ureterovaginal fistula, Complicated UTI (urinary tract infection) Patient Disposition: Admitted As Inpatient Discharge Instructions Interventions: ED Discharge Assessment Last Done: 03/15/24 05:36
--- OUTSIDE RECORDS SUMMARY | 2024-03-15 06:27 | External Medical Summary ---
Author Name Unknown Address Unknown Organization [id number]:[facility] [place] [address] [facility] [address] Laboratory Report Ordering Provider Test Date Status KEITH JACK 03/12/2024 09:42:30 Final Observation Date Value Abnormality Reference (Units ) Status HbA1C 03/12/2024 09:42:30 8.0 Above high normal 4. 0-5.6 (%) Final The use of HbA1c to monitor glycemic status is based on normal hemoglobin and HbA composition. This test should not be used in patients with abnormal hemoglobin that affects the half life of the red blood cell or the in vivo glycation rates. Glucose, estimated average 03/12/2024 09:42:30 183 Above high normal <126 (mg/dL) Joseph ramirez Performing Location [facility] [place] [address] [facility] [address]
--- OUTSIDE RECORDS SUMMARY | 2024-03-15 06:27 | External Medical Summary | Summary of Care ---
Author Name Unknown Organization [facility] Address [address] [place] [address] Phone [phone] Care Team Providers Care Screen Making Technician Name Role Phone Unavailable Primary Care Provider Unavailabl e Reason for Visit * Reason Comments Other Recently seen and ad mitted for infection. To have surgery at the end of March. Still on oral antibiotics for infection * Auth/Cert Specialty Diagnoses / Procedures Referred By Roel luke Referred To Contact [facility] [address] [place] [address] Phone: tel:[phone] [facility]) Emergency Department ([facility]) [address] [place] [address] Phone: tel: fax: Referral ID Status Reason Start Date Expiration Date Visits Re quested Visits Authorized [id number] Encounter Details Date Type Department Care Team (Late st Contact Info) Description 03/13/2024 3:43 PM EST - 03/13/2024 5:14 PM EST Emergency [facility]) Emergency Department ([facility]) [address] [place] [address] Karl Mcguire, DO [address] [place] [address] Complicated UTI (urinary tract infection) (Primary Dx) Discharge Disposition: Home - Self Care Allergies Active Allergy Reactions Criticality Noted Date Comments Nitrofurantoin Hives Medium 03/12/2024 documented as of this encounter (statuses as of 03/14/2024) Medications Gabapentin 400 MG Oral Capsule (Neurontin) Take 1 Capsule by mouth in the morning and 1 Capsule at noon and 1 Capsule in the evening and 1 Capsule before bedtime. Active Pravastatin Sodium 20 MG Oral Tablet (Pravachol) Take 1 Tablet by mouth in the morning. Active Lisinopril 20 MG Oral Tablet (Prinivil) Take 1 Tablet by mouth in the morning. Active metFORMIN HCl 500 MG Oral Tablet (Glucophage) Take 2 Tablets by mouth 2 times a day with morning and evening meals. Active Pantoprazole Sodium 40 MG Oral Tablet Delayed Release (Protonix) Take 1 Tablet by mouth in the morning. Active Multi-Vitamin Oral Tablet Take 1 Tablet by mouth in the morning. Active Magnesium Oxide -Mg Supplement 400 (240 Mg) MG Oral Tablet (Mag-Ox) Take 1 Tablet by mouth in the morning and 1 Tablet before bedtime. 4 Active Lantus SoloStar 100 UNIT/ML Subcutaneous Solution Pen-injector Inject 20 Units under the skin in the morning. 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 documented as of this encounter (statuses as of 03/14/2024) Social History Tobacco Use Types Packs/Day Years Used Date Smoking Tobacco: Never Smokeless Tobacco: Never Tobacco Cessation:Counseling Given: Not Answered Alcohol Use Standard Drinks/Week Comments Never 0 (1 standard drink = 0.6 oz pur e alcohol) Comments No Sex and Gender Information Value Date Recorded Sex Assigned at Female 03/06/2024 1:54 PM EST Legal Sex Female 5:16 AM EST Gender Identity Female 03/06/2024 1:35 PM EST Sexual Orientation Not on file documented as of this encounter Last Filed Vital Signs Vital Sign Reading Time Taken Comments Blood Pressure 120/60 03/13/2024 3:24 PM EST Pulse 58 03/13/2024 3:24 PM EST Temperature 36 C (96.8 F) 03/13/2024 3:24 PM EST Respiratory Rate 20 03/13/2024 3:24 PM EST Oxygen Saturation 100% 03/13/2024 3:24 PM EST Inhaled Oxygen Concentration - - Weight 66.7 kg (147 lb) 03/13/2024 3:24 PM EST Height - - Body Mass Index - - documented in this encounter Discharge Instructions * Discharge Instructions* Brigitte Junior CRNP - 03/13/2024 5:08 PM EST You were seen and evaluated today for concern about being septic. Your blood pressure is stable your labs were on unremarkable. Your urine is positive for urinary tract infections continue your Linezolid as directed. Follow up with your year your concrete bucket hooker tomorrow as scheduled. Return to the Emergency Room for any new or acute worsening symptoms documented in this encounter ED Notes * Karl Mcguire DO - 03/13/2024 4:48 PM EST HISTORY OF PRESENT ILLNESS Rosaura Pino is a 78 year old female who presents to the ED for evaluation of Other (Recently seen and admitted for infection. To have surgery at the end of March. Still on oral antibiotics for infection). The patient was seen at 03/13/24 1543. Rosaura Pino this is a 78-year-old female whopresents to the Emergency Room department with concerns of being septic. She is accompanied by her son. Patient has a long history of urinary symptoms and is under the care of a year old concrete bucket hooker. She was hospitalized last week for urosepsis and a fractured left foot. 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 She denies any fever, chills, abdominal pain, backache,dysuria. Patient reports that she has been self cathing for the past 2 years. She is currently on Linezolid for a urinary tract infection. She is scheduled to see her year old concrete bucket hooker tomorrow. She is in no apparent distress. Review of Systems Constitutional: Negative for chills, fatigue and fever. Respiratory: Negative for cough and shortness of breath. Cardiovascular: Negative for chest pain. Genitourinary: Negative for dysuria and pelvic pain. Musculoskeletal: Negative for back pain. All other systems reviewed and are negative. The patient's allergies, past history, and medications were reviewed. PHYSICAL EXAM Initial Vitals (see all): BP 120/60 | Pulse 58 | Resp 20 | Temp 96.8 | O2 100 %, Room Air, None | Weight 66.68 kg | Height 0 cm | Initial Pain Assessment (see all): 0 (no pain)/10 ([facility] Adult Scale 0-10 (18 years and older)) Physical Exam Vitals and nursing note reviewed. Constitutional: Appearance: Normal appearance. HENT: Mouth/Throat: Mouth: Mucous membranes are dry. Cardiovascular: Rate and Rhythm: Normal rate and regular rhythm. Pulses: Normal pulses. Heart sounds: Normal heart sounds. Pulmonary: Effort: Pulmonary effort is normal. Breath sounds: Normal breath sounds. Musculoskeletal: General: Normal range of motion. Cervical back: Normal range of motion and neck supple. Lymphadenopathy: Cervical: No cervical adenopathy. Skin: General: Skin is warm and dry. Capillary Refill: Capillary refill takes less than 2 seconds. Neurological: Mental Status: She is alert and oriented to person, place, and time. PROCEDURES AND TREATMENTS ED Orders | ED Results MEDICAL DECISION MAKING Nursing notes and vital signs were reviewed. Rosaura Pino this is a 78-year-old female who presents to the Emergency Room department with concerns of being septic. She is accompanied by her son. Patient has a long history of urinary symptoms and is under the care of a year old concrete bucket hooker. She was hospitalized last week for urosepsis cleo fractured left foot. 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 She denies any fever, chills, abdominal pain, backache, dysuria. Patient reports that she has been self cathing for the past 2 years. She is currently on Linezolid for a urinary tract infection. She is scheduled to see her year old concrete bucket hooker tomorrow. She is in no apparent distress. The patient is alert and oriented x3. Lungs are clear to auscultation. Throat is clear no cervical adenopathy. Abdomenis soft nontender no CVA tenderness noted. I reviewed her labs from yesterday WBC 7.88, H and H 9.6/30.0 urine is positive for leukocytes. I spoke at length with the patient and her son informed her that she is not presenting with symptoms of septicemia or urosepsis. I recommended that she get a bidet. Instructed patient to continue her antibiotics as directed. Instructed patient to follow up with her your concrete bucket hooker tomorrow as scheduled. Instructed patient to return to the Emergency Room for any new or acute worsening symptoms. Patient and son verbalized understanding and are comfortable with plan for discharge. Patient stable at time of discharge. Clinical Impressions Complicated UTI (urinary tract infection) Disposition Discharged. The patient's condition at disposition was: stable. Karl Mcguire was the attending physician who supervised the care of this patient. MACRINA Cunningham ATTENDING ATTESTATION I have discussed the patient's management with the provider listed above and agree with the note, findings, and plan of care. I personally made/approved the management plan and take responsibility for patient management. documented in this encounter Plan of Treatment Upcoming Encounters Date Type Department Care Team (Latest Contact Info) Description 03/14/2024 12:50 PM EST [facility] [place] [address] Jordi Reyna MD [address] [facility] [place] [address] 03/23/2024 8:30 AM EST [facility] [place] [address] [facility] [address] Rigo Connolly PA-C [address] [facility] [place] [id number] 03/23/2024 9:40 AM EST Office Visit General Internal Medicine [address] [place] [id number] Ivet Aponte DO [address] [place] [address] 04/06/2024 1:45 PM EST Hospital Encounter OR [facility], OPERATING ROOM [facility] [address] [place] [address] Hector Stinson MD [address] [place] [address] 04/06/2024 1:45 PM EST - 04/06/2024 3:34 PM EST Surgery OR [facility], OPERATING ROOM [facility] [address] [place] [id number] Hector Stinson MD [address], [place] [id number] CYSTOURETHROSCOPY WITH URETERAL CATHETER Scheduled Procedures Name Priority Associated Diagnoses Date/Ti id CYSTOURETHROSCOPY WITH URETE RAL CATHETER Ureterovaginal fistula 04/06/2024 1:45 PM EST UROGRAHY, RETROGRADE, WITH O R WITHOUT KUB Ureterovaginal fistula 04/06/2024 1:45 PM EST CYSTOURETHROSCOPY URETEROSCO PY AND OR PYELOSCOPY Ureterovaginal fistula 04/06/2024 1:45 PM EST Health Maintenance Due Date Last Done Comments Depression Screening 1957 Hepatitis C Screening 1963 DTap/Tdap Vaccines (1 - Tdap) 1964 DXA Scan 11/11/2011 Zoster Vaccines (3 of 3) 05/13/2020 021, 01/04/2020, 07/22/2015 COVID-19 Vaccine ( - season) 2023 02/17/2021, 05/15/2020, 04/17/2020 Pneumococcal Vaccine: 50+ Years Completed 11/11/2022, 06/03/2015, 01/15/2008 Influenza Vaccine (FLU shot) Completed , 02/21/2023, 12/01/2021, Additional history exists HPV (Gardasil) Vaccine Aged Out No lo [...] as of this encounter Visit Diagnoses Diagnosis Ureterovaginal fistula- Primary Urinary-genital tract fistula, female Complicated UTI (urinary tract infection)- Primary Urinary tract infection, site not specified Ureterovaginal fistula Urinary-genital tract fistula, female documented in this encounter"
--- OUTSIDE RECORDS SUMMARY | 2024-03-15 06:27 | External Medical Summary ---
Author Name Unknown Address Unknown Organization [id number]:[facility] [place] [address] [place] [address] Laboratory Report Ordering Provider Test Date Status KEITH JACK 03/12/2024 09:42:30 Final Observation Date Value Abnormality Reference (Units ) Status WBC, Total 03/12/2024 09:42:30 7.85 4.00-10.80 (K/uL) Final RBC 03/12/2024 09:42:30 3.30 3.85-5.15 (M/uL) Final Hemoglobin 03/12/2024 09:42:30 9.5 Below low normal 12.0-15.3 (g/dL) Final HCT 03/12/2024 09:42:30 30.0 Below low normal 36.0-45.2 (%) Final MCV 03/12/2024 09:42:30 90.9 81.5-97.5 (fL) Final MCH 03/12/2024 09:42:30 28.8 27.0-34.0 (pg) Final MCHC 03/12/2024 09:42:30 31.7 32.0-36.0 (g/dL) Final RDW 03/12/2024 09:42:30 14.1 11.5-15.5 (%) Final Platelets 03/12/2024 09:42:30 306 140-400 (K/uL) Final MPV 03/12/2024 09:42:30 9.9 6.6-11.1 (fL) Final Nucleated erythrocytes/100 leukocytes [Ratio] in Blood by Automated count 03/12/2024 09:42:30 0 <=0 (/100 WBCs) Final Performing Location [facility] - [address] [place] [address]
--- OUTSIDE RECORDS SUMMARY | 2024-03-15 06:27 | External Medical Summary | Summary of Care ---
Author Name Unknown Organization [facility] Address [address] [place] [address] Phone [phone] Care Team Providers Care Evaporator Operator Molasses Name Role Phone Unavailable Primary Care Provider Unavailabl e Reason for Referral * Evaluate & Treat - Unlimited Visits (Within 10 days (routine)) - Authorized Specialty Diagnoses / Procedures Referred By Roel luke Referred To Contact Gynecologic Oncology / Gynecology Oncology Diagnoses Ureterovaginal fistula Shayne Roland MD [address] [place] [address] Phone: tel: fax: Referral ID Status Reason Start Date Expiration Date Visits Requested Visits Authorized [id number] Authorized Specialty Services Required 03/12/[phone] Question Answer Referral Priority Within 10 days (routine) Where should this appointment be scheduled? [facility] Comments Hx cervical cancer treated with radiation only. Now with ureterovaginal fistula, report of mass posterior bladder, Please evaluate for cervical cancer recurrence Reason for Visit * Reason Comments NEW PATIENT Encounter Details Date Type Department Care Team (Latest Contact Info) Description 03/12/2024 8:00 AM EST Office Visit Urology, [place] [address] [place] [address] Hector Stinson MD [address] [place] [address] Ureterovaginal fistula* Allergies Active Allergy Reactions Criticality Noted Date Comments Nitrofurantoin Hives Medium 03/12/2024 documented as of this encounter (statuses as of 03/12/2024) Medications Gabapentin 400 MG Oral Capsule (Neurontin) [...] as of this encounter (statuses as of 03/12/2024) Active Problems Problem Noted Date Diagnosed Date Ureterovaginal fistula 03/12/2024 documented as of this encounter (statuses as of 03/12/2024) Social History Tobacco Use Types Packs/Day Years Used Date Smoking Tobacco: Never Tobacco Cessation:Counseling Given: Not Answered Alcohol Use Standard Drinks/Week Comments Never 0 (1 standard drink = 0.6 oz pur e alcohol) Comments Unknown Sex and Gender Information Value Date Recorded Sex Assigned at Female 03/06/2024 1:54 PM EST Legal Sex Female 5:16 AM EST Gender Identity Female 03/06/2024 1:35 PM EST Sexual Orientation Not on file documented as of this encounter Last Filed Vital Signs Vital Sign Reading Time Taken Comments Blood Pressure 140/63 03/12/2024 8:13 AM EST Pulse 73 03/12/2024 8:13 AM EST Temperature 36.3 C (97.3 F) 03/12/2024 8:13 AM ES T Respiratory Rate - - Oxygen Saturation - - Inhaled Oxygen Concentration - - Weight - - Height - - Body Mass Index - - documented in this encounter Progress Notes * Shayne Roland MD - 03/12/2024 8:08 AM EST Urology Clinic History and Physical [facility] 03/12/2024 Rosaura Pino [id number] CC ureterovaginal fistula HPI: Rosaura Pino is a 78 year old female PMH T2DM, HTN referred by Harsh Johnson MD 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 Patient reports that urinary symptoms began about 2 years ago. She was seen by urogynecology at [place] who found her to be in retention. She was unable to void at all and now CICs daily. For past few years constant incontinence now wears depends 5-6 per days. No increase really noticed with urgency, laugh cough sneeze, etc Had severe LLQ pain a couple months ago and had stent placed 01/2024 OR 03/02/24 for left ureteral obstruction, pelvic mass, frequent UTI, Left [id number] stent, Left retrograde revealed ureterovaginal fistula about 3cm proximal above the UO. Vaginoscopy with cystoscopywhite fibrinous material upper aspect of vaginal vault. Biopsies obtained, no path report yet. Imaging noted potential mass posterior to blader impacting distal left ureter, no read or imaging available Radiation for cervical cancer 41 years ago,. No other surgeries besides cholecystectomy about 30 years ago. Past Tuesday has fall and broke foot and hit head. UTI diagnosed and on linezolid. Had been on antibiotics for 2 months prior T2DM on insulin and ozempic, last A1c around 11 before luda Patient denies suprapubic pain, gross hematuria, and flank pain, tolerating stent No past medical history on file. No past surgical history on file. No current outpatient medications on file. No current facility-administered medications for this visit. Review of patient's allergies indicates: Not on File No family history on file. Social History Socioeconomic History Marital status: Spouse name: Not on file Number of children: Not on file Years of education: Not on file Highest education level: Not on file Occupational History Not on file Tobacco Use Smoking status: Not on file Smokeless tobacco: Not on file Substance and Sexual Activity Alcohol use: Not on file Drug use: Not on file Sexual activity: Not on file Other Topics Concern Not on file Social History Narrative Not on file Social Needs Financial Resource Strain: Not on file Food Insecurity: Not on file Transportation Needs: Not on file Social Connections: Unknown (08/23/2023) Social Connections How often do you feel lonely or isolated from those around you? (Adult - for ages 18 years and over): Not on file Housing Stability: Not on file Review of Systems: Constitutional:negative for weight loss, fatigue, fevers, or night sweats Respiratory: denies shortness of breath, cough, hematemesis or wheezing Cardiovascular: denies chest pain, dyspnea on exertion, peripheral edema Gastrointestinal: negative for abdominal pain, nausea, blood per rectum, diarrhea or change in bowel habits Genitourinary: per HPI Musculoskeletal: denies new bone pain or joint pain Neurologic: denies weakness, dizziness, changes in vision or hearing Endocrine: denies heat or cold intolerance Skin: denies new rashes, skin discoloration or lesions Hematologic/Lymphatic: denies easy bruising or bleeding, denies swollen lymph nodes Physical Examination: There were no vitals taken for this visit. Constitutional: Alert, no acute distress Skin: No obvious rashes or lesions Eyes: No scleral icterus ENT/Mouth: No tracheal deviation Cardiovascular: Normal rate, regular rhythm Respiratory: Non-labored breathing Gastrointestinal: Abdomen is soft, non-tender, non-distended Neurological: No gross focal deficits Psychiatric: Normal mood and affect Genitourinary: No suprapubic or flank tenderness Labs: Results for orders placed or performed in visit on 01/27/99 CBC/DIFF ([facility]) Result Value Ref Range WBC 6.6 4.0 - 11.0 K/uL RBC 4.60 4.0 - 5.2 M/uL HGB 14.1 12.0 - 16.0 g/dL HCT 41.2 37 - 47 % MCV 89.6 82 - 94 fL MCH 30.7 28 - 32 pg MCHC 34.2 33 - 36 g/dL RDW 13.8 11.7 - 14.7 % PLT 231 150 - 400 K/uL MPV 9.8 8.7 - 12.1 fL DIFF TYPE AUTO Neutrophils % 61 40 - 75 % Lymphocytes % 28 18 - 42 % Monocytes % 8 1 - 11 % Eosinophils % 2 0 - 6 % Basophils % 1 0 - 2 % ABS. SEGS 4.1 1.8 - 7.7 K/uL Absolute Lymphocytes 1.9 1.0 - 4.8 K/uL Absolute Monocytes 0.5 0.0 - 1.1 K/uL Absolute Eosinophils 0.1 0.0 - 0.7 K/uL Absolute Basophils 0.0 0.0 - 0.2 K/uL RBC MORPH NORMAL CK Result Value Ref Range CK 112 24 - 170 U/L COMPR METAB PANEL Result Value Ref Range BUN 11 10 - 20 mg/dL SODIUM 143 135 - 146 mmol/L POTASSIUM 4.1 3.5 - 5.0 mmol/L CHLORIDE 99 (L) 100 - 111 mmol/L CO2 26 24 - 32 mmol/L GLUCOSE 159 (H) 70 - 120 mg/dL CREATININE 0.8 0.7 - 1.5 mg/dL Albumin 4.0 3.9 - 4.8 g/dL AST 18 14 - 46 U/L Alkaline Phosphatase 59 39 - 117 U/L Bilirubin, Total 0.2 0.2 - 1.0 mg/dL CALCIUM 8.7 8.3 - 10.5 mg/dL Protein 7.3 6 - 8 g/dL T4, FREE Result Value Ref Range T4, Free 0.91 0.71 - 1.85 ng/dL TSH Result Value Ref Range TSH 2.66 0.35 - 5.50 uIU/mL Radiology: No imaging or reads to review in out system Assessment: 78 year old female with hx cervical cancer with radiation, left ureterovaginal fistula with stent Plan: -Request for [facility] CT and retrograde imaging -CBC, BMP, HgbA1c today -OR for cysto, cystogram, left stent exchange, left ureteroscopy, other procedures as indicated in 6-8 weeks -Thermometer Maker Onc referral for hx cervical cancer, with report of mass posterior to bladder. Referring for evaluation of cervical cancer recurrence Patient evaluated and discussed with Dr. Milad Roland MD Urology PGY-3 [facility], [place] 03/12/2024, 8:08 AM I have discussed the patient's management with the resident/fellow physician and agree with the note. Please refer to the documented findings and plan of care. This patient's visit today consisted ofan evaluation. I was present and confirmed the findings of the history and exam. She is referred by Dr. Johnson. She has a history of radiation therapy for cervical cancer. Apparently imaging shows a pelvic mass versus phlegmon. She is on CIC for neurogenic bladder for several years does not void on her own yet was continuously wet. She was found to have a distal ureteral fistula to the vagina explaining the continuous incontinence. She was referred to me for management. Shehas poor diabetes control with last hemoglobin A1c over 11. She currently has a stent in place on the left. I discussed the need for repeat endoscopic evaluation with me if a reconstruction would be planned. We would perform a cystoscopy, cystogram, possible double dye test, left retrograde pyelogram possible ureteroscopy. I also need to see the images that she has had. She may benefit from a urogynecology referral as well. I will set her up for the endoscopic evaluation with me. We discussed risks benefits and alternatives and informed consent was obtained. Hector Stinson MD documented in this encounter Plan of Treatment Upcoming Encounters Date Type Department Care Team (Latest Contact Info) Description 03/14/2024 12:50 PM EST [facility] [address] [facility] [place] [address] Jordi Reyna MD [address] [facility] [place] [address] 03/23/2024 8:30 AM EST [facility] [place] [address] [facility] [id number] Rigo Connolly PA-C [address] [facility] [phone] 03/23/2024 9:40 AM EST Office Visit General Internal Medicine [place] [address] [place] [phone] Ivet Aponte DO [address] [place] [address] 04/06/2024 1:45 PM EST Hospital En[place] [facility] [facility] [address] [place] [address] Hector Stinson MD [address] [place] [address] 04/06/2024 1:45 PM EST - 04/06/2024 3:34 PM EST Surgery [place] [facility] [address] [place] [phone] Hector Stinson MD [address], [place] [id number] CYSTOURETHROSCOPY WITH URETERAL CATHETER Scheduled Procedures Name Priority Associated Diagnoses Date/Ti me CYSTOURETHROSCOPY WITH URETE RAL CATHETER Ureterovaginal fistula 04/06/2024 1:45 PM EST UROGRAHY, RETROGRADE, WITH O R WITHOUT KUB Ureterovaginal fistula 04/06/2024 1:45 PM EST CYSTOURETHROSCOPY URETEROSCO PY AND OR PYELOSCOPY Ureterovaginal fistula 04/06/2024 1:45 PM EST Scheduled Referrals Name Type Priority Associated Diagnoses Orde r Schedule FLOOR WAXER/ONC REFERRAL OP Referral Within 10 da ys (routine) Ureterovaginal fistula Ordered: 03/12/2024 Health Maintenance Due Date Last Done Comments Depression Screening 1957 Hepatitis C Screening 1963 DTap/Tdap Vaccines (1 - Tdap) 1965 DXA Scan 11/11/2011 Zoster Vaccines (3 of 3) 05/13/2020 021, 01/04/2020, 07/22/2015 COVID-19 Vaccine (4 - season) 2023 02/17/2021, 05/15/2020, 04/17/2020 Pneumococcal [...] Not on filedocumented as of this encounter Procedures Procedure Name Priority Date/Time Associated Diagnosis Comments URINALYSIS, POINT OF CARE ROB 03/12/2024 8:20 AM EST documented in this encounter Results * (ABNORMAL) HEMOGLOBIN A1C (03/12/2024 9:42 AM EST) Hemoglobin A1C 8.0(H) 4.0 - 5.6 % 03/12/2024 10:35 AM EST [facility] Comment:The use of HbA1c to monitor glycemic status is based on normal hemoglobin and HbA composition. This test should not be used in patients with abnormal hemoglobin that affects the half life of the red blood cell or the in vivo glycation rates. Estimated Average Glucose 183(H) <126 mg/dL 03/12/2024 10:35 AM EST [facility] Blood Venous blood specimen / Unknown Venipuncture / Unknown 03/12/2024 9:42 AM EST 03/12/2024 10:18 AM EST Shayne Roland MD LAB BLOOD ORDERABLES Fi nal Result [facility] [address] [place] [address] * (ABNORMAL) BASIC METABOLIC PANEL (03/12/2024 9:42 AM EST) BUN 14 6 - 20 mg/dL 03/12/2024 10:49 AM EST [facility] CREATININE 0.9 0.5 - 1.0 mg/dL 03/12/2024 10:49 AM EST [facility] EGFR 65 >=60 mL/min 03/12/2024 10:49 AM EST [facility] Comment:eGFR is calculated b ased on the CKD-EPI 2020 equation. SODIUM 138 135 - 146 mmol/L 03/12/2024 10:49 AM EST [facility] POTASSIUM 4.0 3.5 - 5.1 mmol/L 03/12/2024 10:49 AM EST [facility] CHLORIDE 102 98 - 107 mmol/L 03/12/2024 10:49 AM EST [facility] CO2 22 22 - 32 mmol/L 03/12/2024 10:49 AM EST [facility] ANION GAP 14 7 - 15 mmol/L 03/12/2024 10:49 AM EST [facility] GLUCOSE 185(H) 70 - 120 mg/dL 03/12/2024 10:49 AM EST [facility] CALCIUM 9.6 8.4 - 10.2 mg/dL 03/12/2024 10:49 AM EST LABORATORY [facility] Blood Venous blood specimen / Unknown Venipuncture / Unknown 03/12/2024 9:42 AM EST 03/12/2024 10:18 AM EST Shayne Roland MD LAB BLOOD ORDERABLES Fi nal Result [facility] [address] [place] [address] * (ABNORMAL) URINALYSIS, POINT OF CARE (03/12/2024 8:20 AM EST) Color, Urine Yellow Light Yellow, Yellow 03/12/2024 1:15 PM EST [facility] Clarity, Urine Turbid(A) Clear 03/12/2024 1:15 PM EST [facility] Glucose, Urine Negative Negative mg/dL 03/12/2024 1:15 PM EST [facility] Bilirubin, Urine Negative Negative 03/12/2024 1:15 PM EST [facility] Ketone, Urine Trace(A) Negative mg/dL 03/12/2024 1:15 PM EST [facility] Specific [place], Urine 1.025 1.003 - 1.030 03/12/2024 1:15 PM EST [facility] Blood, Urine Small(A) Negative 03/12/2024 1:15 PM EST [facility] pH, Urine 5.5 5.0, 5.5, 6.0, 6.5, 7.0, 7.5 units 03/12/2024 1:15 PM EST [facility] Protein, Urine 100(A) Negative mg/dL 03/12/2024 1:15 PM EST [facility] Urobilinogen, Urine 0.2 0.2, 1.0 mg/dL 03/12/2024 1:15 PM EST [facility] Nitrite, Urine Negative Negative 03/12/2024 1:15 PM EST [facility] Esterase, Urine Large(A) Negative 03/12/2024 1:15 PM EST [facility] Urine 03/12/2024 8:20 AM EST 03/12/2024 1:15 PM EST us Hector Stinson MD LAB POINT OF CARE TE ST DOCKED DEVICE UNSOLICITED RESULTS Final Result [facility] [address] [place] [address] documented in this encounter Visit Diagnoses Diagnosis Ureterovaginal fistula- Primary Urinary-genital tract fistula, female Ureterovaginal fistula- Primary Urinary-genital tract fistula, female Ureterovaginal fistula Urinary-genital tract fistula, female documented in this encounter
--- OUTSIDE RECORDS SUMMARY | 2024-03-15 06:27 | External Medical Summary | Summary of Care ---
Author Name Unknown Organization [facility] Address [address] [place] [address] Phone [phone] Care Team Providers Care Energy Efficiency Engineer Name Role Phone Unavailable Primary Care Provider Unavailabl e Reason for Visit * Reason Comments Outpatient Testing Encounter Details Date Type Department Care Team (Late st Contact Info) Description 03/12/2024 9:50 AM EST Laboratory Outpatient Laboratory, [place] [address] [place] [phone] [place], Lab B[address]a [address] [place] [address] Ureterovaginal fistula Allergies Active Allergy Reactions Criticality Noted Date [...] Packs/Day Years Used Date Smoking Tobacco: Never Alcohol Use Standard Drinks/Week Comments Never 0 (1 standard drink = 0.6 oz pur e alcohol) Comments Unknown Sex and Gender Information Value Date Recorded Sex Assigned at Female 03/06/2024 1:54 PM EST Legal Sex Female 5:16 AM EST Gender Identity Female 03/06/2024 1:35 PM EST Sexual Orientation Not on file documented as of this encounter Plan of Treatment Upcoming Encounters Date Type Department Care Team (Late st Contact Info) Description 03/14/2024 12:50 PM EST Office Visit Urogynecology [facility] [address] [place] [address] [facility] [address] 03/23/2024 8:30 AM EST Office Visit Urology, [place] [address], [place] [phone] Rigo Connolly PA-C [address] [place] [address] 03/23/2024 9:40 AM EST Office Visit General Internal Medicine [place] [address] [place] [address] Ivet Aponte Thi, DO [address] [place] [address] Scheduled Orders Name Type Priority Associated Diagnoses Orde r Schedule CBC Lab Routine Ureterovaginal fistula Ordered: 03/12/2024 DIFFERENTIAL, AUTOMATED Lab Routine Ureterovaginal fistula Ordered: 03/12/2024 Scheduled Procedures Name Priority Associated Diagnoses Date/Ti me CYSTOURETHROSCOPY WITH URETERAL CATHETER Ureterovaginal fistula UROGRAHY, RETROGRADE, WITH OR WITHOUT KUB Ureterovaginal fistula CYSTOURETHROSCOPY URETEROSCO PY AND OR PYELOSCOPY Ureterovaginal fistula Health Maintenance Due Date Last Done Comments Depression Screening 1957 Hepatitis C Screening 1963 DTap/Tdap Vaccines (1 - Tdap) 1965 DXA Scan 11/11/2011 Zoster Vaccines (3 of 3) 05/13/2020 021, 01/04/2020, 07/22/2015 COVID-19 Vaccine ( season) 2023 02/17/2021, 05/15/2020, 04/17/2020 Pneumococcal Vaccine: [...] of this encounter Visit Diagnoses Diagnosis Ureterovaginal fistula Urinary-genital tract fistula, female documented in this encounter
--- OUTSIDE RECORDS SUMMARY | 2024-03-15 06:27 | External Medical Summary ---
Author Name Unknown Address Unknown Organization [id number]:[facility]ATORY [facility] [address] [place] [address] Laboratory Report Ordering Provider Test Date Status KEITH JACK 03/12/2024 09:42:30 Final Observation Date Value Abnormality Reference (Units ) Status BUN 03/12/2024 09:42:30 14 6-20 (mg/dL) Final Creatinine 03/12/2024 09:42:30 0.9 0.5-1.0 (mg/dL) Final Glomerular filtration rate/1.73 sq M.predicted [Volume Rate/Area] in Serum, Plasma or Blood by Creatinine-based formula (CKD-EPI) 03/12/2024 09:42:30 65 >=60 (mL/min) Final eGFR is calculated based on the CKD-EPI 2020 equation. Sodium 03/12/2024 09:42:30 138 135-146 (m mol/L) Final Potassium 03/12/2024 09:42:30 4.0 3.5-5.1 (m mol/L) Final Cl 03/12/2024 09:42:30 102 98-107 (mm ol/L) Final CO2 03/12/2024 09:42:30 22 22-32 (mmo l/L) Final Anion gap 03/12/2024 09:42:30 14 7-15 (mmol /L) Final Glucose 03/12/2024 09:42:30 185 Above high normal 70 -120 (mg/dL) Final Calcium 03/12/2024 09:42:30 9.6 8.4-10.2 ( mg/dL) Final Performing Location [facility] [place] [address] [place] [address]
--- OUTSIDE RECORDS SUMMARY | 2024-03-15 06:27 | External Medical Summary ---
Author Name Unknown Address Unknown Organization [id number]:LAB[facility]ATORY [facility] [place] - [address] [facility] [place] [address] Laboratory Report Ordering Provider Test Date Status KEITH JACK 03/12/2024 09:42:30 Final Observation Date Value Abnormality Reference (Units ) Status SYNC LEUKOCYTES IN BLOOD BY AUTOMATED COUNT 03/12/2024 09:42:30 7.85 4.00-10.80 (K/uL) Final Segs 03/12/2024 09:42:30 61.3 40.0-75.0 (%) Final Lymphs % 03/12/2024 09:42:30 18.3 18.0-42.0 (%) Final Monos 03/12/2024 09:42:30 5.2 1.0-11.0 (%) Final Eosinophils 03/12/2024 09:42:30 14.3 Above high normal 0.0-6.0 (%) Final Basos 03/12/2024 09:42:30 0.3 0.0-2.0 (%) Final Immature Granulocyte, Percent 03/12/2024 09:42:30 0.6 0.0-2.0 (%) Final Absolute Segs 03/12/2024 09:42:30 4.81 1.80-7.70 (K/uL) Final Lymphs, absolute 03/12/2024 09:42:30 1.44 1.00-4.80 (K/ul) Final Monos, Abs 03/12/2024 09:42:30 0.41 0.00-1.10 (K/uL) Final Eos, Abs 03/12/2024 09:42:30 1.12 Above high normal 0.00-0.70 (K/uL) Final Basos, Abs 03/12/2024 09:42:30 0.02 0.00-0.20 (K/uL) Final Immature Granulocytes, Number 03/12/2024 09:42:30 0.05 0.00-0.20 (K/uL) Final Performing Location LABORATORY [facility] [place] - [facility] [address] [facility] [address]
--- OUTSIDE RECORDS SUMMARY | 2024-03-15 06:27 | External Medical Summary ---
Author Name Unknown Address Unknown Organization : Laboratory Report Ordering Provider Test Date Status ARIK TRAN 03/12/2024 08:20:00 Final Observation Date Value Abnormality Reference (Units ) Status Color of Urine by Auto 03/12/2024 08:20:00 Yellow Light Yellow, Yellow Final Clarity, Urine 03/12/2024 08:20:00 Turbid Abnormal Clear Final Glucose [Mass/volume] in Urine by Automated test strip 03/12/2024 08:20:00 Negative Negative (mg/dL) Final Bilirubin.total [Presence] in Urine by Automated test strip 03/12/2024 08:20:00 Negative Negative Final Ketones [Mass/volume] in Urine by Automated test strip 03/12/2024 08:20:00 Trace Abnormal Negative (mg/dL) Final Specific gravity, Urine 03/12/2024 08:20:00 1.025 1.003-1.030 Final Hemoglobin [Presence] in Urine by Automated test strip 03/12/2024 08:20:00 Small Abnormal Negative Final pH, Urine 03/12/2024 08:20:00 5.5 5.0, 5.5, 6.0, 6.5, 7.0, 7.5 (units) Final Protein [Mass/volume] in Urine by Automated test strip 03/12/2024 08:20:00 100 Abnormal Negative (mg/dL) Final Urobilinogen, Urine 03/12/2024 08:20:00 0.2 0.2, 1.0 (mg/dL) Final Nitrite [Presence] in Urine by Automated test strip 03/12/2024 08:20:00 Negative Negative Final Leukocyte esterase [Presence] in Urine by Automated test strip 03/12/2024 08:20:00 Large Abnormal Negative Final Performing Location
--- NOTE | 2024-03-15 07:04 | Billing Data ---
Date of Service March 15, 2024 Coding Level of Care Code 72150 INT INP/OBS CARE
[2024-03-15] MEDS: ENOXAPARIN INJ 40 MG/0.4 ML SYR SQ SCH (08:26)
[2024-03-15] MEDS: dilTIAZem HCL 180 MG CAPCR PO SCH (08:26)
[2024-03-15] MEDS: lisinopril 20 MG TAB PO SCH (08:26)
[2024-03-15] MEDS: MULTIVITAMIN TAB PO SCH (08:26)
[2024-03-15] MEDS: MAGNESIUM OXIDE 400 MG TAB PO SCH (08:26)
[2024-03-15] MEDS: PANTOprazole 40 MG TAB PO SCH (08:26)
[2024-03-15] MEDS: GABAPENTIN 400 MG CAP PO SCH (08:27)
[2024-03-15] MEDS: INSULIN ASPART PER UNIT CHARGE SC SCH (08:28)
[2024-03-15] MEDS: LANTUS PER UNIT CHARGE SQ SCH (08:30)
--- NOTE | 2024-03-15 16:42 | Infectious Disease Consult ---
Date of Consultation March 15, 2024 Assessment & Plan (1) Ureterovaginal fistula: (2) Complicated UTI (urinary tract infection): Plan This is a 78-year-old female with a past medical history of cervical cancer status post radiation in 1982, peripheral neuropathy, DM2, hypertension admitted 01/15/2411/15/24 for left-sided pelvic pain ( had been found to have a left bladder mass adjacent to her cervix on CTAP - 01/09/24 though to be 2/2 prior radiation with significant obstruction of the left ureter with dilation down to the level of the bladder);underwent cystoscopy/vaginoscopy with left stent placement on 01/17/24 with urology;no bladder masses were found. There was healthy appearing bladder. Biopsies during the vaginoscopy which revealed necrotic tissue; , transvaginal ultrasound showed a complex fluid collection but c.o.d. audit clerk felt that this was not an abscess and not consistent with recurrent cervical cancer they recommend gynecologic follow-up. Urine Culturegrew 20 k Aerococcus urine. On 03/02/24, she underwent cystoscopy retrograde pyelogram and left ureteral stent exchange. Noted to have some purulent material and liquid collected within the vagina vault. The urethra was healthy. The bladder itself had cloudiness to the urine but otherwise no mucosal abnormalities. She was diagnosed with a left sided ureteral vaginal fistula and she was referred to urogynecology and reconstructive urology at [facility] for reconstruction. A Urine culture obtained 02/23 grew+ pans S psa.was placed on Cipro. She presented the ED on 03/09/24 - 03/11/24 with weakness and fatigue after syncopal episode and fall. She was found to have left foot metatarsal fracture and hard shoe placed. Urine culture w/ > 100 K E feacium and she was discharged on a 10-day course of linezolid She presents on 03/14/24 with nausea and vomiting. Her son reports a pattern over the few months of developing nausea and vomiting subsequently found to have a UTI. She was seen by urogynecology on 03/12/24 at [facility] for consult for reconstruction. She is scheduled to undergo cystoscopy there at the end of the month prior to the procedure. In ED, temperature 36.8, pulse 67, RR 17, blood pressure 167/73, 98% on room air. Labs: WBC 8.38, BUN 14, creatinine 0.92 urinalysis with greater than 50 WBC 3+ leukocyte esterase viral respiratory panel negative. She has been started on daptomycin. ID consulted for recurrent UTI, UV fistula. Microbiology UC 03/15 pending Prior Microbiology UC 03/10/23 > 100K E faecium R amp, S Vanco, Linezolid, dapro, nitro UC > 100K pansensitive Pseudomonas aer UC 20k CFU Aerococcus urinea UC Klebsiella pna ( I nitro) UC 08/19/21 E faecalisamp sensitive UC 08/05/21 E faecalisamp sensitive Antibiotics Daptomycin 03/14-ongoing # Ureterovaginal fistula - pending definitive surgery #Recurrent UTIs #History of cervical cancer sp radiation in Discussion-She was diagnosed with a left-sided ureteral vaginal fistula with indwelling stentin setting of prior radiation for cervical cancer and is pending definitive repair of the fistula Her UA and UC will likely be positive chronically as she has urinary connection to vaginal keo. Would treat as she is symptomatic. She complains of N/V which she usually gets with UTI per her report. Recommendations. Continue Daptomycin for recent E faecium in Urine culture. Follow up Urine culture and adjust abx based on cultures. Thank you for this consult. ID will continue to follow. Brittany Cash MD, MPH Infectious Disease [facility], ID Division Call [phone] with questions Consultation Information This patient recommendation is based on a telemedicine consult request which was completed asynchronously through chart review and information provided by [facility]. The patient was not seen or examined today. The evaluation is consultative in nature and all patient care and treatment decisions can either be accepted or rejected by the patient's primary hospital-based treating physician using their own independent medical judgment for their patient. [employer] contact information: Please call [facility] Call Center . (Phone Number For Physician Use Only) Time Spent Reviewing Chart: 31+ minutes History of Present Illness Reason for Consultation: Recurrent UTI, UV fistula Requesting Physician: Pietro Lewis MD Attending Physician: Pietro Lewis MD History of Present Illness This is a 78-year-old female with a past medical history of cervical cancer status post radiation in 1982, peripheral neuropathy, DM2, hypertension admitted 01/15/2411/15/24 for left-sided pelvic pain ( had been found to have a left bladder mass adjacent to her cervix on CTAP - 01/09/24 though to be 2/2 prior radiation with significant obstruction of the left ureter with dilation down to the level of the bladder);underwent cystoscopy/vaginoscopy with left stent placement on 01/17/24 with urology;no bladder masses were found. There was healthy appearing bladder. Biopsies during the vaginoscopy which revealed necrotic tissue; , transvaginal ultrasound showed a complex fluid collection but c.o.d. audit clerk felt that this was not an abscess and not consistent with recurrent cervical cancer they recommend gynecologic follow-up. Urine Culturegrew 20 k Aerococcus urine. On 03/02/24, she underwent cystoscopy retrograde pyelogram and left ureteral stent exchange. Noted to have some purulent material and liquid collected within the vagina vault. The urethra was healthy. The bladder itself had cloudiness to the urine but otherwise no mucosal abnormalities. She was diagnosed with a left sided ureteral vaginal fistula and she was referred to urogynecology and reconstructive urology at [facility] for reconstruction. A Urine culture obtained 02/23 grew+ pans S psa.was placed on Cipro. She presented the ED on 03/09/24 - 03/11/24 with weakness and fatigue after syncopal episode and fall. She was found to have left foot metatarsal fracture and hard shoe placed. Urine culture w/ > 100 K E feacium and she was discharged on a 10-day course of linezolid She presents on 03/14/24 with nausea and vomiting. Her son reports a pattern over the few months of developing nausea and vomiting subsequently found to have a UTI. She was seen by urogynecology on 03/12/24 at [facility] for consult for reconstruction. She is scheduled to undergo cystoscopy there at the end of the month prior to the procedure. In ED, temperature 36.8, pulse 67, RR 17, blood pressure 167/73, 98% on room air. Labs: WBC 8.38, BUN 14, creatinine 0.92 urinalysis with greater than 50 WBC 3+ leukocyte esterase viral respiratory panel negative. She has been star kaden on daptomycin. ID consulted for recurrent UTI, UV fistula. Allergies Allergy/AdvReac Type Severity Reaction Status Date / Time nitrofurantoin Allergy Intermediate Redness of Verified 03/10/24 01:59 [From Macrobid] Skin Home Medications Medication Instructions Recorded Confirmed Type diltiazem HCl 180 mg 180 mg PO QAM 06/23/21 03/14/24 History capsule,extended release 24 hr (Cardizem CD) lisinopril 20 mg tablet 20 mg PO QAM 06/23/21 03/14/24 History magnesium oxide 400 mg PO BID 06/23/21 03/14/24 History metformin 500 mg tablet 1,000 mg PO BID 06/23/21 03/14/24 History pantoprazole 40 mg tablet,delayed 40 mg PO QAM 06/23/21 03/14/24 History release (Protonix) multivitamin 1 cap PO QAM 07/14/21 03/14/24 History gabapentin 400 mg capsule 400 mg PO TID 01/16/24 03/14/24 History pravastatin 20 mg tablet 20 mg PO QAM 03/09/24 03/14/24 History insulin glargine 100 unit/mL (3 20 unit subcut QAM 03/10/24 03/14/24 History mL) subcutaneous pen (Lantus Solostar U-100 Insulin) linezolid 600 mg tablet 600 mg PO BID 10 days #20 tabs 03/11/24 03/14/24 Rx walker #1 ea 03/11/24 03/14/24 Rx Patient History Medical History Syncope and collapse Closed head injury Severe sepsis Sepsis due to urinary tract infection Encounter for pre-operative examination Ureteral obstruction, left Gross hematuria Bladder mass Osteoporosis GERD (gastroesophageal reflux disease) Sleep apnea no device Family history of reaction to anesthesia SISTER - N/V Nausea and vomiting after administration of anesthetic agent Frequent UTI as of 02/24/24, currently on abx HTN (hypertension) Diabetes NIDDM Cervical cancer hx 1982, hx radiation , and 2 nicole implants Surgical History History of transurethral resection of bladder tumor (TURBT) w/stent placement, 01/17/24, [facility] S/P cystoscopy with ureteral stent placement w/ureteroscopy, bilat. RP, urethral dilation, 2021 History of endoscopy History of colonoscopy History of surgery nicole implants for hx cervical cancer History of cholecystectomy Family History Grandmother Family history of diabetes mellitus Mother Pre-diabetes Social History Smoking Status: Never smoker Second Hand Exposure: No; Do You Dip or Chew Tobacco: No; Tobacco Cessation Education Requested by Patient: No Hx Alcohol Use: No Hx Substance Use: No Preferred Language: Singaporean Communication Ability: Effective Visual Coordinator Required: No Beliefs That Will Affect Care: None marital status: / Current Living Situation: Alone Current Living Situation Comment: home alone current occupational status: retired Other Information That Helps Us Care for You: No Feels Safe at Home: Yes Safety Concerns: Feels Safe At This Time Assistive Devices: Glasses Assistive Devices Comment: straight cath self Results & Data Vital Signs (Past 12 Hours) Vital Signs Temp Pulse Pulse Resp BP BP Pulse Ox 03/15/24 14:11 36.5 C 63 16 131/64 97 03/15/24 06:05 36.5 C 78 16 143/58 H 95 03/15/24 05:36 36.8 C 67 20 147/70 H 96 03/15/24 05:00 70 16 151/66 H 95 O2 Del Method 03/15/24 14:11 Room Air 03/15/24 06:05 Room Air 03/15/24 05:36 Room Air 03/15/24 05:00 Room Air Laboratory Results Laboratory Results - last 48 hr 03/14/24 03/15/24 03/15/24 23:30 00:35 01:08 WBC 8.38 RBC 3.49 L Hgb 9.8 L Hct 30.6 L MCV 87.7 MCH 28.1 MCHC 32.0 RDW Std Deviation 45.6 RDW Coeff of Anders 14.3 Plt Count 305 MPV 9.4 Immature Gran % (Auto) 0.4 Neut % (Auto) 52.8 Lymph % (Auto) 25.3 Toombs % (Auto) 6.4 Eos % (Auto) 14.6 Baso % (Auto) 0.5 Neut # (Auto) 4.43 Lymph # (Auto) 2.12 Toombs # (Auto) 0.54 Eos # (Auto) 1.22 H Baso # (Auto) 0.04 Immature Gran # (Auto) 0.03 Sodium 138 Potassium 3.8 Chloride 104 Carbon Dioxide 25 Anion Gap 9 BUN 14 Creatinine 0.92 Est Cr Clr Drug Dosing 48.2 eGFR 64.13 BUN/Creatinine Ratio 15.2 Glucose 100 H POC Glucose Lactate 1.3 Calcium 9.0 Total Bilirubin 0.3 AST 9 L ALT 7 Alkaline Phosphatase 39 Total Protein 7.1 Albumin 3.7 Globulin 3.4 Albumin/Globulin Ratio 1.1 Procalcitonin 0.11 Urine Color Yellow Urine Appearance Cloudy A Urine pH 5.5 Ur Specific Annabella 1.018 Urine Protein 2+ H Urine Glucose (UA) Negative Urine Ketones Negative Urine Blood 3+ H Urine Nitrite Negative Urine Bilirubin Negative Urine Urobilinogen Negative Ur Leukocyte Esterase 3+ H Urine WBC (Auto) >50 H Urine RBC (Auto) >20 H U Hyaline Cast (Auto) 0-2 U Epithel Cells (Auto) 0-2 Urine Bacteria (Auto) None Seen Calcium Oxalate Crystal Present A Urine Yeast Present A Adenovirus (PCR) Not Detected B. pertussis DNA (PCR) Not Detected B.parapertussis DNA PCR Not Detected C. pneumoniae DNA (PCR) Not Detected Coronavirus OC43 (PCR) Not Detected Coronavirus HKU1 (PCR) Not Detected Coronavirus 229E (PCR) Not Detected SARS-CoV-2 (PCR) Not Detected Coronavirus NL63 (PCR) Not Detected Human Metapneumovir PCR Not Detected Influenza Type A (PCR) Not Detected Influenza Type B (PCR) Not Detected M. pneumoniae (PCR) Not Detected Parainfluenza 1 (PCR) Not Detected Parainfluenza 2 (PCR) Not Detected Parainfluenza 3 (PCR) Not Detected Parainfluenza 4 (PCR) Not Detected RSV (PCR) Not Detected Entero/Rhino (PCR) Not Detected 03/15/24 03/15/24 07:46 11:19 WBC RBC Hgb Hct MCV MCH MCHC RDW Std Deviation RDW Coeff of Anders Plt Count MPV Immature Gran % (Auto) Neut % (Auto) Lymph % (Auto) Toombs % (Auto) Eos % (Auto) Baso % (Auto) Neut # (Auto) Lymph # (Auto) Toombs # (Auto) Eos # (Auto) Baso # (Auto) Immature Gran # (Auto) Sodium Potassium Chloride Carbon Dioxide Anion Gap BUN Creatinine Est Cr Clr Drug Dosing eGFR BUN/Creatinine Ratio Glucose POC Glucose 84 141 H Lactate Calcium Total Bilirubin AST ALT Alkaline Phosphatase Total Protein Albumin Globulin Albumin/Globulin Ratio Procalcitonin Urine Color Urine Appearance Urine pH Ur Specific Annabella Urine Protein Urine Glucose (UA) Urine Ketones Urine Blood Urine Nitrite Urine Bilirubin Urine Urobilinogen Ur Leukocyte Esterase Urine WBC (Auto) Urine RBC (Auto) U Hyaline Cast (Auto) U Epithel Cells (Auto) Urine Bacteria (Auto) Calcium Oxalate Crystal Urine Yeast Adenovirus (PCR) B. pertussis DNA (PCR) B.parapertussis DNA PCR C. pneumoniae DNA (PCR) Coronavirus OC43 (PCR) Coronavirus HKU1 (PCR) Coronavirus 229E (PCR) SARS-CoV-2 (PCR) Coronavirus NL63 (PCR) Human Metapneumovir PCR Influenza Type A (PCR) Influenza Type B (PCR) M. pneumoniae (PCR) Parainfluenza 1 (PCR) Parainfluenza 2 (PCR) Parainfluenza 3 (PCR) Parainfluenza 4 (PCR) RSV (PCR) Entero/Rhino (PCR) Medications Administered Home Medications Medication Instructions Recorded Confirmed Last Taken diltiazem HCl 180 mg 180 mg PO QAM 06/23/21 03/14/24 03/09/24 capsule,extended release 24 hr (Cardizem CD) lisinopril 20 mg tablet 20 mg PO QAM 06/23/21 03/14/24 03/09/24 magnesium oxide 400 mg PO BID 06/23/21 03/14/24 03/09/24 metformin 500 mg tablet 1,000 mg PO BID 06/23/21 03/14/24 03/09/24 pantoprazole 40 mg tablet,delayed 40 mg PO QAM 06/23/21 03/14/24 03/09/24 release (Protonix) multivitamin 1 cap PO QAM 07/14/21 03/14/24 03/09/24 gabapentin 400 mg capsule 400 mg PO TID 01/16/24 03/14/24 03/09/24 pravastatin 20 mg tablet 20 mg PO QAM 03/09/24 03/14/24 Unknown insulin glargine 100 unit/mL (3 20 unit subcut QA 03/10/24 03/14/24 03/09/24 mL) subcutaneous pen (Lantus Solostar U-100 Insulin) linezolid 600 mg tablet 600 mg PO BID 10 days #20 tabs 03/11/24 03/14/24 Unknown walker #1 ea 03/11/24 03/14/24 Unknown Active Medications Generic Name Dose Route Start Last Admin Trade Name Katia PRN Reason Stop Dose Admin Diltiazem HCl 180 mg 03/15/24 09:00 03/15/24 08:26 Diltiazem Hcl 180 Mg Capcr PO 04/14/24 08:59 180 mg QAM HANNAH Administration Enoxaparin Sodium 40 mg 03/15/24 09:00 03/15/24 08:26 Enoxaparin Inj 40 Mg/0.4 Ml Syr SQ 04/14/24 08:59 Not Given Q24H HANNAH Gabapentin 400 mg 03/15/24 09:00 03/15/24 13:39 Gabapentin 400 Mg Cap PO 04/14/24 08:59 Not Given TID HANNAH Insulin Aspart 0 units 03/15/24 07:30 03/15/24 12:37 Insulin Aspart Per Unit Charge SC 04/14/24 07:29 4 units ACHS HANNAH Administration Insulin Glargine 10 units 03/15/24 09:00 03/15/24 08:30 Lantus Per Unit Charge SQ 04/14/24 08:59 10 units BID HANNAH Administration Lisinopril 20 mg 03/15/24 09:00 03/15/24 08:26 Lisinopril 20 Mg Tab PO 04/14/24 08:59 20 mg QAM HANNAH Administration Magnesium Oxide 400 mg 03/15/24 09:00 03/15/24 08:26 Magnesium Oxide 400 Mg Tab PO 04/14/24 08:59 400 mg BID HANNAH Administration Multivitamins 1 tab 03/15/24 09:00 03/15/24 08:26 Multivitamin Tab PO 04/14/24 08:59 1 tab QAM HANNAH Administration Pantoprazole Sodium 40 mg 03/15/24 09:00 03/15/24 08:26 Pantoprazole 40 Mg Tab PO 04/14/24 08:59 40 mg QAM HANNAH Administration
[2024-03-16] MEDS: DAPTOmycin 225 MG in SYRINGE 0 ML IV SCH (00:22)
[2024-03-16 07:59] LABS: Basophils # (auto) 0.04 K/uL (0.00-0.20); Basophils % (auto) 0.5 %; Eosinophils # (auto) 1.07 K/uL (0.00-0.50); Eosinophils % (auto) 14.2 %; Hematocrit (blood only) 29.6 % (37.0-47.0); Hemoglobin 9.4 g/dl (12.0-16.0); Immature Granulocytes # (auto) 0.02 K/uL (0.01-0.20); Immature Granulocytes % (auto) 0.3 %; Lymphocytes # (auto) 1.95 K/uL (1.20-3.40); Lymphocytes % (auto) 25.9 %; Mean Corpuscular Hemoglobin 28.2 pg (25.0-34.0); Mean Corpuscular Hgb Conc 31.8 g/dL (32.0-36.0); Mean Corpuscular Volume 88.9 fL (80.0-100.0); Mean Platelet Volume 9.6 fL (9.4-12.4); Monocytes # (auto) 0.37 K/uL (0.11-0.59); Monocytes % (auto) 4.9 %; Neutrophils # (auto) 4.09 K/uL (1.40-6.50); Neutrophils % (auto) 54.2 %; Platelet Count 289 K/uL (130-400); RDW Coefficient of Variation 14.3 % (11.5-14.5); RDW Standard Deviation 45.9 fL (36.4-46.3); Red Blood Count 3.33 M/uL (4.20-5.40); White Blood Count 7.54 K/ul (4.8-10.8)
[2024-03-16 08:37] LABS: Albumin Globulin Ratio 1.2 (0.9-2); Albumin Level 3.6 gm/dl (3.4-5.0); Bilirubin,Total 0.4 mg/dl (0.2-1.0); Calcium 8.7 mg/dl (8.6-10.3); Creatinine Clr Calc Pharmacy 40.7 ml/min; Globulin 3.1 gm/dl (2.5-4.0); Magnesium 1.7 mg/dl (1.7-2.4); Potassium 3.6 mmol/L (3.5-5.1); Total Protein 6.7 gm/dl (6.0-8.3)
[2024-03-16] MEDS: FLUCONAZOLE 100 MG TAB PO ONE (14:33)
--- NOTE | 2024-03-16 14:37 | Hospitalist Progress Note ---
Date of Service March 16, 2024 Assessment & Plan (1) Complicated UTI (urinary tract infection): (2) Frequent UTI: (3) Ureterovaginal fistula: (4) Diabetes: (5) Hypertension: (6) GERD (gastroesophageal reflux disease): (7) HLD (hyperlipidemia): (8) Peripheral neuropathy: Plan 78 yo female PMHx T2DM on insulin, HTN, GERD, HLD, peripheral neuropathy, recurrent UTI and L-ureterovaginal fistula admitted for nausea and diarrhea. #Urinary Tract Infection Urine culture growing E fecium Continue daptomycin, ER physician discussed with pharmacy Monitor for signs of sepsis Given recurrence of UTIs and definitive treatment of fistula likely not for at [place] one month, would consider suppressive abx until closure of fistula is achieved Will defer to ID UTI on 03/10/24 with relatively resistant Enterococcus faecalis - currently being treated for this UTI on 02/24/2024 with pansensitive Pseudomonas UTI on 01/16/2024 with a Aerococcus UTI on 09/15/2021 with Klebsiella UTI on 08/05 and 08/19/2021 with Enterococcus faecalis #Ureterovaginal fistula as above, would consider ID consult re: suppressive antibiotics #T2DM home meds held last A1c 8.0 on 03/10/24 glargine 10U BID (home dosing is 20U daily) ISS #HTN continue diltiazem continue lisinopril #HLD hold statin 2/2 daptomycin use #GERD continue Protonix #Peripheral neuropathy continue gabapentin FENGI: T2DM diet, heart healthy Code status: full DVT prophylaxis: Lovenox Isolation: none Disposition: medical Admission and Anticipated Discharge Date Admission Date: March 15, 2024 Subjective patient seen and examined, no new complaints Review of Systems Review of Systems: All systems reviewed are negative, apart from the ones contained in the history. Physical Exam Physical Exam: The patient is awake, alert and oriented 3, well developed and well nourished, normocephalic and atraumatic, lying in bed and in no acute distress. HEENT--PERRL, EOMI, mucous membranes and oropharynx mildly dry Neck--supple. No JVD. No bruits. Thyroid normal, trachea midline, no adenopathy. Heart--normal S1 and S2. No murmurs, rubs or gallops. Lungs--clear bilaterally, no respiratory distress, no accessory muscle use. Abdomen--normal bowel sounds and soft. Extremities--no cyanosis or clubbing. No edema. Dermatologic--normal skin turgor, normal color, no abnormal lymph nodes, no rash. Neurologic--cranial nerves II through XII grossly intact. Rheumatologic--normal range of motion. Psychiatric--normal affect. Results & Data Results & Data Vital Signs (Past 12 Hours) Vital Signs Temp Pulse Pulse Resp BP Pulse Ox O2 Del Method 03/16/24 13:52 97.9 F 58 L 62 18 140/60 95 Room Air 03/16/24 08:04 97.3 F L 60 18 160/64 H 97 Room Air PG Care Time/CCT Total # of Minutes Spent Total Time Spent with Patient: Total time spent is greater than 50% in coordination of care (as documented) at patient's floor/unit and/or counseling patient: Coding Level of Care Code 33375 SUB INP/OBS CARE 2/35MIN Diagnoses Complicated UTI (urinary tract infection) N39.0 Frequent UTI N39.0 Ureterovaginal fistula N82.1 Diabetes E11.9 Hypertension I10 GERD (gastroesophageal reflux disease) K21.9 HLD (hyperlipidemia) E78.5 Peripheral neuropathy G62.9 Time Spent (min) 35
--- NOTE | 2024-03-16 16:06 | Infectious Disease Progress Nt ---
Date of Service March 16, 2024 Assessment & Plan (1) Ureterovaginal fistula: (2) Complicated UTI (urinary tract infection): Plan This is a 78-year-old female with a past medical history of cervical cancer status post radiation in 1982, peripheral neuropathy, DM2, hypertension admitted 01/15/2411/15/24 for left-sided pelvic pain ( had been found to have a left bladder mass adjacent to her cervix on CTAP - 01/09/24 though to be 2/2 prior radiation with significant obstruction of the left ureter with dilation down to the level of the bladder);underwent cystoscopy/vaginoscopy with left stent placement on 01/17/24 with urology;no bladder masses were found. There w as healthy appearing bladder. Biopsies during the vaginoscopy which revealed necrotic tissue; , transvaginal ultrasound showed a complex fluid collection but search engine marketing strategist felt that this was not an abscess and not consistent with recurrent cervical cancer they recommend gynecologic follow-up. Urine Culturegrew 20 k Aerococcus urine. On 03/02/24, she underwent cystoscopy retrograde pyelogram and left ureteral stent exchange. Noted to have some purulent material and liquid collected within the vagina vault. The urethra was healthy. The bladder itself had cloudiness to the urine but otherwise no mucosal abnormalities. She was diagnosed with a left sided ureteral vaginal fistula and she was referred to urogynecology and reconstructive urology at [facility] for reconstruction. A Urine culture obtained 02/23 grew+ pans S psa.was placed on Cipro. She presented the ED on 03/09/24 - 03/11/24 with weakness and fatigue after syncopal episode and fall. She was found to have left foot metatarsal fracture and hard shoe placed. Urine culture > 100 K E feacium and she was discharged on a 10-day course of linezolid She presents on 03/14/24 with nausea and vomiting. Her son reports a pattern over the few months of developing nausea and vomiting subsequently found to have a UTI. She was seen by urogynecology on 03/12/24 at [facility] for consult for reconstruction. She is scheduled to undergo cystoscopy there at the end of the month prior to the procedure. In ED, temperature 36.8, pulse 67, RR 17, blood pressure 167/73, 98% on room air. Labs: WBC 8.38, BUN 14, creatinine 0.92 urinalysis with greater than 50 WBC 3+ leukocyte esterase viral respiratory panel negative. She has been started on daptomycin. ID consulted for recurrent UTI, UV fistula. Microbiology UC 03/15 100 K miki tropicalis Prior Microbiology UC 03/10/23 > 100K E faecium R amp, S Vanco, Linezolid, dapro, nitro UC > 100K pansensitive Pseudomonas aer UC 20k CFU Aerococcus urinae UC Klebsiella pna ( I nitro) UC 08/19/21 E faecalisamp sensitive UC 08/05/21 E faecalisamp sensitive Antibiotics Daptomycin 03/14-ongoing # Ureterovaginal fistula - pending definitive surgery #Recurrent UTIs #History of cervical cancer sp radiation in Discussion-She was diagnosed with a left-sided ureteral vaginal fistula with indwelling stent in setting of prior radiation for cervical cancer and is pending definitive repair of the fistula Her UA and UC will likely be positive chronically as she has urinary connection to vaginal keo. Would treat as she is symptomatic. She complains of N/V which she usually gets with UTI per her report. 03/16 Urine culture with Miki tropicalis so far. No E faecium growth. It is noted that she had been on at least 5 days of linezolid prior to admission. I discussed the patient's course with her [id number] on the phone who provides most of her care. Updated her on all available results. She is a at risk for continued pyuria, candiduria, bacteriuria and UTI given fistula. Per discussion with her [id number], patient has become more more "symptomatic" with UTI episode-- nausea and vomiting requiring admissions. She has had different organisms in the urine in the past and may be difficult to suppress prior to her definitive surgery. Although miki in urine is usually seen as a contaminant, she is having nausea, would recommended treating Miki now and then attempt bacterial suppression with fosfomycin weekly ( cr cl > 40) pending definitive fistula therapy. She self caths and denies local urinary symptoms. She is not able to empty the bladder completely and has dribbling through vagina. I explained to patient and daughter in law that we can not guarantee that she will not develop another UTI especially if an organism not S to fosfomycin grows. Recommendations: Continue Daptomycin for recent E faecium in Urine culture pending final cx . If no Enterococcus, then discontinue Started Fluconazole 200 mg po daily. Complete 14 days (03/16-03/29). QTC; 439 on 03/09/24, lfts WNL 03/16/24 if no other organism other than miki, then give ONE dose of fosfomycin 3 g PO and send with prescription for fosfomycin 3 g PO once WEEKLY until her procedure at the end of the month . Follow up Urine culture to ensure no other organisms grow. Please have her ESTABlish care with LOCAL ID for continued evaluation. . ID will sign off. Please call with questions or if another organism other than miki grows in urine. Brittany Cash MD, MPH Infectious Disease [facility], [facility] Call [phone] with questions Admission and Anticipated Discharge Date Admission Date: March 15, 2024 Subjective Subsequent visit was provided via telemedicine using two-way real-time interactive telecommunication between the patient and the telemedicine provider. For the duration of the visit, the provider was performing the assessment from a different facility than the patient. This includesuse of bluetooth steth oscope forauscultationperformed by the telepresenter that the telemedicine provider can hear if described in the physical exam. Millinery Designer contact information: Please call [facility] Call Center . (Phone Number For Physician Use Only) After establishing a telemedicine visit, patient was: Patient was verified with two unique identifiers Time Spent with Patient: Subsequent => 35 min Mild nausea Afebrile. Physical Exam Physical Exam: Gen- NAD Neck- supple Abd- soft, not tender, not distended - no suprapubic, or cva tenderness Lung - non lobored breathing Ext- No edema Neuro- AAO times 3 Psych- cooperative Results & Data Vital Signs (Past 12 Hours) Vital Signs Temp Pulse Pulse Resp BP Pulse Ox O2 Del Method 03/16/24 13:52 36.6 C 58 L 62 18 140/60 95 Room Air 03/16/24 08:04 36.3 C L 60 18 160/64 H 97 Room Air Laboratory Results Laboratory Results - last 48 hr 03/14/24 03/15/24 03/15/24 23:30 00:35 01:08 WBC 8.38 RBC 3.49 L Hgb 9.8 L Hct 30.6 L MCV 87.7 MCH 28.1 MCHC 32.0 RDW Std Deviation 45.6 RDW Coeff of Anders 14.3 Plt Count 305 MPV 9.4 Immature Gran % (Auto) 0.4 Neut % (Auto) 52.8 Lymph % (Auto) 25.3 [place] % (Auto) 6.4 Eos % (Auto) 14.6 Baso % (Auto) 0.5 Neut # (Auto) 4.43 Lymph # (Auto) 2.12 [place] # (Auto) 0.54 Eos # (Auto) 1.22 H Baso # (Auto) 0.04 Immature Gran # (Auto) 0.03 Sodium 138 Potassium 3.8 Chloride 104 Carbon Dioxide 25 Anion Gap 9 BUN 14 Creatinine 0.92 Est Cr Clr Drug Dosing 48.2 eGFR 64.13 BUN/Creatinine Ratio 15.2 Glucose 100 H POC Glucose Lactate 1.3 Calcium 9.0 Magnesium Total Bilirubin 0.3 AST 9 L ALT 7 Alkaline Phosphatase 39 Total Protein 7.1 Albumin 3.7 Globulin 3.4 Albumin/Globulin Ratio 1.1 Procalcitonin 0.11 Urine Color Yellow Urine Appearance Cloudy A Urine pH 5.5 Ur Specific [place] 1.018 Urine Protein 2+ H Urine Glucose (UA) Negative Urine Ketones Negative Urine Blood 3+ H Urine Nitrite Negative Urine Bilirubin Negative Urine Urobilinogen Negative Ur Leukocyte Esterase 3+ H Urine WBC (Auto) >50 H Urine RBC (Auto) >20 H U Hyaline Cast (Auto) 0-2 U Epithel Cells (Auto) 0-2 Urine Bacteria (Auto) None Seen Calcium Oxalate Crystal Present A Urine Yeast Present A Adenovirus (PCR) Not Detected B. pertussis DNA (PCR) Not Detected B.parapertussis DNA PCR Not Detected C. pneumoniae DNA (PCR) Not Detected Coronavirus OC43 (PCR) Not Detected Coronavirus HKU1 (PCR) Not Detected Coronavirus 229E (PCR) Not Detected SARS-CoV-2 (PCR) Not Detected Coronavirus NL63 (PCR) Not Detected Human Metapneumovir PCR Not Detected Influenza Type A (PCR) Not Detected Influenza Type B (PCR) Not Detected M. pneumoniae (PCR) Not Detected Parainfluenza 1 (PCR) Not Detected Parainfluenza 2 (PCR) Not Detected Parainfluenza 3 (PCR) Not Detected Parainfluenza 4 (PCR) Not Detected RSV (PCR) Not Detected Entero/Rhino (PCR) Not Detected 03/15/24 03/15/24 03/15/24 07:46 11:19 17:04 WBC RBC Hgb Hct MCV MCH MCHC RDW Std Deviation RDW Coeff of Anders Plt Count MPV Immature Gran % (Auto) Neut % (Auto) Lymph % (Auto) [place] % (Auto) Eos % (Auto) Baso % (Auto) Neut # (Auto) Lymph # (Auto) [place] # (Auto) Eos # (Auto) Baso # (Auto) Immature Gran # (Auto) Sodium Potassium Chloride Carbon Dioxide Anion Gap BUN Creatinine Est Cr Clr Drug Dosing eGFR BUN/Creatinine Ratio Glucose POC Glucose 84 141 H 64 L* Lactate Calcium Magnesium Total Bilirubin AST ALT Alkaline Phosphatase Total Protein Albumin Globulin Albumin/Globulin Ratio Procalcitonin Urine Color Urine Appearance Urine pH Ur Specific [place] Urine Protein Urine Glucose (UA) Urine Ketones Urine Blood Urine Nitrite Urine Bilirubin Urine Urobilinogen Ur Leukocyte Esterase Urine WBC (Auto) Urine RBC (Auto) U Hyaline Cast (Auto) U Epithel Cells (Auto) Urine Bacteria (Auto) Calcium Oxalate Crystal Urine Yeast Adenovirus (PCR) B. pertussis DNA (PCR) B.parapertussis DNA PCR C. pneumoniae DNA (PCR) Coronavirus OC43 (PCR) Coronavirus HKU1 (PCR) Coronavirus 229E (PCR) SARS-CoV-2 (PCR) Coronavirus NL63 (PCR) Human Metapneumovir PCR Influenza Type A (PCR) Influenza Type B (PCR) M. pneumoniae (PCR) Parainfluenza 1 (PCR) Parainfluenza 2 (PCR) Parainfluenza 3 (PCR) Parainfluenza 4 (PCR) RSV (PCR) Entero/Rhino (PCR) 03/15/24 03/15/24 03/16/24 17:05 20:57 07:18 WBC 7.54 RBC 3.33 L Hgb 9.4 L Hct 29.6 L MCV 88.9 MCH 28.2 MCHC 31.8 L RDW Std Deviation 45.9 RDW Coeff of Anders 14.3 Plt Count 289 MPV 9.6 Immature Gran % (Auto) 0.3 Neut % (Auto) 54.2 Lymph % (Auto) 25.9 [place] % (Auto) 4.9 Eos % (Auto) 14.2 Baso % (Auto) 0.5 Neut # (Auto) 4.09 Lymph # (Auto) 1.95 [place] # (Auto) 0.37 Eos # (Auto) 1.07 H Baso # (Auto) 0.04 Immature Gran # (Auto) 0.02 Sodium 140 Potassium 3.6 Chloride 105 Carbon Dioxide 27 Anion Gap 8 BUN 13 Creatinine 1.00 Est Cr Clr Drug Dosing 40.7 eGFR 58.02 BUN/Creatinine Ratio 13.0 Glucose 108 H POC Glucose 67 L* 135 H Lactate Calcium 8.7 Magnesium 1.7 Total Bilirubin 0.4 AST 16 ALT 10 Alkaline Phosphatase 37 Total Protein 6.7 Albumin 3.6 Globulin 3.1 Albumin/Globulin Ratio 1.2 Procalcitonin Urine Color Urine Appearance Urine pH Ur Specific [place] Urine Protein Urine Glucose (UA) Urine Ketones Urine Blood Urine Nitrite Urine Bilirubin Urine Urobilinogen Ur Leukocyte Esterase Urine WBC (Auto) Urine RBC (Auto) U Hyaline Cast (Auto) U Epithel Cells (Auto) Urine Bacteria (Auto) Calcium Oxalate Crystal Urine Yeast Adenovirus (PCR) B. pertussis DNA (PCR) B.parapertussis DNA PCR C. pneumoniae DNA (PCR) Coronavirus OC43 (PCR) Coronavirus HKU1 (PCR) Coronavirus 229E (PCR) SARS-CoV-2 (PCR) Coronavirus NL63 (PCR) Human Metapneumovir PCR Influenza Type A (PCR) Influenza Type B (PCR) M. pneumoniae (PCR) Parainfluenza 1 (PCR) Parainfluenza 2 (PCR) Parainfluenza 3 (PCR) Parainfluenza 4 (PCR) RSV (PCR) Entero/Rhino (PCR) 03/16/24 03/16/24 07:42 11:34 WBC RBC Hgb Hct MCV MCH MCHC RDW Std Deviation RDW Coeff of Anders Plt Count MPV Immature Gran % (Auto) Neut % (Auto) Lymph % (Auto) [place] % (Auto) Eos % (Auto) Baso % (Auto) Neut # (Auto) Lymph # (Auto) [place] # (Auto) Eos # (Auto) Baso # (Auto) Immature Gran # (Auto) Sodium Potassium Chloride Carbon Dioxide Anion Gap BUN Creatinine Est Cr Clr Drug Dosing eGFR BUN/Creatinine Ratio Glucose POC Glucose 113 H 154 H Lactate Calcium Magnesium Total Bilirubin AST ALT Alkaline Phosphatase Total Protein Albumin Globulin Albumin/Globulin Ratio Procalcitonin Urine Color Urine Appearance Urine pH Ur Specific [place] Urine Protein Urine Glucose (UA) Urine Ketones Urine Blood Urine Nitrite Urine Bilirubin Urine Urobilinogen Ur Leukocyte Esterase Urine WBC (Auto) Urine RBC (Auto) U Hyaline Cast (Auto) U Epithel Cells (Auto) Urine Bacteria (Auto) Calcium Oxalate Crystal Urine Yeast Adenovirus (PCR) B. pertussis DNA (PCR) B.parapertussis DNA PCR C. pneumoniae DNA (PCR) Coronavirus OC43 (PCR) Coronavirus HKU1 (PCR) Coronavirus 229E (PCR) SARS-CoV-2 (PCR) Coronavirus NL63 (PCR) Human Metapneumovir PCR Influenza Type A (PCR) Influenza Type B (PCR) M. pneumoniae (PCR) Parainfluenza 1 (PCR) Parainfluenza 2 (PCR) Parainfluenza 3 (PCR) Parainfluenza 4 (PCR) RSV (PCR) Entero/Rhino (PCR) Diagnostic Findings Microbiology 03/15/24 00:35 Urine,Straight Cath Urine Culture - Preliminary Miki tropicalis Medications Administered Home Medications Medication Instructions Recorded Confirmed Last Taken diltiazem HCl 180 mg 180 mg PO QAM 06/23/21 03/14/24 03/09/24 capsule,extended release 24 hr (Cardizem CD) lisinopril 20 mg tablet 20 mg PO QAM 06/23/21 03/14/24 03/09/24 magnesium oxide 400 mg PO BID 06/23/21 03/14/24 03/09/24 metformin 500 mg tablet 1,000 mg PO BID 06/23/21 03/14/24 03/09/24 pantoprazole 40 mg tablet,delayed 40 mg PO QAM 06/23/21 03/14/24 03/09/24 release (Protonix) multivitamin 1 cap PO QAM 07/14/21 03/14/24 03/09/24 gabapentin 400 mg capsule 400 mg PO TID 01/16/24 03/14/24 03/09/24 pravastatin 20 mg tablet 20 mg PO QAM 03/09/24 03/14/24 Unknown insulin glargine 100 unit/mL (3 20 unit subcut QA 03/10/24 03/14/24 03/09/24 mL) subcutaneous pen (Lantus Solostar U-100 Insulin) linezolid 600 mg tablet 600 mg PO BID 10 days #20 tabs 03/11/24 03/14/24 Unknown walker #1 ea 03/11/24 03/14/24 Unknown Active Medications Generic Name Dose Route Start Last Admin Trade Name Katia PRN Reason Stop Dose Admin Diltiazem HCl 180 mg 03/15/24 09:00 03/16/24 08:07 Diltiazem Hcl 180 Mg Capcr PO 04/14/24 08:59 180 mg QAM HANNAH Administration Enoxaparin Sodium 40 mg 03/15/24 09:00 03/16/24 08:07 Enoxaparin Inj 40 Mg/0.4 Ml Syr SQ 04/14/24 08:59 40 mg Q24H HANNAH Administration Gabapentin 400 mg 03/15/24 09:00 03/16/24 13:37 Gabapentin 400 Mg Cap PO 04/14/24 08:59 Not Given TID HANNAH Daptomycin 225 mg/ Syringe 4.5 mls @ 2.25 mls/min 03/16/24 01:00 03/16/24 00:22 IV 03/26/24 00:59 2.25 mls/min Q24H HANNAH Administration Protocol Insulin Aspart 0 units 03/15/24 07:30 03/16/24 12:38 Insulin Aspart Per Unit Charge SC 04/14/24 07:29 3 units ACHS HANNAH Administration Insulin Glargine 10 units 03/15/24 09:00 03/16/24 08:53 Lantus Per Unit Charge SQ 04/14/24 08:59 10 units BID HANNAH Administration Lisinopril 20 mg 03/15/24 09:00 03/16/24 08:07 Lisinopril 20 Mg Tab PO 04/14/24 08:59 20 mg QAM HANNAH Administration Magnesium Oxide 400 mg 03/15/24 09:00 03/16/24 08:07 Magnesium Oxide 400 Mg Tab PO 04/14/24 08:59 400 mg BID HANNAH Administration Multivitamins 1 tab 03/15/24 09:00 03/16/24 08:07 Multivitamin Tab PO 04/14/24 08:59 1 tab QAM HANNAH Administration Pantoprazole Sodium 40 mg 03/15/24 09:00 03/16/24 08:06 Pantoprazole 40 Mg Tab PO 04/14/24 08:59 40 mg QAM HANNAH Administration
[2024-03-16] MEDS ORDERED: GLUCOSE 40% GEL 15 GM TUBE PO PRN (18:15)
[2024-03-16] MEDS ORDERED: GLUCAGON FOR INJ 1 MG VIAL SQ PRN (18:15)
[2024-03-16] MEDS ORDERED: DEXTROSE 50% 50 ML SYRINGE IV PRN (18:15)
[2024-03-16] MEDS ORDERED: CARBOHYDRATES FOR HYPOGLYCEMIA PO PRN (18:15)
[2024-03-16] MEDS ORDERED: GLUCOSE 10 TAB/TUBE PO PRN (18:15)
[2024-03-16 19:38] VITALS: TEMP 98.1
[2024-03-17 08:00] VITALS: BP 131/75; PULSE 78; RESP 18; O2SAT 93
[2024-03-17] MEDS: FLUCONAZOLE 100 MG TAB PO SCH (08:32)
[2024-03-17 08:40] LABS: Hemoglobin 9.5 g/dl (12.0-16.0); Mean Corpuscular Hgb Conc 31.7 g/dL (32.0-36.0); Mean Corpuscular Volume 88.5 fL (80.0-100.0); Mean Platelet Volume 9.3 fL (9.4-12.4); Platelet Count 285 K/uL (130-400); RDW Coefficient of Variation 14.3 % (11.5-14.5); RDW Standard Deviation 45.5 fL (36.4-46.3); Red Blood Count 3.39 M/uL (4.20-5.40); White Blood Count 7.24 K/ul (4.8-10.8)
[2024-03-17 08:58] LABS: BUN Creatinine Ratio 14.9 (10-20); Creatinine Clr Calc Pharmacy 40.3 ml/min; Potassium 3.7 mmol/L (3.5-5.1)
--- NOTE | 2024-03-17 14:22 | Discharge Summary ---
Date of Service March 17, 2024 Admission HPI Per Admitting Provider 78 yo female PMHx T2DM on insulin, HTN, GERD, HLD, peripheral neuropathy, recurrent UTI and L-ureterovaginal fistula admitted for nausea and diarrhea. Per patient and her son, she has a pattern over the last few months of developing nausea and vomiting and subsequently developing sepsis with a urinary source. She was recently discharged from [facility] on 03/11/24 after developing sepsis 2/2 urinary source. Her urine culture at that admission grew Enterococcus faecium that had an extensive resistance pattern but was susceptible to linezolid. She was discharged on linezolid. During that same admission she was diagnosed with metatarsal fracture of the left foot. She is currently in a hard shoe for this. She was recently diagnosed with a L-ureterovaginal fistula 03/02/[address] Johnson. She was seen on 03/12/24 by urogyenecology at [facility] for consultation re: reconstruction. She will undergo cystoscopy there at the end of this month in order to plan for this procedure. At the time of e xamination, the patient was resting comfortably without acute complaints. ED course: VSS, Labs largely unremarkable 1L NSS Zofran IV x1 Started on Daptomycin Admission Exam (Per Admitting) Constitutional The patient is awake, alert and oriented 3, well developed and well nourished, normocephalic and atraumatic, lying in bed and in no acute distress. HEENT--PERRL, EOMI, mucous membranes and oropharynx mildly dry Neck--supple. No JVD. No bruits. Thyroid normal, trachea midline, no adenopathy. Heart--normal S1 and S2. No murmurs, rubs or gallops. Lungs--clear bilaterally, no respiratory distress, no accessory muscle use. Abdomen--normal bowel sounds and soft. Extremities--no cyanosis or clubbing. No edema. Dermatologic--normal skin turgor, normal color, no abnormal lymph nodes, no rash. Neurologic--cranial nerves II through XII grossly intact. Rheumatologic--normal range of motion. Psychiatric--normal affect. Discharge Data Consultations 03/15/24 02:41 ED Decision to Admit Stat 03/15/24 07:36 Consult Infectious Diseases Routine Hospital Course (1) Complicated UTI (urinary tract infection): (2) Frequent UTI: (3) Ureterovaginal fistula: (4) Diabetes: (5) Hypertension: (6) GERD (gastroesophageal reflux disease): (7) HLD (hyperlipidemia): (8) Peripheral neuropathy: Plan 78 yo female PMHx T2DM on insulin, HTN, GERD, HLD, peripheral neuropathy, recurrent UTI and L-ureterovaginal fistula admitted for nausea and diarrhea. #Urinary Tract Infection Previous Urine culture grew E fecium, for which she completed Lindezolid Current culture grew Helen Tropicalis Continue daptomycin here in the hospital Given recurrence of UTIs and definitive treatment of fistula likely not for at least one month, would consider suppressive abx until closure of fistula is achieved Per Id recommendation, will d/c on PO Fluconazole for 10 days and PO Fosfomycin 3g weekly for 4 weeks She will get her surgery on 04/06 [facility] #Ureterovaginal fistula as above, would consider ID consult re: suppressive antibiotics #T2DM home meds held last A1c 8.0 on 03/10/24 glargine 10U BID (home dosing is 20U daily) ISS #HTN continue diltiazem continue lisinopril #HLD hold statin 2/2 daptomycin use #GERD continue Protonix #Peripheral neuropathy continue gabapentin FENGI: T2DM diet, heart healthy Code status: full DVT prophylaxis: Lovenox Isolation: none Disposition: medical Coding Level of Care Code 58864 INP/OBS DISCH >30 MIN Diagnoses Complicated UTI (urinary tract infection) N39.0 Frequent UTI N39.0 Ureterovaginal fistula N82.1 Diabetes E11.9 Hypertension I10 GERD (gastroesophageal reflux disease) K21.9 HLD (hyperlipidemia) E78.5 Peripheral neuropathy G62.9 Time Spent (min) 35
== END 2024-03-17 13:57 | disposition home or self-care (01) | DRG 758 ==
LOC: ED 22:47 → 3N 03-15 03:59 → SUATTDRO 03-15 03:59 → 3N 03-15 05:36